=== PATIENT | female | born 1970 | race Caucasian/White ===

== ENCOUNTER 2021-01-22 13:50 | Emergency (ER) | payer MEDICARE ==
[~2021-01-22] VITALS: Ht 162.6 cm; Wt 88.5 kg
[2021-01-22 14:22] LABS: Basophils # (auto) 0.1 10 ^3/uL (0-0.2); Basophils % (auto) 1.1 % (0.0-2.0); Eosinophils # (auto) 0.2 10 ^3/uL (0-0.8); Eosinophils % (auto) 1.7 % (0.0-7.0); Hematocrit 44.3 % (36.0-46.0); Hemoglobin 15.3 g/dL (12.2-16.2); Lymphocytes # (auto) 3.5 10 ^3/uL (0.4-5.4); Mean Corpuscular Hemoglobin 33.6 pg (28.0-32.0); Mean Corpuscular Hgb Conc. 34.5 g/dL (32.0-36.0); Mean Corpuscular Volume 97.4 fL (80.0-100.0); Monocytes # (auto) 0.8 10 ^3/uL (0-1.3); Monocytes % (auto) 8.5 % (0.0-12.0); Neutrophils # (auto) 4.7 10 ^3/uL (1.6-8.6); Neutrophils % (auto) 50.7 % (37.0-80.0); Nucleated Red Blood Cells % 0.1 %; Red Blood Cells 4.54 10^6/uL (4.0-5.20); Red Cell Distribution Width 13.9 % (11.8-14.3); White Blood Cell 9.2 10^3/uL (4.4-10.8)
[2021-01-22 14:54] LABS: Anion Gap 2 (5-15); Blood Urea Nitrogen 17 mg/dL (7-18); Calcium 9.1 mg/dL (8.5-10.1); Carbon Dioxide 33 mmol/L (21-32); Chloride 105 mmol/L (98-107); Glucose 69 mg/dL (74-106); Magnesium 2.5 mg/dL (1.6-2.6); Potassium 3.9 mmol/L (3.5-5.1); Sodium 140 mmol/L (136-145)
[2021-01-22 15:00] LABS: Alanine Aminotransferase 24 U/L (13-56); Alkaline Phosphatase 46 U/L (45-117); Aspartate Aminotransferase 17 U/L (15-37); BUN/Creatinine Ratio 27.4; Bilirubin, Total 0.7 mg/dL (0.2-1.0); GFR African American 129 mL/min; GFR Non-African American 107 mL/min; Total Protein 7.2 g/dL (6.4-8.2)
[2021-01-22 16:30] VITALS: BP 151/99
== END 2021-01-22 16:43 | disposition home or self-care (01) ==
LOC: ER 13:50 → EDBD 13:50 → ER 16:43
DX: J20.9 Acute bronchitis, unspecified (principal); E78.5 Hyperlipidemia, unspecified; Z90.710 Acquired absence of both cervix and uterus; Z90.89 Acquired absence of other organs; Z88.2 Allergy status to sulfonamides
CPT/HCPCS: 36415; 71046; 80053; 83735; 83880; 84484; 85025; 85379; 93005

== ENCOUNTER 2021-10-03 00:05 | Emergency (ER) | payer MEDICARE, BC ==
[~2021-10-03] VITALS: Ht 162.6 cm; Wt 95.3 kg
[2021-10-03 03:56] LABS: Calcium 8.7 mg/dL (8.5-10.1); Potassium 4.3 mmol/L (3.5-5.1)
[2021-10-03 03:57] LABS: Basophils # (auto) 0 10 ^3/uL (0-0.2); Basophils % (auto) 0.3 % (0.0-2.0); Eosinophils # (auto) 0.2 10 ^3/uL (0-0.8); Eosinophils % (auto) 2.4 % (0.0-7.0); Hematocrit 37.8 % (36.0-46.0); Lymphocytes # (auto) 2.6 10 ^3/uL (0.4-5.4); Lymphocytes % (auto) 39.3 % (10.0-50.0); Mean Corpuscular Hemoglobin 31.5 pg (28.0-32.0); Mean Corpuscular Hgb Conc. 34.3 g/dL (32.0-36.0); Mean Corpuscular Volume 91.8 fL (80.0-100.0); Monocytes # (auto) 0.4 10 ^3/uL (0-1.3); Monocytes % (auto) 6.5 % (0.0-12.0); Neutrophils # (auto) 3.4 10 ^3/uL (1.6-8.6); Neutrophils % (auto) 51.5 % (37.0-80.0); Red Blood Cells 4.11 10^6/uL (4.0-5.20); Red Cell Distribution Width 13.1 % (11.8-14.3); White Blood Cell 6.5 10^3/uL (4.4-10.8)
[2021-10-03 04:02] LABS: Albumin 4.3 g/dL (3.4-5.0); BUN/Creatinine Ratio 21.7; Bilirubin, Total 0.6 mg/dL (0.2-1.0); Magnesium 2.9 mg/dL (1.6-2.6)
[2021-10-03 05:10] VITALS: BP 138/78
== END 2021-10-03 05:13 | disposition home or self-care (01) ==
LOC: EDUNIT# 00:05 → ER 00:05
DX: R55 Syncope and collapse (principal); R42 Dizziness and giddiness; Z90.710 Acquired absence of both cervix and uterus
CPT/HCPCS: 36415; 70450; 80053; 83735; 85025; 93005

== ENCOUNTER 2025-02-23 17:35 | Inpatient (IN) | payer OTHER, BC ==
[~2025-02-23] VITALS: Ht 162.6 cm; Wt 92.8 kg
[2025-02-23 18:16] LABS: Basophils # (auto) 0.1 10 ^3/uL (0-0.2); Basophils % (auto) 0.5 % (0.0-2.0); Eosinophils # (auto) 0.1 10 ^3/uL (0-0.8); Eosinophils % (auto) 0.7 % (0.0-7.0); Hematocrit 48.9 % (36.0-46.0); Hemoglobin 16.3 g/dL (12.2-16.2); Lymphocytes # (auto) 2.9 10 ^3/uL (0.4-5.4); Lymphocytes % (auto) 25.4 % (10.0-50.0); Mean Corpuscular Hemoglobin 31.8 pg (28.0-32.0); Mean Corpuscular Hgb Conc. 33.3 g/dL (32.0-36.0); Mean Corpuscular Volume 95.5 fL (80.0-100.0); Monocytes # (auto) 0.6 10 ^3/uL (0-1.3); Monocytes % (auto) 5.4 % (0.0-12.0); Neutrophils # (auto) 7.8 10 ^3/uL (1.6-8.6); Nucleated Red Blood Cells % 0.1 %; Platelet Count (auto) 278 10^3/uL (140-450); Red Blood Cells 5.12 10^6/uL (4.0-5.20); White Blood Cell 11.5 10^3/uL (4.4-10.8)
--- NOTE | 2025-02-23 18:16 | ED.PDOC ---
History of Present Illness HPI Comments 55 y/o obese F is BIBA for c/o chest and back pain, with nausea. Patient endorses on onset of symptoms after smoking marijuana and taking a 'libido enhancing pill,' earlier. She states on pain starting in her sternum and radiating towards her back. Denies any palpitations, shortness of breath, vomiting, fever, chills, or further associated symptoms. 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 Hx Family History Family History: Family hx of heart leta Social History Smoker: Non-Smoker Alcohol: Denies ETOH Use Drugs: Denies Drug Use Lives In: Home All Other Systems: Reviewed and Negative (Comprehensive review of systems are negative unless otherwise stated in HPI) Physical Exam General Appearance: No Apparent Distress, Obese, Other (uncomfortable appearing ) HEENT: Normal ENT Inspection, Pharynx Normal, TMs Normal Neck: Full Range of Motion, Non-Tender, Normal, Normal Inspection Respiratory: Chest Non-Tender, Lungs Clear, No Accessory Muscle Use, No Respiratory Distress, Normal Breath Sounds Cardiovascular: No Edema, No JVD, No Murmur, No Gallop, Normal Peripheral Pulses, Regular Rate/Rhythm Breast Exam: Deferred Gastrointestinal: No Organomegaly, Non Tender, No Pulsatile Mass, Normal Bowel Sounds, Soft Genitalia: Deferred Pelvic: Deferred Rectal: Deferred Extremities: No calf tenderness, Normal capillary refill, Normal inspection, Normal range of motion, Non-tender, No pedal edema Musculoskeletal : Apperance: Normal Neurologic: Alert, 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 Was a procedure done?: No Differential Dx Considerations may include: NV, PE, ACS, PNA, URI, gastritis, anxiety, among others X-Ray, Labs, Meds, VS Vital Signs Date Time Temp Pulse Resp B/P (MAP) Pulse Ox O2 Delivery O2 Flow Rate FiO2 02/23/25 17:48 98.9 90 14 148/89 (108) 100 98.9 Lab Test 02/23/25 18:03 Range/Units White Blood Count 11.5 H 4.4-10.8 10^3/uL Red Blood Count 5.12 4.0-5.20 10^6/uL Hemoglobin 16.3 H 12.2-16.2 g/dL Hematocrit 48.9 H 36.0-46.0 % Mean Corpuscular Volume 95.5 80.0-100.0 fL Mean Corpuscular Hemoglobin 31.8 28.0-32.0 pg Mean Corpuscular Hemoglobin Concent 33.3 32.0-36.0 g/dL Red Cell Distribution Width 14.0 11.8-14.3 % Platelet Count 278 140-450 10^3/uL Mean Platelet Volume 8.2 6.9-10.8 fL Neutrophils (%) (Auto) 68.0 37.0-80.0 % Lymphocytes (%) (Auto) 25.4 10.0-50.0 % Monocytes (%) (Auto) 5.4 0.0-12.0 % Eosinophils (%) (Auto) 0.7 0.0-7.0 % Basophils (%) (Auto) 0.5 0.0-2.0 % Neutrophils # (Auto) 7.8 1.6-8.6 10 ^3/uL Lymphocytes # (Auto) 2.9 0.4-5.4 10 ^3/uL Monocytes # (Auto) 0.6 0-1.3 10 ^3/uL Eosinophils # (Auto) 0.1 0-0.8 10 ^3/uL Basophils # (Auto) 0.1 0-0.2 10 ^3/uL Nucleated Red Blood Cells 0.1 % Prothrombin Time Pending Prothrombin Time INR Pending Activated Partial Thromboplast Time Pending D-Dimer, Quantitative Pending Sodium Level 141 136-145 mmol/L Potassium Level 3.7 3.5-5.1 mmol/L Chloride Level 108 H 98-107 mmol/L Carbon Dioxide Level 23 20-31 mmol/L Anion Gap 10 5-15 Blood Urea Nitrogen 10 9-23 mg/dL Creatinine 0.83 0.550-1.02 mg/dL Glomerular Filtration Rate Calc 82 >90 mL/min BUN/Creatinine Ratio 12.0 10.0-20.0 Serum Glucose 115 H 74-106 mg/dL Calcium Level 10.7 H 8.7-10.4 mg/dL Total Bilirubin 0.7 0.2-1.0 mg/dL Aspartate Amino Transferase (AST) 16 <34 U/L Alanine Aminotransferase (ALT) 12 7-40 U/L Alkaline Phosphatase 60 46-116 U/L Troponin I High Sensitivity 92 *H </=34 ng/L Total Protein 7.8 5.7-8.2 g/dL Albumin 5.4 H 3.2-4.8 g/dL Time of 1ST Reevaluation: 18:30 Reevaluation 1ST: Unchanged Patient Education/Counseling: Diagnosis, Treatment, Need For Follow Up Family Education/Counseling: No Family Present Departure 1 Departure Time of Disposition: 18:47 Impression: Primary Impression: Acute coronary syndrome Disposition: ADMITTED INPATIENT Admit to: Tele Condition: Guarded Comments Chest Pain with Elevated Troponin Chief Complaint: Chest pain radiating to upper back History of Present Illness: Patient is a 55-year-old female who presented to the ED with complaints of substernal chest pressure radiating to her upper back. Symptoms began appr oximately one hour prior to arrival, occurring about 30 minutes after the patient smoked marijuana and took an unidentified libido-enhancing pill. The chest pain is described as pressure-like and is accompanied by nausea. Patient was given aspirin, nitroglycerin, morphine, and Zofran in the ED for symptom management. Initial cardiac workup revealed an elevated troponin level of 92, suggesting myocardial injury. EKG showed sinus arrhythmia without evidence of ST elevation or other acute ischemic changes. Review of Systems: Constitutional: No fever, chills, or fatigue reported. Cardiovascular: Positive for chest pain, described as substernal pressure radiating to the back. Respiratory: No shortness of breath, cough, or wheezing reported. Gastrointestinal: Positive for nausea. No vomiting, abdominal pain, or changes in bowel habits reported. Neurological: No dizziness, syncope, or headache reported. All other systems: Negative or not assessed during this encounter. Medications: Unknown libido-enhancing pill (taken prior to symptom onset) ED medications administered: - Aspirin - Nitroglycerin - Morphine - Ondansetron (Zofran) Social History: Marijuana use: Patient reports recent use prior to symptom onset. Other substance use: Took unidentified libido-enhancing pill prior to symptom onset. Other social history details not documented in this encounter. Lab Results: CBC: - WBC: 11.5 (mildly elevated) - Hemoglobin: 16 - Hematocrit: 49 - Platelets: 278 Chemistry: - Troponin: 92 (elevated) - Other chemistry values unremarkable Imaging and Other Relevant Results: EKG: Sinus arrhythmia, normal sinus rhythm. No evidence of ST elevation NV or acute ischemic changes. Medical Decision Making: Summary Statement: 55-year-old female presenting with acute onset chest pain after marijuana use and ingestion of unknown libido-enhancing pill, with elevated troponin and EKG showing sinus arrhythmia. Problem List: 1. Acute chest pain with elevated troponin (ACS/NSTEMI), 2. Sinus arrhythmia, 3. Substance use (marijuana and unknown pill) temporally related to symptom onset. Differential Diagnosis: 1. Non-ST elevation myocardial infarction (NSTEMI), 2. Unstable angina, 3. Drug-induced myocardial injury, 4. Myocarditis, 5. Stress-induced cardiomyopathy (Takotsubo), 6. Aortic dissection, 7. Pulmonary embolism. ED Course: Patient presented with chest pain and was given aspirin, nitroglycerin, morphine, and Zofran for symptom management. Initial workup revealed elevated troponin (92) with sinus arrhythmia on EKG but no ST elevati ons. Given the elevated troponin and clinical presentation, patient requires admission for acute coronary syndrome management. Assessment and Plan: 1. Acute Coronary Syndrome/NSTEMI: - Elevated troponin (92) with chest pain suggests myocardial injury - EKG shows sinus arrhythmia without ST elevations or acute ischemic changes - Initiated ACS protocol with aspirin, nitroglycerin, and pain management - Admit to cardiology service for further management - Plan for serial cardiac enzymes, continuous cardiac monitoring - Consider cardiac catheterization based on clinical course 2. Substance Use (Marijuana and Unknown Pill): - Temporal relationship between substance use and symptom onset - Consider drug-induced component to cardiac event - Recommend cessation of recreational substances - Toxicology consult if clinical course suggests drug-induced pathology 3. Disposition: - Admit to cardiology service for management of acute coronary syndrome - Continue cardiac monitoring, serial troponins, and appropriate anticoagulation - Further cardiac workup as indicated during admission Additional Notes: Patient admitted for acute coronary syndrome Billing Information: ICD-10: I21.9 - Acute myocardial infarction, unspecified ICD-10: R07.9 - Chest pain, unspecified ICD-10: F12.90 - Cannabis use, unspecified, uncomplicated Critical Care Note Critical Care Time?: Yes (35 min-critical care time only) Critical care comment: Total critical care time: Approximately 36 minutes Due to a high probability of clinically significant, life threatening deterioration, the patient required my highest level of preparedness to intervene emergently and I personally spent this critical care time directly and personally managing the patient. This critical care time included obtaining a history; examining the patient; pulse oximetry; ordering and review of studies; arranging urgent treatment with development of a management plan; evaluation of patient's response to treatment; frequent reassessment; and, discussions with other providers. This critical care time was performed to assess and manage the high probability of imminent, life-threatening deterioration that could result in multi-organ failure. It was exclusive of separately billable procedures and treating other patients. Stability Stability form required: No Heart Score Heart Score: Heart Score Response (Comments) Value History Highly Suspicious 2 EKG Repolarization Disturb 1 Age 45-64 1 Risk Factors 1 or 2 risk factors 1 Troponin >3 x's Normal limit 2 Total 7 I personally scribed for CARMELA DARLING MD ([email or web address]) on 02/23/25 at 18:16. Electronically submitted by Jadon Angeles [email or web address]). CARMELA DARLING MD Feb 23, 2025 18:16
[2025-02-23] MEDS ORDERED: HYDROcodone-ACET 10/325MG TAB PO ONE (18:30)
[2025-02-23] MEDS ORDERED: MAALOX PLUS or MAALOX 30 ML PO ONE (18:30)
--- NOTE | 2025-02-23 18:30 | ECG ---
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
[2025-02-23 18:32] LABS: Alanine Aminotransferase 12 U/L (7-40); Alkaline Phosphatase 60 U/L (46-116); Anion Gap 10 (5-15); Aspartate Aminotransferase 16 U/L (<34); Bilirubin, Total 0.7 mg/dL (0.2-1.0); Blood Urea Nitrogen 10 mg/dL (9-23); Carbon Dioxide 23 mmol/L (20-31); Potassium 3.7 mmol/L (3.5-5.1); Sodium 141 mmol/L (136-145); Total Protein 7.8 g/dL (5.7-8.2)
[2025-02-23 18:36] LABS: Albumin 5.4 g/dL (3.2-4.8); Calcium 10.7 mg/dL (8.7-10.4); Chloride 108 mmol/L (98-107); Glucose 115 mg/dL (74-106)
[2025-02-23] MEDS: ONDANSETRON ODT 4 MG TAB PO ONE (18:45)
[2025-02-23] MEDS: ASPirin 81 mg TAB PO ONE (18:48)
--- NOTE | 2025-02-23 18:49 | DVH ---
CHEST RADIOGRAPH Indication: chest pain Technique: Single frontal view of the chest was obtained Comparison: None FINDINGS: Lines and Tubes: None Lungs and Pleura: No focal consolidation. No effusion. No pneumothorax. Cardiomediastinal contours: Unremarkable Bones: No acute osseous abnormality. IMPRESSION: No acute cardiopulmonary disease.
[2025-02-23] MEDS: NITROGLYCERIN 0.4 MG SL TAB SL ONE (18:52)
[2025-02-23 18:58] VITALS: PULSE 87; RESP 22; O2SAT 95
[2025-02-23 19:11] LABS: INR 0.96 (0.9-1.15); Partial Thromboplastin Time 25.7 SEC (24.5-34.5); Prothrombin Time 10.2 sec (9.3-11.8)
--- NOTE | 2025-02-23 19:14 | ECG ---
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 Electronically Signed On 02-24-2025 17:31:42 PDT by Arash Bautista Please click the below link to view image of tracing.
[2025-02-23 19:30] VITALS: PULSE 85; RESP 17; O2SAT 98
--- NOTE | 2025-02-23 19:43 | DVHHP2 ---
History of Present Illness Reason for Visit: Acute coronary syndrome History of Present Illness The patient is a 55-year-old female morbidly obese with past medical history of DM, HIV, hyperlipidemia, hypertension, and depression who presented to [facility] ED with complaint of chest pain. Patient reports symptoms progressively get worse with substernal chest pain, radiating to her back, admits symptoms started after smoking marijuana and taking libido enhancing pills, getting worse that prompted this visit. Patient was seen and evaluated in the ED, laboratory data shows WBC 11.5, platelets 278, sodium 141, potassium 3.7, BUN 10, creatinine 0.83, glucose 115, calcium 10.7, troponin 92, albumin 5.4, blood pressure 134/94, heart rate 84, temperature 98.9 F, O2 saturation 95% on room air. Chest x-ray show acute cardiopulmonary disease. Please see medication orders section in the computer. On my assessment, patient denies chest pain at this moment, no headache, no dizziness, no diaphoresis, no shortness of breath, no nausea, no vomiting, no fever, no chills. Patient was admitted for further evaluation and medical management. Past Medical History HIV, DM, HLD, HTN, Depression Past Surgical History Hysterectomy, Tonsillectomy Family History Reviewed, noncontributory to the management of this case. Past Social History The patient lives at home, denies smoking, alcohol or illicit drugs abuse. Review of Systems Constitutional: Yes: Weakness; No: Fever, Chills, Sweats, Malaise, Other Eyes: No: Pain, Vision change, Conjunctivae inflammation, Eyelid inflammation, Other, Redness ENT: No: Ear pain, Ear discharge, Nose pain, Nose discharge, Nose congestion, Mouth pain, Mouth swelling, Throat pain, Throat swelling, Other Respiratory: No: Cough, Dry, Shortness of breath, SOB with excertion, Wheezing, Hemoptysis, Pleuritic Pain, Sputum, Wheezing, Other Cardiovascular: Chest Pain; No: Palpitations, Orthopnea, Paroxysmal Noc. Dyspnea, Edema, Lt Headedness, Other Gastrointestinal: No: Nausea, Vomiting, Abdominal Pain, Diarrhea, Constipation, Melena, Hematochezia, Other Genitourinary: No Dysuria, No Frequency, No Incontinence, No Hematuria, No Retention, No Other Musculoskeletal: No: other, neck pain, shoulder pain, arm pain, back pain, hand pain, leg pain, foot pain Skin: No: Rash, Lesions, Jaundice, Bruising, Other Neurological: No: Weakness, Numbness, Incoordination, Change in speech, Confusion, Seizures, Other Allergies: Coded Allergies: Sulfa Antibiotics (Verified Allergy, Unknown, 01/22/21) Varenicline (Verified Allergy, Unknown, SUICIDAL, 02/23/25) Exam Vital Signs Vital Signs Date Time Temp Pulse Resp B/P (MAP) Pulse Ox O2 Delivery O2 Flow Rate FiO2 02/23/25 19:11 84 02/23/25 18:58 22 95 Room Air* 0 21 02/23/25 18:54 135/94 (108) 02/23/25 17:48 98.9 98.9 General Appearance: Alert, Oriented X3, Cooperative, No acute distress HEENT: Atraumatic, PERRLA, EOMI, Mucous membr. moist/pink Respiratory: Clear to auscultation, Normal air movement Cardiovascular: Regular rate, Normal S1, Normal S2, No murmurs Abdominal: Normal bowel sounds, Soft, No tenderness, No hepatospenomegaly, No masses Extremities: No clubbing, No cyanosis, No edema, Normal pulses, No tenderness/swelling Skin: No rashes, No breakdown, No significant lesion Neuro: Normal speech, Normal tone, Sensation intact, Cranial nerves 3-12 NL, Reflexes 2+, Other (Generalized weakness) Psych/Mental Status: Mental status NL, Mood NL Labs/Xrays Labs Test 02/23/25 18:54 02/23/25 18:03 Range/Units Troponin I High Sensitivity 180 *H </=34 ng/L White Blood Count 11.5 H 4.4-10.8 10^3/uL Red Blood Count 5.12 4.0-5.20 10^6/uL Hemoglobin 16.3 H 12.2-16.2 g/dL Hematocrit 48.9 H 36.0-46.0 % Mean Corpuscular Volume 95.5 80.0-100.0 fL Mean Corpuscular Hemoglobin 31.8 28.0-32.0 pg Mean Corpuscular Hemoglobin Concent 33.3 32.0-36.0 g/dL Red Cell Distribution Width 14.0 11.8-14.3 % Platelet Count 278 140-450 10^3/uL Mean Platelet Volume 8.2 6.9-10.8 fL Neutrophils (%) (Auto) 68.0 37.0-80.0 % Lymphocytes (%) (Auto) 25.4 10.0-50.0 % Monocytes (%) (Auto) 5.4 0.0-12.0 % Eosinophils (%) (Auto) 0.7 0.0-7.0 % Basophils (%) (Auto) 0.5 0.0-2.0 % Neutrophils # (Auto) 7.8 1.6-8.6 10 ^3/uL Lymphocytes # (Auto) 2.9 0.4-5.4 10 ^3/uL Monocytes # (Auto) 0.6 0-1.3 10 ^3/uL Eosinophils # (Auto) 0.1 0-0.8 10 ^3/uL Basophils # (Auto) 0.1 0-0.2 10 ^3/uL Nucleated Red Blood Cells 0.1 % Prothrombin Time 10.2 9.3-11.8 sec Prothrombin Time INR 0.96 0.9-1.15 Activated Partial Thromboplast Time 25.7 24.5-34.5 SEC D-Dimer, Quantitative 0.21 0.0-0.49 mg/L FEU Sodium Level 141 136-145 mmol/L Potassium Level 3.7 3.5-5.1 mmol/L Chloride Level 108 H 98-107 mmol/L Carbon Dioxide Level 23 20-31 mmol/L Anion Gap 10 5-15 Blood Urea Nitrogen 10 9-23 mg/dL Creatinine 0.83 0.550-1.02 mg/dL Glomerular Filtration Rate Calc 82 >90 mL/min BUN/Creatinine Ratio 12.0 10.0-20.0 Serum Glucose 115 H 74-106 mg/dL Calcium Level 10.7 H 8.7-10.4 mg/dL Total Bilirubin 0.7 0.2-1.0 mg/dL Aspartate Amino Transferase (AST) 16 <34 U/L Alanine Aminotransferase (ALT) 12 7-40 U/L Alkaline Phosphatase 60 46-116 U/L Total Protein 7.8 5.7-8.2 g/dL Albumin 5.4 H 3.2-4.8 g/dL PATIENT: LUIS DANIEL MIRELES ACCT: [id number] UNIT: [id number] : 1970 LOC: ER ROOM / BED: / AGE / SEX: 55 / F ADM STATUS: REG ER SERVICE 934 ORDERING PHYSICIAN: CARMELA DARLING MD PROCEDURE(s): CXR1 - CHEST XRAY 1 VIEW REASON: chest pain ORDER NUMBER(s): [id number], ACCESSION NUMBER(s): [id number] CHEST RADIOGRAPH Indication: chest pain Technique: Single frontal view of the chest was obtained Comparison: None FINDINGS: Lines and Tubes: None Lungs and Pleura: No focal consolidation. No effusion. No pneumothorax. Cardiomediastinal contours: Unremarkable Bones: No acute osseous abnormality. IMPRESSION: No acute cardiopulmonary disease. Assessment/Plan Assessment/Plan Acute coronary syndrome Generalized weakness Leukocytosis, unspecified Plan 1. Admit to telemetry unit 2. Breathing treatment 3. Pain control management 4. IV antibiotic management 5. Management of fluids and electrolytes 6. Consultation for Cardiology/hospitalist 7. Diagnostic test chest x-ray 8. DVT prophylaxis-on aspirin 9. Repeat labs CBC, CMP in a.m. 10. Home medication reviewed and reconciled 11. Continue with current medical management 12. Treatment plan discussed with patient and RN. Patient verbalized u nderstanding. Plan discussed with: Patient, Other (RN) My Orders Orders - CLADUETTE HEATH DNP Procedure Category Date Status Time Aspirin Tablet PHA 02/24/25 Verified 10:00 Atorvastatin (Lipitor) PHA 02/23/25 Verified 22:00 Amlodipine Tablet PHA 02/24/25 Verified (Norvasc Tablet) 10:00 Hydralazine Injection PHA 02/23/25 Verified (Apresoline Inject 19:45 Trazodone Hcl PHA 02/23/25 Verified (Desyrel) 22:00 Buspirone Hcl Tablet PHA 02/23/25 Verified (Buspar Tablet) 22:00 Famotidine Injection PHA 02/24/25 Verified (Pepcid Injection) 10:00 Ceftriaxone Ivpb PHA 02/24/25 Verified Rocephin 09:00 Ceftriaxone Ivpb PHA 02/23/25 Verified Rocephin 19:45 Glucose Blood PHA 02/23/25 Verified (Accu-Chek Comfort 22:00 Mild Sliding Scale PHA 02/23/25 Verified 22:00 Dextrose 50% Syringe PHA 02/23/25 Verified 19:45 Admit ADMIT 02/23/25 Verified 19:33 Allergies ROCIO 02/23/25 Verified 19:33 Code Status CODE 02/23/25 Verified 19:33 Sodium Chloride Lock PHA 02/23/25 Verified (Saline Lock Ns) 22:00 Oxygen Per Hour RT 02/23/25 Verified 19:33 Hydrocodone-Acet PHA 02/23/25 Verified 5/325mg Tab (Reagan 19:45 Ondansetron Hcl PHA 02/23/25 Verified (Zofran) 19:45 Docusate Sodium PHA 02/23/25 Verified Capsule (Colace 19:45 Complete Blood Count LAB 02/24/25 Verified 04:00 Comprehensive LAB 02/24/25 Verified Metabolic Panel 04:00 Condition: Serious ROCIO 02/23/25 Verified 19:33 Acetaminophen Tablet PHA 02/23/25 Verified (Tylenol Tablet) 19:45 Bedrest With Bathroom [facility] 02/23/25 Verified Privileg 19:33 Sequential [facility] 02/23/25 Verified Compression Device Nitroglycerin [facility] 02/23/25 Verified Sublingual (Ntrostat 19:[address] 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
--- NOTE | 2025-02-23 19:44 | ECG ---
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
[2025-02-23] MEDS ORDERED: MORPHINE SULFATE INJ 2 MG/ml SYRG IV PRN (19:45)
[2025-02-23] MEDS ORDERED: NITROGLYCERIN 0.4 MG SL TAB SL PRN (19:45)
[2025-02-23] MEDS ORDERED: DEXTROSE (50%) 50ML SYRG IV PRN (19:45)
[2025-02-23] MEDS ORDERED: ACETAMINOPHEN 325 MG TAB PO PRN (19:45)
[2025-02-23] MEDS ORDERED: DOCUSATE SOD 100 MG CAP PO PRN (19:45)
[2025-02-23] MEDS ORDERED: hydrALAZINE HCL 20 MG/ML VL IV PRN (19:45)
[2025-02-23] MEDS: MORPHINE SULFATE 4 MG/ML SYR/VIAL IV ONE (19:51)
[2025-02-23] MEDS: ONDANSETRON HCL 4 MG/2 ML VIAL IV PRN (19:51)
[2025-02-23] MEDS: ONDANSETRON HCL 4 MG/2 ML VIAL IV ONE (19:52)
[2025-02-23] MEDS: cefTRIAXone 1GM/50ML D5W 50 ML IV ONE (19:53)
[2025-02-23] MEDS ORDERED: InsuLIN REG 1unit/0.01ml Soln (100units/ml) SC SCH (22:00)
[2025-02-23] MEDS: SODIUM CHLOR 0.9% PF (SALINE LOCK) 10ML VIAL/SYR IV SCH (22:12)
[2025-02-23] MEDS: ACCU-CHEK COMFORT CURVE STRIP VI SCH (22:16)
[2025-02-23] MEDS: traZODone HCL 50 MG TAB PO SCH (22:33)
[2025-02-23] MEDS: ATORVASTATIN 20 MG TAB PO SCH (22:37)
[2025-02-23] MEDS: busPIRone HCL 10 MG TAB PO SCH (22:37)
[2025-02-23] MEDS: HYDROcodone-ACET 5/325MG TAB PO PRN (22:59)
[2025-02-23 23:01] LABS: Urine Bacteria None Seen /hpf (None Seen)
[2025-02-23 23:10] LABS: Urine Blood 1+ /uL (Negative); Urine Clarity Clear (Clear); Urine Color Yellow (Yellow); Urine Mucus FEW (None Seen); Urine Protein, UAD TRACE (Negative); Urine Specific Gravity 1.023 (1.001-1.035); Urine Squamous Epithelial Cell FEW /hpf (<5); Urine Urobilinogen Normal (Negative); Urine WBC 2 /HPF (0-5)
[2025-02-24] VITALS (11 sets, daily range): BP systolic 103–152; BP diastolic 55–83; PULSE 79–98; RESP 16–99; TEMP 98.1–99; O2SAT 95–99
[2025-02-24] MEDS: clonazePAM 0.5 MG TAB PO PRN (04:05)
[2025-02-24 04:47] LABS: Basophils # (auto) 0 10 ^3/uL (0-0.2); Basophils % (auto) 0.4 % (0.0-2.0); Eosinophils # (auto) 0 10 ^3/uL (0-0.8); Eosinophils % (auto) 0.1 % (0.0-7.0); Hematocrit 47.8 % (36.0-46.0); Hemoglobin 16.5 g/dL (12.2-16.2); Lymphocytes # (auto) 1.1 10 ^3/uL (0.4-5.4); Lymphocytes % (auto) 11.6 % (10.0-50.0); Mean Corpuscular Hemoglobin 32.5 pg (28.0-32.0); Mean Corpuscular Hgb Conc. 34.6 g/dL (32.0-36.0); Monocytes # (auto) 0.2 10 ^3/uL (0-1.3); Monocytes % (auto) 2.6 % (0.0-12.0); Neutrophils % (auto) 85.3 % (37.0-80.0); Nucleated Red Blood Cells % 0.1 %; Platelet Count (auto) 227 10^3/uL (140-450); Red Blood Cells 5.08 10^6/uL (4.0-5.20); Red Cell Distribution Width 13.9 % (11.8-14.3); White Blood Cell 9.4 10^3/uL (4.4-10.8)
[2025-02-24 05:04] LABS: Alanine Aminotransferase 10 U/L (7-40); Alkaline Phosphatase 59 U/L (46-116); Anion Gap 12 (5-15); Aspartate Aminotransferase 19 U/L (<34); BUN/Creatinine Ratio 14.8 (10.0-20.0); Calcium 9.1 mg/dL (8.7-10.4); Carbon Dioxide 21 mmol/L (20-31); Sodium 141 mmol/L (136-145); Total Protein 7.2 g/dL (5.7-8.2)
[2025-02-24 05:05] LABS: Bilirubin, Total 0.6 mg/dL (0.2-1.0)
[2025-02-24 05:06] LABS: Blood Urea Nitrogen 9 mg/dL (9-23); Chloride 108 mmol/L (98-107); Glucose 147 mg/dL (74-106); Potassium 3.4 mmol/L (3.5-5.1)
[2025-02-24] MEDS: amLODIPine BESYLATE 5 MG TAB PO SCH (10:15)
[2025-02-24] MEDS: ASPirin 81 mg TAB PO SCH (10:16)
[2025-02-24] MEDS: FAMOTIDINE (10MG/ML) 2ML VL IV SCH (10:16)
[2025-02-24] MEDS: clonazePAM 0.5 MG TAB ONE (12:24)
[2025-02-24] MEDS: NITROGLYCERIN 0.4 MG SL TAB SL ONE (14:00)
--- NOTE | 2025-02-24 14:05 | DVHPN2 ---
Subjective Patient currently having substernal chest pain and nausea. Reviewed: Care Plan, H&P, Labs, Medications Changes from previous H/P or p: No Changes General: Per HPI Eyes: No Pain, No Vision change, No Conjunctivae inflammation, No Eyelid inflammation, No Other, No Redness ENT: No Ear pain, No Ear discharge, No Nose pain, No Nose discharge, No Nose congestion, No Mouth pain, No Mouth swelling, No Throat pain, No Throat swelling, No Other Cardiovascular: Chest Pain; No Palpitations, No Orthopnea, No Paroxysmal Noc. Dyspnea, No Edema, No Lt Headedness, No Other Respiratory: No Cough, No Dry, No Shortness of breath, No SOB with excertion, No Wheezing, No Hemoptysis, No Pleuritic Pain, No Sputum, No Other Gastrointestinal: No Nausea, No Vomiting, No Abdominal Pain, No Diarrhea, No Constipation, No Melena, No Hematochezia, No Other Genitourinary: No Dysuria, No Frequency, No Incontinence, No Hematuria, No Retention, No Other Musculoskeletal: No other, No neck pain, No shoulder pain, No arm pain, No back pain, No hand pain, No leg pain, No foot pain Skin: No Rash, No Lesions, No Jaundice, No Bruising, No Other Objective Vitals Vital Signs Date Time Temp Pulse Resp B/P (MAP) Pulse Ox O2 Delivery O2 Flow Rate FiO2 02/24/25 10:15 122/83 02/24/25 08:00 76 18 97 02/24/25 08:00 Room Air* 0 21 02/24/25 04:00 98.1 98.1 Intake/Output Intake and Output 02/24/25 07:00 Intake Total 50 ml Balance 50 ml Intake IV Total 50 ml General Appearance: Alert, Oriented X3, Cooperative, moderate distress HEENT: Atraumatic, PERRLA Lungs: Clear to auscultation, Normal air movement Cardiovascular: Normal S1, Normal S2 Abdomen: Normal bowel sounds, Soft, No tenderness, No hepatospenomegaly Musculoskeletal: Normal sensory function, Normal motor function Neuro: Normal gait, Normal speech Skin: Dry, Intact Psych/Mental Status: Mental status NL, Other (Patient anxious) Medications Current Medications Medications Dose Ordered Sig/Cherise Route Start Time Stop Time Status Last Admin Dose Admin Aspirin 81 mg DAILY PO 02/24/25 10:00 02/24/25 10:16 81 MG Atorvastatin Calcium 20 mg HS PO 02/23/25 22:00 02/23/25 22:37 20 MG Amlodipine Besylate 5 mg DAILY PO 02/24/25 10:00 02/24/25 10:15 5 MG Hydralazine HCl 10 mg Q6HP PRN IV 02/23/25 19:45 Buspirone HCl 10 mg Q12HR PO 02/23/25 22:00 02/24/25 10:15 10 MG Famotidine 20 mg DAILY IV 02/24/25 10:00 02/24/25 10:16 20 MG Ceftriaxone Sodium 50 ml @ 100 mls/hr Q24H IV 02/24/25 21:00 Sodium Chloride 10 ml Q8HR IV 02/23/25 22:00 02/24/25 05:12 10 ML Acetaminophen/ Hydrocodone Bitart 1 tab Q4HP PRN PO 02/23/25 19:45 02/24/25 05:39 1 TAB Ondansetron HCl 4 mg Q4HP PRN IV 02/23/25 19:45 02/24/25 12:24 4 MG Docusate Sodium 100 mg BIDPRN PRN PO 02/23/25 19:45 Acetaminophen 650 mg Q6HP PRN PO 02/23/25 19:45 Nitroglycerin 0.4 mg Q5MINP PRN SL 02/23/25 19:45 Morphine Sulfate 2 mg Q30M PRN IV 02/23/25 19:45 Clonazepam 1 mg Q8HP PRN PO 02/24/25 04:00 02/24/25 12:24 1 MG Heparin Sodium/ Dextrose 250 ml @ 10.92 mls/ hr [id number] IV 02/24/25 14:00 UNV Laboratory Results Laboratory Tests 02/24/25 04:39 Chemistry Test 02/23/25 18:03 02/24/25 04:39 Albumin 5.4 g/dL (3.2-4.8) H 5.0 g/dL (3.2-4.8) H Calcium Level 10.7 mg/dL (8.7-10.4) H 9.1 mg/dL (8.7-10.4) Total Protein 7.8 g/dL (5.7-8.2) 7.2 g/dL (5.7-8.2) Coagulation Test 02/23/25 18:03 Prothrombin Time 10.2 sec (9.3-11.8) Prothrombin Time INR 0.96 (0.9-1.15) Activated Partial Thromboplast Time 25.7 SEC (24.5-34.5) D-Dimer, Quantitative 0.21 mg/L FEU (0.0-0.49) LFT Test 02/23/25 18:03 02/24/25 04:39 Alanine Aminotransferase (ALT) 12 U/L (7-40) 10 U/L (7-40) Alkaline Phosphatase 60 U/L (46-116) 59 U/L (46-116) Aspartate Amino Transferase (AST) 16 U/L (<34) 19 U/L (<34) Total Bilirubin 0.7 mg/dL (0.2-1.0) 0.6 mg/dL (0.2-1.0) HgA1c, TSH Test 02/23/25 18:03 Hemoglobin A1c 5.2 % A1C (<5.7) Urinalysis Test 02/23/25 22:50 Urine Color Yellow (Yellow) Urine Clarity Clear (Clear) Urine pH 6.0 (5.0-9.0) Urine Specific [place] 1.023 (1.001-1.035) Urine Protein Trace (Negative) H Urine Ketones 2+ (Negative) H Urine Blood 1+ /uL (Negative) H Urine Nitrite Negative (Negative) Urine Bilirubin Negative (Negative) Urine Urobilinogen Normal mg/dL (Negative) Urine Leukocyte Esterase Trace /uL (Negative) Urine RBC 23 /hpf (0 - 4) Urine Microscopic WBC 2 /HPF (0-5) Urine Squamous Epithelial Cells Few /hpf (<5) Urine Bacteria None seen /hpf (None Seen) Urine Mucus Few (None Seen) Urine Glucose Trace mg/dL (Normal) Labs and/or images reviewed: Labs reviewed by me, Image(s) reviewed by me Assessment/Plan Assessment/Plan Impression: -NSTEMI type 1 with unstable angina -primary hypertension -depression -diabetes mellitus -dyslipidemia Obesity Plan: -assessed with the patient on the telemetry floor with noted nausea, persistent chest pain. Patient also reporting having previous diaphoresis and dyspnea. -ACS protocol -start heparin bolus and drip -regular insulin sliding scale -continue antidepressants, antianxiety medications -cardiology consultation. Discussed with Cardiology [employer] OPERATOR, Mr. Craig, -keeping NPO at this time -sublingual nitroglycerin -repeat troponin level -steady EKG -discussed with the patient and family bedside that patient may require left heart catheterization to investigate coronary anatomy, with the possibility being today Critical care time spent with patient discussing and formulating plan of care: 90 minutes. This does not include time spent performing procedures. This medical document was created using an electronic medical record system with [employer] dictation system. Although this document has been carefully reviewed, there may still be some phonetic and typographical errors. These areas are purely typographical due to imperfections of the software programs, and do not reflect any compromise in the patient's medical care. Plan discussed with: Patient, Other (RN) My Orders Orders - SHERIN CASTAÑEDA NP Procedure Category Date Status Time * Cardiology Consult CONS 02/24/25 Transmitted 13:37 Troponin-I Hs LAB 02/24/25 In Process 13:38 Echo 2d Mode Cardiac US 02/24/25 Logged DOP 13:38 Platelet Monitoring ROCIO 02/24/25 In Process 13:53 Heparin Per ROCIO 02/24/25 In Process Standardized Proce 13:53 Discontinue All Im ROCIO 02/24/25 In Process Injections 13:53 PTPTT LAB 02/24/25 Logged 13:53 Complete Blood Count LAB 02/24/25 Logged 13:53 Heparin Sodium PHA 02/24/25 Logged (Porcine) 14:00 Heparin Drip/D5w PHA 02/24/25 Logged 100units/Ml 14:00 Potassium Chloride PHA 02/24/25 Logged (Potassium Chloride). 14:00 Nitroglycerin PHA 02/24/25 Logged Sublingual (Ntrostat 14:00 Date of Service: Feb 24, 2025 Billing Provider: SHERIN CASTAÑEDA NP Common Visit Codes: [id number] CARE 30-74 MIN, [id number] CARE-EACH +30MIN SHERIN CASTAÑEDA NP Feb 24, 2025 14:05
[2025-02-24 14:15] LABS: Basophils # (auto) 0.1 10 ^3/uL (0-0.2); Basophils % (auto) 0.4 % (0.0-2.0); Eosinophils # (auto) 0.1 10 ^3/uL (0-0.8); Eosinophils % (auto) 0.5 % (0.0-7.0); Hemoglobin 16.7 g/dL (12.2-16.2); Lymphocytes # (auto) 1.6 10 ^3/uL (0.4-5.4); Lymphocytes % (auto) 9.3 % (10.0-50.0); Mean Corpuscular Hemoglobin 31.6 pg (28.0-32.0); Mean Corpuscular Hgb Conc. 33.3 g/dL (32.0-36.0); Mean Corpuscular Volume 94.7 fL (80.0-100.0); Monocytes # (auto) 1.3 10 ^3/uL (0-1.3); Monocytes % (auto) 7.4 % (0.0-12.0); Neutrophils # (auto) 14.5 10 ^3/uL (1.6-8.6); Neutrophils % (auto) 82.4 % (37.0-80.0); Platelet Count (auto) 276 10^3/uL (140-450); Red Blood Cells 5.28 10^6/uL (4.0-5.20); Red Cell Distribution Width 13.8 % (11.8-14.3); White Blood Cell 17.5 10^3/uL (4.4-10.8)
--- NOTE | 2025-02-24 14:19 | CONS ---
Pharmacy Clinical Information: AFTER LOCOMOTIVE MECHANIC DRAWS SAMPLE FOR BASELINE LABS, PLEASE BOLUS 4000 UNITS H EPARIN IV, THEN INITIATE HEPARIN DRIP AT RATE 1000 UNITS/HR (ACS PROTOCOL FOR PATIENT WEIGHT = 91 KG). NO NEED TO WAIT FOR LABS TO RESULT. NEXT APTT DRAW SCHEDULED FOR 2100 PER RX PROTOCOL. CONY CONTRERAS PHARMACIST Feb 24, 2025 14:19
--- NOTE | 2025-02-24 14:25 | ECG ---
[facility] Test Date: 2025-02-24 Test Time: 13:56:18 Pat Name: LUIS DANIEL MIRELES Department: Respiratoy Room: 0221T B Gender: F Tomography Technologist: NATALIE : 1970 Requested By: SHIELA URBINA Order Number: [id number] Reading MD: Arash Bautista Measurements Intervals [place] Rate: 90 P: 56 OK: 200 QRS: 50 QRSD: 103 T: 13 QT: 418 QTc: 512 Interpretive Statements Sinus rhythm Probable inferior infarct, old Prolonged QT interval Electronically Signed On 02-24-2025 17:36:05 PDT by Arash Bautista Please click the below link to view image of tracing.
[2025-02-24 14:30] LABS: Partial Thromboplastin Time 27.3 SEC (24.5-34.5); Prothrombin Time 10.6 sec (9.3-11.8)
[2025-02-24] MEDS: ONDANSETRON HCL 4 MG/2 ML VIAL IV ONE (14:35)
[2025-02-24] MEDS: KETOROLAC TROMETH 30 MG/ML 1ML VIAL IV ONE ×2 (14:36→17:45)
[2025-02-24] MEDS: HEPARIN SODIUM (PORCINE) 5000 UNITS/ML 1ML VIAL IV ONE (15:03)
[2025-02-24] MEDS: HEPARIN DRIP/D5W 100UNITS/ML 250 ML IV SCH (15:06)
[2025-02-24] MEDS: fentaNYL CITRATE 100 MCG/2 ML VL ONE (16:16)
[2025-02-24] MEDS: VERAPAMIL 2.5MG/ML INJ 2ML VIAL IV ONE (16:16)
[2025-02-24] MEDS: ANGIOMAX 250 MG VIAL IV ONE (16:16)
[2025-02-24] MEDS: HEPARIN SODIUM (PORCINE) 5000 UNITS/ML 1ML VIAL ONE (16:17)
[2025-02-24] MEDS: NITROGLYCERIN 50MG/250ML 250 ML IV ONE (16:17)
[2025-02-24] MEDS: SODIUM CHL 0.9% 50 ML ONE (16:17)
[2025-02-24] MEDS: IODIXANOL 320MG/ML 100ML BTL IV ONE (16:17)
[2025-02-24] MEDS: MIDAZOLAM HCL 2MG/2ML 2ml VIAL (1mg/ml) ONE (16:17)
--- NOTE | 2025-02-24 16:17 | DVHINCON2 ---
Date Seen: Feb 24, 2025 Referring Physician Carlos Reason for Consultation NSTEMI History of Present Illness 55-year-old female with PMH for HTN, HLD, HFpEF, tobacco use 1-2 packs daily presents to the hospital with chest pain. Patient states chest pain started day of presentation, sharp in nature, retrosternal, radiating to the back, worsens with deep inhalation, at times positional, intermittent associated with shortness of breath, nausea, vomiting. Upon evaluation in the ER patient noted to have mildly elevated troponins trending 92, 180, 318. Overnight troponins continued to trend up this morning 684 and now 3372. Patient continued to have intermittent chest pain with nausea and vomiting. Patient placed on heparin drip. Cardiology consulted. EKG reviewed and shows sinus rhythm at 84 beats per minute, no acute ST and T- wave abnormality noted. Patient had repeat EKG done with no significant change. Past Medical History As stated above Past Surgical History No previous cardiac surgeries. Family History: Diabetes mellitus GRANDMA Family History Denies pertinent family cardiac history. Social History Denies alcohol, illicit drug use. Patient endorses heavy tobacco use with at times 2 PACs up to 3 packs of cigarettes a day or every other day Allergies: Coded Allergies: Sulfa Antibiotics (Verified Allergy, Unknown, 01/22/21) Varenicline (Verified Allergy, Unknown, SUICIDAL, 02/23/25) Trazodone (Verified Adverse Reaction, Unknown, NIGHTMARE, 02/23/25) Current Medications Current Medications Medications (Trade) Dose Ordered Sig/Cherise Route PRN Reason Start Time Stop Time Status Last Admin Aspirin 81 mg DAILY PO 02/24/25 10:00 02/24/25 10:16 Atorvastatin Calcium (Lipitor) 20 mg HS PO 02/23/25 22:00 02/23/25 22:37 Amlodipine Besylate (Norvasc Tablet) 5 mg DAILY PO 02/24/25 10:00 02/24/25 10:15 Hydralazine HCl (Apresoline Injection) 10 mg Q6HP PRN IV SBP>150 02/23/25 19:45 Trazodone HCl (Desyrel) 150 mg HS PO 02/23/25 22:00 02/23/25 22:49 DC Buspirone HCl (Buspar Tablet) 10 mg Q12HR PO 02/23/25 22:00 02/24/25 10:15 Famotidine (Pepcid Injection) 20 mg DAILY IV 02/24/25 10:00 02/24/25 10:16 Ceftriaxone Sodium 50 ml @ 100 mls/hr Q24H IV 02/24/25 21:00 Diagnostic Test (Pha) (Accu-Chek Comfort Curve T) 1 strip ACHS 02/23/25 22:00 02/23/25 22:33 DC 02/23/25 22:16 Insulin Human Regular (InsuLIN R) ACHS SC 02/23/25 22:00 02/23/25 22:33 DC Dextrose 50 ml UD PRN IV Blood Sugar LESS THAN 60 02/23/25 19:45 02/23/25 22:49 DC Sodium Chloride (Saline Lock Ns) 10 ml Q8HR IV 02/23/25 22:00 02/24/25 14:46 Acetaminophen/ Hydrocodone Bitart ([place] 5/325MG Tab) 1 tab Q4HP PRN PO MODERATE PAIN (4-6 PAIN SCALE) 02/23/25 19:45 02/24/25 05:39 Ondansetron HCl (Zofran) 4 mg Q4HP PRN IV NAUSEA / VOMITING 02/23/25 19:45 02/24/25 12:24 Docusate Sodium (Colace Capsule) 100 mg BIDPRN PRN PO FOR CONSTIPATION 02/23/25 19:45 Acetaminophen (Tylenol Tablet) 650 mg Q6HP PRN PO PAIN SCALE 1-3 OR TEMP>100.4 02/23/25 19:45 Nitroglycerin (Ntrostat Sublingual) 0.4 mg Q5MINP PRN SL FOR CHEST PAIN 02/23/25 19:45 Morphine Sulfate 2 mg Q30M PRN IV FOR CHEST PAIN 02/23/25 19:45 Clonazepam (KlonoPIN TABLET) 1 mg Q8HP PRN PO ANXIETY 02/24/25 04:00 02/24/25 12:24 Heparin Sodium/ Dextrose 250 ml @ 10 mls/hr Q24H IV 02/24/25 14:00 02/24/25 15:06 Review of Systems Constitutional: No: Fever, Chills, Sweats, Weakness, Malaise, Other Eyes: No: Pain, Vision change, Conjunctivae inflammation, Eyelid inflammation, Other, Redness ENT: No: Ear pain, Ear discharge, Nose pain, Nose discharge, Nose congestion, Mouth pain, Mouth swelling, Throat pain, Throat swelling, Other Respiratory: No: Cough, Dry, Shortness of breath, SOB with exertion, Wheezing, Hemoptysis, Pleuritic Pain, Sputum, Wheezing, Other Cardiovascular: ; No: Chest Pain Palpitations, Orthopnea, Paroxysmal Noc. Dyspnea, Edema, Lt Headedness, Other Gastrointestinal: No: Nausea, Vomiting, Abdominal Pain, Diarrhea, Constipation, Melena, Hematochezia, Other Genitourinary: No Dysuria, No Frequency, No Incontinence, No Hematuria, No Retention, No Other Musculoskeletal: neck pain; No: other, shoulder pain, arm pain, back pain, hand pain, leg pain, foot pain Skin: No: Rash, Lesions, Jaundice, Bruising, Other Neurological: Other (Dizziness, headache.); No: Weakness, Numbness, Incoordination, Change in speech, Confusion, Seizures Vital Signs Vital Signs Date Time Temp Pulse Resp B/P (MAP) Pulse Ox O2 Delivery O2 Flow Rate FiO2 02/24/25 15:28 98.4 85 18 141/81 (101) 99 98.4 02/24/25 15:28 Nasal Cannula* 2 28 Labs/Diagnostic Data Labs Test 02/24/25 14:05 02/24/25 04:39 02/23/25 22:50 02/23/25 22:15 Range/Units White Blood Count 17.5 #H 4.4-10.8 10^3/uL Red Blood Count 5.28 H 4.0-5.20 10^6/uL Hemoglobin 16.7 H 12.2-16.2 g/dL Hematocrit 50.0 H 36.0-46.0 % Mean Corpuscular Volume 94.7 80.0-100.0 fL Mean Corpuscular Hemoglobin 31.6 28.0-32.0 pg Mean Corpuscular Hemoglobin Concent 33.3 32.0-36.0 g/dL Red Cell Distribution Width 13.8 11.8-14.3 % Platelet Count 276 140-450 10^3/uL Mean Platelet Volume 8.2 6.9-10.8 fL Neutrophils (%) (Auto) 82.4 H 37.0-80.0 % Lymphocytes (%) (Auto) 9.3 L 10.0-50.0 % Monocytes (%) (Auto) 7.4 0.0-12.0 % Eosinophils (%) (Auto) 0.5 0.0-7.0 % Basophils (%) (Auto) 0.4 0.0-2.0 % Neutrophils # (Auto) 14.5 H 1.6-8.6 10 ^3/uL Lymphocytes # (Auto) 1.6 0.4-5.4 10 ^3/uL Monocytes # (Auto) 1.3 0-1.3 10 ^3/uL Eosinophils # (Auto) 0.1 0-0.8 10 ^3/uL Basophils # (Auto) 0.1 0-0.2 10 ^3/uL Nucleated Red Blood Cells 0.0 % Prothrombin Time 10.6 9.3-11.8 sec Prothrombin Time INR 1.00 0.9-1.15 Activated Partial Thromboplast Time 27.3 24.5-34.5 SEC Troponin I High Sensitivity 3372 *H </=34 ng/L Sodium Level 141 136-145 mmol/L Potassium Level 3.4 L 3.5-5.1 mmol/L Chloride Level 108 H 98-107 mmol/L Carbon Dioxide Level 21 20-31 mmol/L Anion Gap 12 5-15 Blood Urea Nitrogen 9 9-23 mg/dL Creatinine 0.61 0.550-1.02 mg/dL Glomerular Filtration Rate Calc 104 >90 mL/min BUN/Creatinine Ratio 14.8 10.0-20.0 Serum Glucose 147 H 74-106 mg/dL Calcium Level 9.1 8.7-10.4 mg/dL Total Bilirubin 0.6 0.2-1.0 mg/dL Aspartate Amino Transferase (AST) 19 <34 U/L Alanine Aminotransferase (ALT) 10 7-40 U/L Alkaline Phosphatase 59 46-116 U/L Total Protein 7.2 5.7-8.2 g/dL Albumin 5.0 H 3.2-4.8 g/dL Urine Color Yellow Yellow Urine Clarity Clear Clear Urine pH 6.0 5.0-9.0 Urine Specific [place] 1.023 1.001-1.035 Urine Protein Trace H Negative Urine Ketones 2+ H Negative Urine Blood 1+ H Negative /uL Urine Nitrite Negative Negative Urine Bilirubin Negative Negative Urine Urobilinogen Normal Negative mg/dL Urine Leukocyte Esterase Trace Negative /uL Urine RBC 23 0 - 4 /hpf Urine Microscopic WBC 2 0-5 /HPF Urine Squamous Epithelial Cells Few <5 /hpf Urine Bacteria None seen None Seen /hpf Urine Mucus Few None Seen Urine Glucose Trace Normal mg/dL POC Glucose 135 H 70-106 mg/dl Test 02/23/25 18:03 Range/Units D-Dimer, Quantitative 0.21 0.0-0.49 mg/L FEU Hemoglobin A1c 5.2 <5.7 % A1C Assessment * NSTEMI- continue heparin drip. Troponins up trending. EKG negative for acute ST abnormality.Recommend cardiac catheterization +/- PCI. All risks, benefits, and alternatives of cardiac catheterization explained to the patient including the risk of stroke, LA, , coronary perforation, pericardial tamponade, contrast induced nephropathy, need for emergent CABG, mechanical support, mechanical ventilation, and bleeding from vascular complications from the procedure. Patient is agreeable to proceed with procedure. * HTN - stable on current regimen, continue monitoring. * Psych disorder - management per primary team. * Dyslipidemia - statin * Chronic HFpEF - does not seem fluid overloaded, CXR negative for co ngestion/edema. Follow up echo. Case Discussed with Dr Bautista. Plan as above. Follow up echo. Critical care, time spent: 48 minutes This medical document was created using an electronic medical record system with voice recognition software and computerized dictation system. Although this document has been carefully reviewed, there might still be some phonetic and typographical errors. Occasional wrong-word or ``sound-alike substitutions may have occurred due to the inherent limitations of voice recognition software. These areas are purely typographical due to imperfections of the software programs and do not reflect any compromise in the patient's medical care. Please read the chart carefully and recognize, using context, where these substitutions have occurred. Thank you for allowing me to participate in the management of this patient. The treatment plan was discussed with and agreed upon by patient/family including requesting consultants and ordering of imaging/procedures. Plan discussed with: Patient NYHA Physical activity limitations: Class2(Slight)fatigue,sob Date of Service: Feb 24, 2025 Billing Provider: SHIELA URBINA Cardiology Common Codes: [id number] INP/OBS CARE (High), [id number] CARE 30-74 MIN SHIELA URBINA Feb 24, 2025 16:17
[2025-02-24] MEDS: LIDOCAINE 2%HCL (LOCAL ANESTH.) INJ 20ML MDV ONE (16:23)
--- NOTE | 2025-02-24 17:54 | DVHOP2 ---
Operative Report - 2 Report Details Date: 02/24/25 Preop Diagnosis: CAD Postop Diagnosis: Normal coronaries, possible pericarditis. Surgeon: Marley Bautista MD Anesthesiologist: Conscious sedation Anesthesia: Mac, Local Consent: The patient was informed of the risks and benefits of the procedure. These include but are not limited to complications of anesthesia, postoperative infection, incomplete relief of symptoms, recurrence of symptoms, damage to blood vessels, nerves and tendons, deep venous thrombosis, pulmonary embolism and possible need for repeat surgery in the future. Complications: No complications Findings: Normal coronary arteries. Normal LV function. Indications for Surgery: Chest pain. Abnormal troponins. Name of Procedure Performed Left heart catheterization. Bilateral cine coronary angiography. Left ventriculography. Procedure Details Procedure Details: Prior local anesthesia with 2% lidocaine to the right wrist and full informed consent obtained the patient was prepped and draped in the usual fashion followed by placement of a six Egyptian sheath into the right radial artery through which a six Egyptian multipurpose catheter was used to cannulate both right and left coronary ostia and ventriculography. No complications. Patient tolerated the procedure well. Hemodynamics: Aortic blood pressure was 130/70. End-diastolic pressure was 15. There was no gradient across the aortic valve on pullback. Coronary anatomy: RCA is a large vessel it is normal in its proximal mid and distal segments. PDA and posterolateral branches are normal. The left main is large and normal. The left anterior descending is a large vessel it is normal in its proximal mid and distal segments. PDA and posterolateral branches are normal. The circumflex is large vessel the two marginals free of significant disease. The vessel is normal as are the marginals. Ventriculography in the NEW projection shows an EF of 60%. Impression: Normal left ventricular end-diastolic pressure arrest with normal ejection fraction. No significant CAD. Recommendations: Medical therapy is warranted, continue risk factor modification. Condition Good Disposition Still a Patient Date of Service: Feb 24, 2025 Billing Provider: MARLEY BAUTISTA Sr., MD Cardiology Common Codes: [id number] INP/OBS CARE (High) Cardiology Procedure Codes: 72565-[id number] HEART CATH W/INTRA INJ MARLEY BAUTISTA Sr., MD Feb 24, 2025 17:54
--- NOTE | 2025-02-24 18:09 | DVHSR ---
APPROVED REPORT EXAM: LIMITED Two-dimensional and M-mode echocardiogram with Doppler and color Doppler. Blood Pressure: 122/83 mmHg INDICATION NSTEMI RISK FACTORS Height: 5' 6", Weight: 200 DIMENSIONS LVDd4.9 (3.8-5.7cm)LA (2D)4.0 (1.9-4.0cm)Aortic Root3.6 (2.0-3.7cm) LVDs3.4 (2.5-4.0cm)LA (MM) (1.9-4.0cm)Aortic Cusp Exc1.9 (1.5-2.0cm) EF (%) 50.0 (55-70%)Rt. Atrium (1.9-4.0cm)Asc. Aorta cm IVSd1.0 (0.7-1.1cm)RV (D) (1.8-2.4cm) PWd0.8 (0.7-1.1cm) Mitral Valve MitralMitral Stenosis E wave1.10m/sMV Mean GR.mmHg A wave1.40m/sMV Peak GR.mmHg E/A ratio0.82D MVAcm2 Aortic Valve Aortic ValveAortic Stenosis V13.40m/Talha Mean GR.24mmHg V23.14m/Talha Peak GR.45mmHg LVOT Diameter2.1 (1.8-2.4cm)Doppler AVA3.75cm2 Other Information Quality : Technically LimitedRhythm : Technically limited study due to body habitus. Conclusion Technically good study. Sinus rhythm. Off axis views. Chamber sizes appear to be within normal limits. Valves appear to be within normal limits. EF of 60% with normal RV function. Mild TR. No pericardial effusion masses or vegetations.
[2025-02-24] MEDS: PANTOPRAZOLE 40 MG/10 ML VIAL INJ IV ONE (18:40)
[2025-02-24] MEDS: POTASSIUM CHLORIDE 20 MEQ, LIDOCAINE 1% (LOCAL ANESTH.) 2 ML in SODIUM CHL 0.9% 100 ML IV ONE (18:41)
[2025-02-24] MEDS ORDERED: PREG150C63 PO (20:26)
[2025-02-24] MEDS ORDERED: BUSP10TA31 PO (20:26)
[2025-02-24] MEDS ORDERED: EMPA1TAB PO (20:26)
[2025-02-24] MEDS ORDERED: ESCI1TAB37 PO (20:26)
[2025-02-24] MEDS ORDERED: TOPI25TA84 PO (20:26)
[2025-02-24] MEDS ORDERED: BACL20TA PO (20:26)
[2025-02-24] MEDS ORDERED: LAMO100T44 PO (20:26)
[2025-02-24] MEDS: cefTRIAXone 1GM/50ML D5W 50 ML IV SCH (20:55)
[2025-02-24] MEDS: PIPERACILLIN-TAZOB 3.375GM 100 ML IV SCH (21:25)
[2025-02-24] MEDS: BACLOFEN 10 MG TAB PO SCH (21:26)
[2025-02-24] MEDS: COLCHICINE 0.6 MG CAP PO SCH (21:26)
[2025-02-24] MEDS: PREGABALIN CAPSULE 75 MG CAP PO SCH (21:26)
[2025-02-24] MEDS: TOPIRAMATE 25 MG TAB PO SCH (21:26)
[2025-02-24] MEDS: lamoTRIgine 100 MG TAB PO SCH (21:27)
[2025-02-24 22:19] LABS: INR 0.98 (0.9-1.15); Partial Thromboplastin Time 27.1 SEC (24.5-34.5); Prothrombin Time 10.4 sec (9.3-11.8)
[2025-02-25] VITALS (8 sets, daily range): BP systolic 92–110; BP diastolic 57–72; PULSE 78–96; RESP 18–20; TEMP 97.1–98.4; O2SAT 92–96
[2025-02-25 07:26] LABS: Basophils # (auto) 0 10 ^3/uL (0-0.2); Basophils % (auto) 0.3 % (0.0-2.0); Eosinophils # (auto) 0 10 ^3/uL (0-0.8); Eosinophils % (auto) 0.1 % (0.0-7.0); Hematocrit 46.6 % (36.0-46.0); Hemoglobin 15.8 g/dL (12.2-16.2); Lymphocytes # (auto) 3.2 10 ^3/uL (0.4-5.4); Lymphocytes % (auto) 27.6 % (10.0-50.0); Mean Corpuscular Hemoglobin 31.7 pg (28.0-32.0); Mean Corpuscular Hgb Conc. 33.9 g/dL (32.0-36.0); Mean Corpuscular Volume 93.6 fL (80.0-100.0); Monocytes # (auto) 0.9 10 ^3/uL (0-1.3); Monocytes % (auto) 7.8 % (0.0-12.0); Neutrophils # (auto) 7.4 10 ^3/uL (1.6-8.6); Neutrophils % (auto) 64.2 % (37.0-80.0); Nucleated Red Blood Cells % 0.1 %; Platelet Count (auto) 250 10^3/uL (140-450); Red Blood Cells 4.97 10^6/uL (4.0-5.20); White Blood Cell 11.6 10^3/uL (4.4-10.8)
[2025-02-25] MEDS: PANTOPRAZOLE 40 MG/10 ML VIAL INJ IV SCH (08:58)
[2025-02-25] MEDS: CITALOPRAM HYDROBR 20 MG TAB PO SCH (08:59)
[2025-02-25] MEDS: IBUPROFEN 600 MG TAB PO SCH (09:03)
[2025-02-25] MEDS: EMPAGLIFLOZIN 10 MG TAB PO SCH (09:04)
[2025-02-25] MEDS: busPIRone HCL 10 MG TAB PO SCH (09:16)
[2025-02-25] MEDS ORDERED: PANTOPRAZOLE 40 MG/10 ML VIAL INJ IV SCH (10:00)
[2025-02-25] MEDS ORDERED: COLC1CAP PO (11:04)
--- NOTE | 2025-02-25 11:13 | DVHDS2 ---
Discharge Summary Date of Admission Feb 23, 2025 at 19:33 Date of Discharge: Feb 25, 2025 Admitting Diagnosis Acute coronary syndrome Labs/Diagnostic Data: Laboratory Results Test 02/25/25 05:54 02/24/25 20:50 02/24/25 14:05 02/24/25 04:39 White Blood Count 11.6 10^3/uL (4.4-10.8) Red Blood Count 4.97 10^6/uL (4.0-5.20) Hemoglobin 15.8 g/dL (12.2-16.2) Hematocrit 46.6 % (36.0-46.0) Mean Corpuscular Volume 93.6 fL (80.0-100.0) Mean Corpuscular Hemoglobin 31.7 pg (28.0-32.0) Mean Corpuscular Hemoglobin Concent 33.9 g/dL (32.0-36.0) Red Cell Distribution Width 14.0 % (11.8-14.3) Platelet Count 250 10^3/uL (140-450) Mean Platelet Volume 8.8 fL (6.9-10.8) Neutrophils (%) (Auto) 64.2 % (37.0-80.0) Lymphocytes (%) (Auto) 27.6 % (10.0-50.0) Monocytes (%) (Auto) 7.8 % (0.0-12.0) Eosinophils (%) (Auto) 0.1 % (0.0-7.0) Basophils (%) (Auto) 0.3 % (0.0-2.0) Neutrophils # (Auto) 7.4 10 ^3/uL (1.6-8.6) Lymphocytes # (Auto) 3.2 10 ^3/uL (0.4-5.4) Monocytes # (Auto) 0.9 10 ^3/uL (0-1.3) Eosinophils # (Auto) 0 10 ^3/uL (0-0.8) Basophils # (Auto) 0 10 ^3/uL (0-0.2) Nucleated Red Blood Cells 0.1 % Prothrombin Time 10.4 sec (9.3-11.8) Prothrombin Time INR 0.98 (0.9-1.15) Activated Partial Thromboplast Time 27.1 SEC (24.5-34.5) Troponin I High Sensitivity 3372 ng/L (</=34) Sodium Level 141 mmol/L (136-145) Potassium Level 3.4 mmol/L (3.5-5.1) Chloride Level 108 mmol/L (98-107) Carbon Dioxide Level 21 mmol/L (20-31) Anion Gap 12 (5-15) Blood Urea Nitrogen 9 mg/dL (9-23) Creatinine 0.61 mg/dL (0.550-1.02) Glomerular Filtration Rate Calc 104 mL/min (>90) BUN/Creatinine Ratio 14.8 (10.0-20.0) Serum Glucose 147 mg/dL (74-106) Calcium Level 9.1 mg/dL (8.7-10.4) Total Bilirubin 0.6 mg/dL (0.2-1.0) Aspartate Amino Transferase (AST) 19 U/L (<34) Alanine Aminotransferase (ALT) 10 U/L (7-40) Alkaline Phosphatase 59 U/L (46-116) Total Protein 7.2 g/dL (5.7-8.2) Albumin 5.0 g/dL (3.2-4.8) Test 02/23/25 22:50 02/23/25 22:15 02/23/25 18:03 Urine Color Yellow (Yellow) Urine Clarity Clear (Clear) Urine pH 6.0 (5.0-9.0) Urine Specific [place] 1.023 (1.001-1.035) Urine Protein Trace (Negative) Urine Ketones 2+ (Negative) Urine Blood 1+ /uL (Negative) Urine Nitrite Negative (Negative) Urine Bilirubin Negative (Negative) Urine Urobilinogen Normal mg/dL (Negative) Urine Leukocyte Esterase Trace /uL (Negative) Urine RBC 23 /hpf (0 - 4) Urine Microscopic WBC 2 /HPF (0-5) Urine Squamous Epithelial Cells Few /hpf (<5) Urine Bacteria None seen /hpf (None Seen) Urine Mucus Few (None Seen) Urine Glucose Trace mg/dL (Normal) POC Glucose 135 mg/dl (70-106) D-Dimer, Quantitative 0.21 mg/L FEU (0.0-0.49) Hemoglobin A1c 5.2 % A1C (<5.7) Other Laboratory Tests 02/25/25 05:54 02/24/25 04:39 Brief Hx & Hospital Course: History of Present Illness The patient is a 55-year-old female morbidly obese with past medical history of DM, HIV, hyperlipidemia, hypertension, and depression who presented to [facility] ED with complaint of chest pain. Patient reports symptoms progressively get worse with substernal chest pain, radiating to her back, admits symptoms started after smoking marijuana and taking libido enhancing pills, getting worse that prompted this visit. Patient was seen and evaluated in the ED, laboratory data shows WBC 11.5, platelets 278, sodium 141, potassium 3.7, BUN 10, creatinine 0.83, glucose 115, calcium 10.7, troponin 92, albumin 5.4, blood pressure 134/94, heart rate 84, temperature 98.9 F, O2 saturation 95% on room air. Chest x-ray show acute cardiopulmonary disease. Please see medication orders section in the computer. On my assessment, patient denies chest pain at this moment, no headache, no dizziness, no diaphoresis, no shortness of breath, no nausea, no vomiting, no fever, no chills. Patient was admitted for further evaluation and medical management. Course of hospitalization: Patient was found to have persistent chest pressure, nausea, diaphoresis upon my initial assessment. I added on troponin levels to a.m. labs which were significantly elevated. Repeat EKG was performed which was without any ST changes. Discussion was made with Cardiology LIBRARY CIRCULATION ASSISTANT, Mr. Craig, who then discussed the case with on-call refund specialist with the patient undergoing left heart catheterization. Patient had no noted CAD. Diagnose pericarditis was given to the patient. Patient states that she is currently taken Motrin 800 mg p.o. b.i.d.. Patient will be continued on this medication for ongoing chest pain in addition to colchicine 0.6 mg p.o. twice a day for a total of three months. She is instructed to follow up with the refund specialist at [facility] [place] as well as her PCP at the same campus. Patient will continue all previous home medications. All questions answered Physical examination General: Alert and Oriented x3. No acute distress. Well-nourished. Eyes: EOMI. Anicteric. HENT: Moist mucous membranes. Lungs: Clear to auscultation bilaterally. No accessory muscle use. Cardiovascular: Regular rate and rhythm. No murmur. No JVD. Abdomen: Soft, non-tender and non-distended. No palpable masses. Extremities: No edema. Non-tender. Skin: No rashes or lesions. Warm. Neurologic: No focal neurological deficits. CN II-XII grossly intact, but not individually tested. Psychiatric: Cooperative. Appropriate mood and affect. Total time spent with patient discussing and formulating plan of care: 35 minutes. This medical document was created using an electronic medical record system with [employer] dictation system. Although this document has been carefully reviewed, there may still be some phonetic and typographical errors. These areas are purely typographical due to imperfections of the software programs, and do not reflect any compromise in the patient's medical care. Consults/Reason for consult Cardiology: Acute coronary syndrome Operations or Procedures 02/24/2025: Left heart catheterization Condition at Discharge: Good Final Diagnosis/Problems List Pericarditis Secondary diagnosis: -NSTEMI type 1 with unstable angina -primary hypertension -depression -diabetes mellitus -dyslipidemia Obesity Discharge Disposition: Home Discharge Instruct/Medications Follow Up/Referral: Follow up with PCP and refund specialist at [facility] [place] Medications: Continue all previous home medications Colchicine 0.6 mg p.o. b.i.d. x3 months. Patient will also continue Motrin 800 mg p.o. b.i.d. 36 Discharge Statement: "Patient was advised to return to the ER or call 911 if any headaches, dizziness, shortness of breath, chest pain, abdominal pain, bleeding, fevers, or worsening of medical condition. Patient was counseled about treatment plan, medications, possible side effects, patientverbalized understanding. All questions were answered to the best of my ability. This discharge took greater then 30 minutes in planning, reviewing documentation, counseling the patient, and discussing with other team members." ASSESSMENT ASSESSMENT Assessment Normal coronaries, possible pericarditis. Date of Service: Feb 25, 2025 Billing Provider: SHERIN CASTAÑEDA NP Common Visit Codes: 88888-XUP/OBS DISCH DAY >30min SHERIN CASTAÑEDA NP Feb 25, 2025 11:13
[2025-02-25] MEDS ORDERED: PRAM3TAB PO (22:54)
[2025-02-26 01:00] VITALS: BP 104/50; PULSE 75; RESP 17; TEMP 97.3; O2SAT 92
[2025-02-26 05:00] VITALS: BP 103/50; PULSE 60; RESP 17; TEMP 98.3; O2SAT 94
[2025-02-26 08:00] VITALS: PULSE 74; RESP 18; O2SAT 96
[2025-02-26 09:00] VITALS: BP 108/75; PULSE 82; RESP 21; TEMP 97.5; O2SAT 95
--- NOTE | 2025-02-26 10:16 | DVHPN2 ---
Subjective No symptoms reported today. Reviewed: Care Plan, H&P, Labs, Medications Changes from previous H/P or p: No Changes General: Per HPI Eyes: No Pain, No Vision change, No Conjunctivae inflammation, No Eyelid inflammation, No Other, No Redness ENT: No Ear pain, No Ear discharge, No Nose pain, No Nose discharge, No Nose congestion, No Mouth pain, No Mouth swelling, No Throat pain, No Throat swelling, No Other Cardiovascular: Chest Pain; No Palpitations, No Orthopnea, No Paroxysmal Noc. Dyspnea, No Edema, No Lt Headedness, No Other Respiratory: No Cough, No Dry, No Shortness of breath, No SOB with excertion, No Wheezing, No Hemoptysis, No Pleuritic Pain, No Sputum, No Other Gastrointestinal: No Nausea, No Vomiting, No Abdominal Pain, No Diarrhea, No Constipation, No Melena, No Hematochezia, No Other Genitourinary: No Dysuria, No Frequency, No Incontinence, No Hematuria, No Retention, No Other Musculoskeletal: No other, No neck pain, No shoulder pain, No arm pain, No back pain, No hand pain, No leg pain, No foot pain Skin: No Rash, No Lesions, No Jaundice, No Bruising, No Other Objective Vitals Vital Signs Date Time Temp Pulse Resp B/P (MAP) Pulse Ox O2 Delivery O2 Flow Rate FiO2 02/26/25 09:00 97.5 82 21 108/75 (86) 95 97.5 02/26/25 08:00 Room Air* 0 21 Intake/Output Intake and Output 02/26/25 07:00 Intake Total 3550 ml Balance 3550 ml Intake Oral 3200 ml IV Total 350 ml # Voids 6 General Appearance: Alert, Oriented X3, Cooperative, moderate distress HEENT: Atraumatic, PERRLA Lungs: Clear to auscultation, Normal air movement Cardiovascular: Normal S1, Normal S2 Abdomen: Normal bowel sounds, Soft, No tenderness, No hepatospenomegaly Musculoskeletal: Normal sensory function, Normal motor function Neuro: Normal gait, Normal speech Skin: Dry, Intact Psych/Mental Status: Mental status NL, Other (Patient anxious) Medications Current Medications Medications Dose Ordered Sig/Cherise Route Start Time Stop Time Status Last Admin Dose Admin Aspirin 81 mg DAILY PO 02/24/25 10:00 02/25/25 08:59 81 MG Atorvastatin Calcium 20 mg HS PO 02/23/25 22:00 02/25/25 21:37 20 MG Amlodipine Besylate 5 mg DAILY PO 02/24/25 10:00 02/25/25 09:04 5 MG Hydralazine HCl 10 mg Q6HP PRN IV 02/23/25 19:45 Buspirone HCl 10 mg Q12HR PO 02/23/25 22:00 02/25/25 21:37 10 MG Ceftriaxone Sodium 50 ml @ 100 mls/hr Q24H IV 02/24/25 21:00 02/25/25 21:36 100 MLS/HR Sodium Chloride 10 ml Q8HR IV 02/23/25 22:00 02/26/25 05:02 10 ML Acetaminophen/ Hydrocodone Bitart 1 tab Q4HP PRN PO 02/23/25 19:45 02/26/25 02:45 1 TAB Ondansetron HCl 4 mg Q4HP PRN IV 02/23/25 19:45 02/24/25 12:24 4 MG Docusate Sodium 100 mg BIDPRN PRN PO 02/23/25 19:45 Acetaminophen 650 mg Q6HP PRN PO 02/23/25 19:45 Nitroglycerin 0.4 mg Q5MINP PRN SL 02/23/25 19:45 Morphine Sulfate 2 mg Q30M PRN IV 02/23/25 19:45 Clonazepam 1 mg Q8HP PRN PO 02/24/25 04:00 02/26/25 10:13 1 MG Colchicine 0.6 mg Q12HR PO 02/24/25 22:00 02/25/25 21:37 0.6 MG Pantoprazole Sodium 40 mg DAILY IV 02/25/25 10:00 02/25/25 08:58 40 MG Ibuprofen 600 mg BID PO 02/25/25 10:00 02/25/25 21:37 600 MG Buspirone HCl 10 mg DAILY PO 02/25/25 10:00 02/25/25 09:16 10 MG Empaglifozin 10 mg DAILY PO 02/25/25 10:00 02/25/25 09:04 10 MG Lamotrigine 100 mg BID PO 02/24/25 22:00 02/25/25 21:37 100 MG Topiramate 25 mg BID PO 02/24/25 22:00 02/25/25 21:38 25 MG Baclofen 20 mg BID PO 02/24/25 22:00 02/25/25 21:37 20 MG Citalopram Hydrobromide 40 mg DAILY PO 02/25/25 10:00 Pregabalin 150 mg BID PO 02/24/25 22:00 02/25/25 21:38 150 MG Piperacillin Sod/ Tazobactam Sod 100 ml @ 25 mls/hr Q8HR IV 02/24/25 22:00 02/26/25 05:03 25 MLS/HR Laboratory Results Laboratory Tests 02/24/25 04:39 02/25/25 05:54 Urinalysis Test 02/23/25 22:50 Urine Color Yellow (Yellow) Urine Clarity Clear (Clear) Urine pH 6.0 (5.0-9.0) Urine Specific [place] 1.023 (1.001-1.035) Urine Protein Trace (Negative) H Urine Ketones 2+ (Negative) H Urine Blood 1+ /uL (Negative) H Urine Nitrite Negative (Negative) Urine Bilirubin Negative (Negative) Urine Urobilinogen Normal mg/dL (Negative) Urine Leukocyte Esterase Trace /uL (Negative) Urine RBC 23 /hpf (0 - 4) Urine Microscopic WBC 2 /HPF (0-5) Urine Squamous Epithelial Cells Few /hpf (<5) Urine Bacteria None seen /hpf (None Seen) Urine Mucus Few (None Seen) Urine Glucose Trace mg/dL (Normal) Microbiology Microbiology Date/Time Source Procedure Growth Status 02/24/25 21:05 Blood Blood Culture - Preliminary NO GROWTH AFTER 24 HOURS OF INCUBATION. Resulted Labs and/or images reviewed: Labs reviewed by me, Image(s) reviewed by me Assessment/Plan Assessment/Plan Impression: -NSTEMI type 1 with unstable angina -primary hypertension -depression -diabetes mellitus -dyslipidemia Obesity Plan: Discharge planning discussed with the patient yesterday. Patient to be discharged today. This medical document was created using an electronic medical record system with [employer] system. Although this document has been carefully reviewed, there may still be some phonetic and typographical errors. These areas are purely typographical due to imperfections of the software programs, and do not reflect any compromise in the patient's medical care. Plan discussed with: Patient, Other (RN) My Orders Orders - SHERIN CASTAÑEDA TELEPHONE INTERCEPTOR OPERATOR Procedure Category Date Status Time Discharge DISCHARGE 02/26/25 Transmitted 08:58 Date of Service: Feb 26, 2025 Billing Provider: SHERIN CASTAÑEDA NP Common Visit Codes: [id number] INP/OBS CARE(MOD) SHERIN CASTAÑEDA NP Feb 26, 2025 10:16
--- NOTE | 2025-02-26 12:42 | ECG ---
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
== END 2025-02-26 10:25 | disposition home or self-care (01) | DRG 281 ==
LOC: EDBD 17:35 → ER 17:35 → OVERFLOW 19:33 → TELE-CENTR 02-24 13:22
PROVIDERS: ADMIT Nurse Practitioner Acute Care; ATTEND Nurse Practitioner Acute Care
PROC: 4A023N7 Measurement of Cardiac Sampling and Pressure, Left Heart, Percutaneous Approach (ICD-10-PCS; principal; 2025-02-24)
PROC: B211YZZ Fluoroscopy of Multiple Coronary Arteries using Other Contrast (ICD-10-PCS; 2025-02-24)
PROC: B215YZZ Fluoroscopy of Left Heart using Other Contrast (ICD-10-PCS; 2025-02-24)
DX: I21.4 Non-ST elevation (NSTEMI) myocardial infarction (principal); I31.9 Disease of pericardium, unspecified; I50.32 Chronic diastolic (congestive) heart failure; E78.5 Hyperlipidemia, unspecified; I11.0 Hypertensive heart disease with heart failure; E11.9 Type 2 diabetes mellitus without complications; F32.A Depression, unspecified; Z68.37 Body mass index [BMI] 37.0-37.9, adult; E66.01 Morbid (severe) obesity due to excess calories; F17.210 Nicotine dependence, cigarettes, uncomplicated; Z83.3 Family history of diabetes mellitus; Z88.8 Allergy status to other drugs, medicaments and biological substances; Z90.710 Acquired absence of both cervix and uterus
CPT/HCPCS: 36415; 71045; 80053; 81001; 82962; 83036; 84484; 85025; 85379; 85610; 85730; 87040; 87086; 93005; 93306; 93458; 96365; 96375; 99152; 99291; G0378; J1885; J2003; J2250; J2405; J2470; J2543; J3490; Q0162; Q9967

== ENCOUNTER 2025-03-22 07:19 | Inpatient (IN) | payer OTHER, BC ==
[~2025-03-22] VITALS: Ht 167.6 cm; Wt 91.8 kg
[~2025-03-22 07:19] MED LIST: BACL20TA PO; BUSP10TA31 PO; COLC1CAP PO; EMPA1TAB PO; ESCI1TAB37 PO; LAMO100T44 PO; PRAM3TAB PO; PREG150C63 PO; TOPI25TA84 PO
--- NOTE | 2025-03-22 08:13 | ED.PDOC ---
History of Present Illness HPI Comments 55-year-old female presents the ER with prior medical history of HIV, hypertension, high lipids, fibromyalgia: Surgical history of hysterectomy, tonsillectomy of chest pain. Patient reports on having had sternal chest pain with abdominal pain, back pain, nausea, vomiting, diarrhea since 0400 this morning. Patient notes that she was here two weeks ago and was diagnosed with pericarditis. Denies chills, fever, SOB. No other associated symptoms, modifiers, recent injuries or sick contacts present at this time. Chief Complaint: Chest Pain Time Seen by MD: 08:05 Primary Care Provider: UNKNOWN Reviewed Notes: Nurses Notes, Medications, Allergies Allergies: Coded Allergies: Sulfa Antibiotics (Verified Allergy, Unknown, 01/22/21) Varenicline (Verified Allergy, Unknown, SUICIDAL, 02/23/25) Trazodone (Verified Adverse Reaction, Unknown, NIGHTMARE, 02/23/25) Home Meds Active Scripts Colchicine (Colchicine) 0.6 Mg Cap, 0.6 MG PO BID for 60 Days, #120 CAP Prov:SHERIN CASTAÑEDA ASSOCIATE FIELD SERVICE ENGINEER 02/25/25 Reported Medications Pramipexole Dihydrochloride (Mirapex Er) 3 Mg Tab, 1 MG PO DAILY for Cramps , TAB 02/25/25 Baclofen (Baclofen) 20 Mg Tab, 1 TAB PO BID 02/24/25 Topiramate (Topiramate) 25 Mg Tab, 1 TAB PO BID 02/24/25 Pregabalin (Pregabalin) 150 Mg Cap, 1 CAP PO BID 02/24/25 Lamotrigine (Lamotrigine) 100 Mg Tab, 1 TAB PO BID 02/24/25 Escitalopram Oxalate (ESCITALOPRAM OXALATE) 20 Mg Tab, 1 TAB PO DAILY 02/24/25 Buspirone HCl (Buspirone HCl) 10 Mg Tab, TAB PO 02/24/25 Empagliflozin (Jardiance) 10 Mg Tab, 1 TAB PO DAILY 02/24/25 Information Source: Patient Mode of Arrival: EMS Severity: Moderate Timing: Hours Duration: Since onset, Hours Prehospital treatment: None Past Medical History PAST MEDICAL HISTORY: High Lipids, HIV, HTN Past Medical History (Other): Fibromyalgia Surgical History: Hysterectomy, Tonsillectomy GANG HEAD SAW OPERATOR History: Denies all GANG HEAD SAW OPERATOR Hx Family History Family History: Reviewed,noncontributory to illness, Unknown, Family hx of heart leta Social History Smoker: Non-Smoker Alcohol: Denies ETOH Use Drugs: Denies Drug Use Lives In: Home Constitutional: denies: chills, diaphoresis, fatigue, fever, malaise, sweats, weakness, others EENTM: denies: blurred vision, double vision, ear bleeding, ear discharge, ear drainage, ear pain, ear ringing, eye pain, eye redness, hearing loss, mouth pain, mouth swelling, nasal discharge, nose bleeding, nose congestion, nose pain, photophobia, tearing, throat pain, throat swelling, voice changes, others Respiratory: denies: cough, hemoptysis, orthopnea, SOB at rest, shortness of breath, SOB with excertion, stridor, wheezing, others Cardiovascular: reports: chest pain; denies: dizzy spells, diaphoresis, Dyspnea on exertion, edema, irregular heart beat, left arm pain, lightheadedness, palpitations, PND, syncope, others Gastrointestinal: reports: abdominal pain, diarrhea, nausea, vomiting; denies: abdomen distended, blood streaked bowels, constipated, dysphagia, difficulty swallowing, hematemesis, melena, poor appetite, poor fluid intake, rectal bleeding, rectal pain, others Genitourinary: denies: abnormal vagina bleeding, burning, dyspareunia, dysuria, flank pain, frequency, hematuria, incontinence, pain, , vagina discharge, urgency, others Neurological: denies: dizziness, fainting, headache, left sided numbness, left sided weakness, numbness, paresthesia, pre-existing deficit, right sided numbness, right sided weakness, seizure, speech problems, tingling, tremors, weakness, others Musculoskeletal: reports: back pain; denies: gout, joint pain, joint swelling, muscle pain, muscle stiffness, neck pain, others Integumetry: denies: bruises, change in color, change in hair/nails, dryness, laceration, lesions, lumps, rash, wounds, others Allergic/Immunocompromised: denies: Difficulty Healing, Frequent Infections, Hives, Itching, others Hematologic/Lymphatic: denies: anemia, blood clots, easy bleeding, easy bruising, swollen glands, others Endocrine: denies: excessive hunger, excessive sweating, excessive thirst, excessive urination, flushing, intolerance to cold, intolerance to heat, unexplained weight gain, unexplained weight loss, others Psychiatric: denies: anxiety, bipolar disorder, depression, hopeless, panic disorder, schizophrenia, sleepless, suicidal, others All Other Systems: Reviewed and Negative Physical Exam General Appearance: No Apparent Distress, Normal HEENT: Normal ENT Inspection, Pharynx Normal, TMs Normal Neck: Full Range of Motion, Non-Tender, Normal, Normal Inspection Respiratory: Chest Non-Tender, Lungs Clear, No Accessory Muscle Use, No Respiratory Distress, Normal Breath Sounds Cardiovascular: No Edema, No JVD, No Murmur, No Gallop, Normal Peripheral Pulses, Regular Rate/Rhythm Breast Exam: Deferred Gastrointestinal: No Organomegaly, Non Tender, No Pulsatile Mass, Normal Bowel Sounds, Soft Genitalia: Deferred Pelvic: Deferred Rectal: Deferred Extremities: No calf tenderness, Normal capillary refill, Normal inspection, Normal range of motion, Non-tender, No pedal edema Musculoskeletal : Apperance: Normal Neurologic: Alert, kitchen cleaner II-XII nml as Tested, No Motor Deficits, Normal Affect, Normal Mood, No Sensory Deficits Cerebellar Function: Normal Reflexes: Normal Skin: Dry, Normal Color, Warm Lymphatic: No Adenopathy Was a procedure done? Was a procedure done?: No Differential Dx Considerations may include: ACS, CVA, viral syndrome, electrolyte abnormality, infectious etiology, fibromyalgia X-Ray, Labs, Meds, VS Vital Signs Date Time Temp Pulse Resp B/P (MAP) Pulse Ox O2 Delivery O2 Flow Rate FiO2 03/22/25 09:33 68 13 98 Nasal Cannula* 2 28 03/22/25 08:30 98.0 75 11 140/85 (103) 99 98.0 03/22/25 08:21 77 03/22/25 07:23 97.6 89 22 134/78 (96) 94 97.6 03/22/25 07:20 71 Lab Test 03/22/25 09:07 03/22/25 08:10 Range/Units Troponin I High Sensitivity 3 L 3 L </=34 ng/L White Blood Count 6.0 4.4-10.8 10^3/uL Red Blood Count 5.11 4.0-5.20 10^6/uL Hemoglobin 16.4 H 12.2-16.2 g/dL Hematocrit 48.5 H 36.0-46.0 % Mean Corpuscular Volume 94.9 80.0-100.0 fL Mean Corpuscular Hemoglobin 32.0 28.0-32.0 pg Mean Corpuscular Hemoglobin Concent 33.7 32.0-36.0 g/dL Red Cell Distribution Width 13.6 11.8-14.3 % Platelet Count 250 140-450 10^3/uL Mean Platelet Volume 8.4 6.9-10.8 fL Neutrophils (%) (Auto) 69.7 37.0-80.0 % Lymphocytes (%) (Auto) 24.7 10.0-50.0 % Monocytes (%) (Auto) 4.6 0.0-12.0 % Eosinophils (%) (Auto) 0.7 0.0-7.0 % Basophils (%) (Auto) 0.3 0.0-2.0 % Neutrophils # (Auto) 4.2 1.6-8.6 10 ^3/uL Lymphocytes # (Auto) 1.5 0.4-5.4 10 ^3/uL Monocytes # (Auto) 0.3 0-1.3 10 ^3/uL Eosinophils # (Auto) 0 0-0.8 10 ^3/uL Basophils # (Auto) 0 0-0.2 10 ^3/uL Nucleated Red Blood Cells 0.2 % Sodium Level 142 136-145 mmol/L Potassium Level 3.2 L 3.5-5.1 mmol/L Chloride Level 108 H 98-107 mmol/L Carbon Dioxide Level 27 20-31 mmol/L Anion Gap 7 5-15 Blood Urea Nitrogen 11 9-23 mg/dL Creatinine 0.80 0.550-1.02 mg/dL Glomerular Filtration Rate Calc 86 >90 mL/min BUN/Creatinine Ratio 13.8 10.0-20.0 Serum Glucose 127 H 74-106 mg/dL Calcium Level 9.3 8.7-10.4 mg/dL B-Type Natriuretic Peptide 9.57 0-100 pg/mL Time of 1ST Reevaluation: 08:35 Reevaluation 1ST: Unchanged Patient Education/Counseling: Diagnosis, Treatment, Prognosis Family Education/Counseling: No Family Present SEPSIS Sepsis Screen Date sepsis recognized/suspect: Mar 22, 2025 Time Sepsis recognized/suspect: 719 Recent Procedure: No On Antibiotic Therapy: No Respiratory Rate >20: Yes Heart Rate >90: No Temp<36 C (96.8 F) or >38.3 C: No SBP <90 or MAP <65 mmHG: No New Acute Mental Status Change: No Is the patient on CPAP, BIPAP,: No Physician Orders Electrocardigram (03/22/25 07:39) Electrocardigram (03/22/25 08:39) Electrocardigram (03/22/25 10:39) Chest Portable (03/22/25 07:50) Troponin-I Hs (03/22/25 10:50) Vital Signs Date Time Temp Pulse Resp B/P (MAP) Pulse Ox O2 Delivery O2 Flow Rate FiO2 03/22/25 09:33 68 13 98 Nasal Cannula* 2 28 03/22/25 08:30 98.0 75 11 140/85 (103) 99 98.0 03/22/25 08:21 77 03/22/25 07:23 97.6 89 22 134/78 (96) 94 97.6 03/22/25 07:20 71 Laboratory Tests Test 03/22/25 08:10 White Blood Count 6.0 10^3/uL (4.4-10.8) Departure 1 Departure Time of Disposition: 10:45 (Patient presented with chest pain that was concerning for possible STEMI, ACS, PE, Pneumonia, Muscle Strain, COPD, Dissection. Data: 1. I ordered and reviewed the result of at least 3 labs including a CBC, BMP, and Troponin. 2. I independently interpreted the following tests: EKG which shows sinus arrhythmia and Chest X-ray which shows benign chest.Risk:This patient has a high risk of morbidity due to further diagnostic testing or treatment and may suffer from an acute cardiac or respiratory disorder. Workup reveals concern for ACS and patient should be admitted for further workup and possible expert consultation. ) Impression: Primary Impression: Acute chest pain Additional Impression: Shortness of breath Disposition: ADMITTED INPATIENT Admit to: Med Surg Condition: Serious Critical Care Note Critical Care Time?: Yes Critical care comment: Acute chest pain Authorized and Performed by: Jovanna Padilla MD Total critical care time: Approximately 39 minutes Due to a high probability of clinically significant, life threatening deterioration, the patient required my highest level of preparedness to intervene emergently and I personally spent this critical care time directly and personally managing the patient. This critical care time included obtaining a history; examining the patient; pulse oximetry; ordering and review of studies; arranging urgent treatment with development of a management plan; evaluation of patient's response to treatment; frequent reassessment; and, discussions with other providers. This critical care time was performed to assess and manage the high probability of imminent, life-threatening deterioration that could result in multi-organ failure. It was exclusive of separately billable procedures and treating other patients and teaching time. Please see my other sections and the rest of the note for further information on patient assessment and treatment. Stability Stability form required: No I personally scribed for JOVANNA PADILLA MD ([email or web address]) on 03/22/25 at 08:13. Electronically submitted by Leodan Pepper ([email or web address]). JOVANNA PADILAL MD Mar 22, 2025 08:13
[2025-03-22 08:29] LABS: Hematocrit 48.5 % (36.0-46.0); Hemoglobin 16.4 g/dL (12.2-16.2); Mean Corpuscular Hemoglobin 32.0 pg (28.0-32.0); Mean Corpuscular Volume 94.9 fL (80.0-100.0); Nucleated Red Blood Cells % 0.2 %
--- NOTE | 2025-03-22 08:30 | DVH ---
CHEST RADIOGRAPH Indication: chest pain Technique: Single frontal view of the chest was obtained COMPARISON: XY CHEST XRAY 1 VIEW on DOS: 02/23/25 FINDINGS: Lines and Tubes: None Lungs: Left basilar subsegmental atelectasis. Pleura: No effusion. No pneumothorax. Cardiomediastinal contours: Unremarkable Bones: Unremarkable IMPRESSION: Left basilar subsegmental atelectasis.
[2025-03-22 08:37] LABS: Sodium 142 mmol/L (136-145)
[2025-03-22 08:38] LABS: Anion Gap 7 (5-15); Carbon Dioxide 27 mmol/L (20-31)
[2025-03-22 08:39] LABS: Calcium 9.3 mg/dL (8.7-10.4)
[2025-03-22 08:43] LABS: BUN/Creatinine Ratio 13.8 (10.0-20.0); Blood Urea Nitrogen 11 mg/dL (9-23)
[2025-03-22 08:50] LABS: Chloride 108 mmol/L (98-107); Glucose 127 mg/dL (74-106); Potassium 3.2 mmol/L (3.5-5.1)
[2025-03-22 09:33] VITALS: PULSE 68; RESP 13; O2SAT 98
[2025-03-22] MEDS: ONDANSETRON HCL 4 MG/2 ML VIAL IV ONE (11:55)
[2025-03-22] MEDS ORDERED: ACETAMINOPHEN 325 MG TAB PO PRN (12:00)
[2025-03-22] MEDS ORDERED: NITROGLYCERIN 0.4 MG SL TAB SL PRN ×2 (12:00)
--- NOTE | 2025-03-22 12:08 | DVHHP2 ---
History of Present Illness Reason for Visit: Chest pain with nausea and vomiting History of Present Illness Ambreen Saunders is a 55-year-old female with past medical history of hyperlipidemia, hypertension, depression, hysterectomy, tonsillectomy, left heart catheterization, and marijuana use who presents to the ED with chest pain that started today. Patient states that the pain is 5/10 quivering like and intermittent in nature. She states that sleep makes it better and there are no triggering factors. She also reports that she had nausea and vomiting with dark contents, she does not remember the color. Patient states that she does not have diabetes or HIV as noted in prior reports. She also states that she does not use oxygen at home. Patient reports that she is compliant with her medications. She denies any shortness of breath, fever, chills, lightheadedness, weakness, dizziness, abdominal pain, diarrhea, urinary symptoms, recent travels, recent sick contacts, recent trauma or injury, or recent ingestion of spoiled food. Cardiovascular: HTN, hyperipidemia Psych: Depression Past Surgical History: Hysterectomy, Tonsillectomy Past Surgical History Left heart catheterization in February 2025 Family History: Other (Both parents ) Smoke: 2 packs per day ALCOHOL: none Drugs: Marijuana Lives: with Family Domestic Violence: Neg Review of Systems Cardiovascular: Chest Pain Gastrointestinal: Nausea, Vomiting Allergies: Coded Allergies: Sulfa Antibiotics (Verified Allergy, Unknown, 01/22/21) Varenicline (Verified Allergy, Unknown, SUICIDAL, 02/23/25) Trazodone (Verified Adverse Reaction, Unknown, NIGHTMARE, 02/23/25) Medications Current Medications Medications Dose Ordered Sig/Cherise Route Start Time Stop Time Status Last Admin Dose Admin Aspirin 81 mg DAILY PO 03/23/25 10:00 UNV Atorvastatin Calcium 40 mg HS PO 03/22/25 22:00 UNV Morphine Sulfate 2 mg Q30MP PRN IV 03/22/25 12:00 UNV Acetaminophen 650 mg Q6HP PRN PO 03/22/25 12:00 UNV Nitroglycerin 0.4 mg Q5MINP PRN SL 03/22/25 12:00 UNV Ondansetron HCl 4 mg Q4HP PRN IV 03/22/25 12:00 UNV Nitroglycerin 0.4 mg Q5MINP PRN SL 03/22/25 12:00 UNV Morphine Sulfate 2 mg Q30M PRN IV 03/22/25 12:00 UNV Exam Vital Signs Vital Signs Date Time Temp Pulse Resp B/P (MAP) Pulse Ox O2 Delivery O2 Flow Rate FiO2 03/22/25 10:30 85 19 137/95 (109) 95 03/22/25 09:33 Nasal Cannula* 2 28 03/22/25 08:30 98.0 98.0 General Appearance: Alert, Oriented X3, Cooperative, No acute distress HEENT: Atraumatic, PERRLA, EOMI, Mucous membr. moist/pink Respiratory: Clear to auscultation, Normal air movement Cardiovascular: Regular rate, Normal S1, Normal S2 Abdominal: Normal bowel sounds, Soft Extremities: Normal pulses Skin: No significant lesion Neuro: Normal speech, Strength at 5/5 X4 ext, Normal tone, Sensation intact Psych/Mental Status: Mental status NL, Other (Anxious) Labs/Xrays Labs Test 03/22/25 09:07 03/22/25 08:10 Range/Units Troponin I High Sensitivity 3 L </=34 ng/L White Blood Count 6.0 4.4-10.8 10^3/uL Red Blood Count 5.11 4.0-5.20 10^6/uL Hemoglobin 16.4 H 12.2-16.2 g/dL Hematocrit 48.5 H 36.0-46.0 % Mean Corpuscular Volume 94.9 80.0-100.0 fL Mean Corpuscular Hemoglobin 32.0 28.0-32.0 pg Mean Corpuscular Hemoglobin Concent 33.7 32.0-36.0 g/dL Red Cell Distribution Width 13.6 11.8-14.3 % Platelet Count 250 140-450 10^3/uL Mean Platelet Volume 8.4 6.9-10.8 fL Neutrophils (%) (Auto) 69.7 37.0-80.0 % Lymphocytes (%) (Auto) 24.7 10.0-50.0 % Monocytes (%) (Auto) 4.6 0.0-12.0 % Eosinophils (%) (Auto) 0.7 0.0-7.0 % Basophils (%) (Auto) 0.3 0.0-2.0 % Neutrophils # (Auto) 4.2 1.6-8.6 10 ^3/uL Lymphocytes # (Auto) 1.5 0.4-5.4 10 ^3/uL Monocytes # (Auto) 0.3 0-1.3 10 ^3/uL Eosinophils # (Auto) 0 0-0.8 10 ^3/uL Basophils # (Auto) 0 0-0.2 10 ^3/uL Nucleated Red Blood Cells 0.2 % Sodium Level 142 136-145 mmol/L Potassium Level 3.2 L 3.5-5.1 mmol/L Chloride Level 108 H 98-107 mmol/L Carbon Dioxide Level 27 20-31 mmol/L Anion Gap 7 5-15 Blood Urea Nitrogen 11 9-23 mg/dL Creatinine 0.80 0.550-1.02 mg/dL Glomerular Filtration Rate Calc 86 >90 mL/min BUN/Creatinine Ratio 13.8 10.0-20.0 Serum Glucose 127 H 74-106 mg/dL Calcium Level 9.3 8.7-10.4 mg/dL B-Type Natriuretic Peptide 9.57 0-100 pg/mL CHEST RADIOGRAPH Indication: chest pain Technique: Single frontal view of the chest was obtained COMPARISON: XY CHEST XRAY 1 VIEW on DOS: 02/23/25 FINDINGS: Lines and Tubes: None Lungs: Left basilar subsegmental atelectasis. Pleura: No effusion. No pneumothorax. Cardiomediastinal contours: Unremarkable Bones: Unremarkable IMPRESSION: Left basilar subsegmental atelectasis. SEPSIS Sepsis Screen Date sepsis recognized/suspect: Mar 22, 2025 Time Sepsis recognized/suspect: 09 Recent Procedure: No On Antibiotic Therapy: No Respiratory Rate >20: No Heart Rate >90: No Temp<36 C (96.8 F) or >38.3 C: No SBP <90 or MAP <65 mmHG: No New Acute Mental Status Change: No Is the patient on CPAP, BIPAP,: No Physician Orders Electrocardigram (03/22/25 07:39) Electrocardigram (03/22/25 08:39) Electrocardigram (03/22/25 10:39) Chest Portable (03/22/25 07:50) Ondansetron Hcl (Zofran) (03/22/25 12:00) Admit (03/22/25 11:51) Code Status (03/22/25 11:51) Vital Signs .PER UNIT PROTOCOL (03/22/25 11:51) Veterinary Assistant (03/22/25 11:51) Cardiac Diet-2gna,Lofat,Lochol (03/22/25 Lunch) Aspirin Tablet (03/23/25 10:00) Atorvastatin (Lipitor) (03/22/25 22:00) Morphine Sulfate Injection (03/22/25 12:00) Acetaminophen Tablet (Tylenol Tablet) (03/22/25 12:00) Complete Blood Count (03/23/25 04:00) Basic Metabolic Panel (03/23/25 04:00) Magnesium (03/23/25 04:00) Lipid Panel (03/23/25 04:00) Echo 2d Mode Cardiac Dop (03/22/25 11:51) Nitroglycerin Sublingual (Ntrostat Subli (03/22/25 12:00) Ondansetron Hcl (Zofran) (03/22/25 12:00) Electrocardigram (03/23/25 04:00) Cardiac Rehabilitation - Outpa (03/22/25 ) Nitroglycerin Sublingual (Ntrostat Subli (03/22/25 12:00) Morphine Sulfate Injection (03/22/25 12:00) Stat Ekg For Chest Pain (03/22/25 11:51) Notify Md Of Changes From Base (03/22/25 11:51) Mold Shifter For 24 Hours (03/22/25 11:51) Emergency Dysrhythmia Protocol (03/22/25 11:51) Rhythm Strips Once Every Shift (03/22/25 11:51) Oxygen By Nasal Cannula (03/22/25 11:51) Free T4 (Free Thyroxine) (03/22/25 11:51) Thyroid Stimulating Hormone (03/22/25 11:51) Urinalysis (03/22/25 11:51) Drug Screen (03/22/25 11:51) Potassium Er Tablet (Klor-Con Tablet) (03/22/25 12:00) Buspirone Hcl Tablet (Buspar Tablet) (03/23/25 10:00) Lamotrigine Tablet (Lamictal Tablet) (03/22/25 22:00) (Nf) Baclofen (03/22/25 22:00) (Nf) Colchicine (03/22/25 22:00) (Nf) Escitalopram Oxalate (03/23/25 10:00) (Nf) Pramipexole Dihydrochloride (Mirape (03/23/25 10:00) (Nf) Pregabalin (03/22/25 22:00) Vital Signs Date Time Temp Pulse Resp B/P (MAP) Pulse Ox O2 Delivery O2 Flow Rate FiO2 03/22/25 10:30 85 19 137/95 (109) 95 03/22/25 10:21 75 03/22/25 09:33 68 13 98 Nasal Cannula* 2 28 03/22/25 08:30 98.0 75 11 140/85 (103) 99 98.0 03/22/25 08:21 77 03/22/25 07:23 97.6 89 22 134/78 (96) 94 97.6 03/22/25 07:20 71 Laboratory Tests Test 03/22/25 08:10 White Blood Count 6.0 10^3/uL (4.4-10.8) Medications Medications Dose Ordered Sig/Cherise Route Start Time Stop Time Status Last Admin Dose Admin Ondansetron HCl 4 mg ONCE ONCE IV 03/22/25 12:00 03/22/25 12:01 03/22/25 11:55 4 MG Assessment/Plan Assessment/Plan Assessment Chest pain likely due to drug and tobacco use Acute hypoxic respiratory failure Morbid obesity Hypokalemia History of hyperlipidemia History of hypertension History of depression History of hysterectomy History of tonsillectomy History of left heart catheterization in February of 2025 with noted EF 60% Plan Admit to tele Supportive oxygen Replete lytes EKG Troponin noted BNP noted Chest x-ray noted Pain management Antiemetics Aspirin + statin Echo ordered TSH Lipid panel Free T4 UA UDS Hemoglobin A1c ordered Diet Home medications reconciled DVT prophylaxis-not indicated patient ambulating PUD prophylaxis-not indicated patient has no history of GERD or GI bleed Discussed plan of care with patient and nurse Counseled patient on lifestyle modifications, diet, and exercise Counseled patient on cessation of tobacco and marijuana use [id number] Behavior change smoking greater than 10 minutes about use of other options also gave option of nicotine patch [id number] Preventive counseling healthy eating habits, physical activity, and regular checkups Plan discussed with: Patient My Orders Orders - ABBEY CHOWDHURY PRACTICE SUPPORT SPECIALIST Procedure Category Date Status Time Ondansetron Hcl PHA 03/22/25 In Process (Zofran) 12:00 Admit ADMIT 03/22/25 Transmitted 11:51 Code Status CODE 03/22/25 Transmitted 11:51 Vital Signs ROCIO 03/22/25 In Process 11:51 Veterinary Assistant [facility] 03/22/25 In Process 11:51 Cardiac DIET 03/22/25 Transmitted Diet-2gna,Lofat,Lochol Lunch Aspirin Tablet PHA 03/23/25 Logged 10:00 Atorvastatin (Lipitor) PHA 03/22/25 Logged 22:00 Morphine Sulfate PHA 03/22/25 Logged Injection 12:00 Acetaminophen Tablet PHA 03/22/25 Logged (Tylenol Tablet) 12:00 Complete Blood Count LAB 03/23/25 Verified 04:00 Basic Metabolic Panel LAB 03/23/25 Verified 04:00 Magnesium LAB 03/23/25 Verified 04:00 Lipid Panel LAB 03/23/25 Verified 04:00 Echo 2d Mode Cardiac US 03/22/25 Logged DOP 11:51 Nitroglycerin [facility] 03/22/25 Logged Sublingual (Ntrostat 12:00 Ondansetron Hcl PHA 03/22/25 Logged (Zofran) 12:00 Electrocardigram EKG 03/23/25 Logged 04:00 Cardiac [facility] 03/22/25 In Process Rehabilitation - Outpa Nitroglycerin [facility] 03/22/25 Logged Sublingual (Ntrostat 12:00 Morphine Sulfate PHA 03/22/25 Logged Injection 12:00 Stat Ekg For Chest [facility] 03/22/25 In Process Pain 11:51 Notify Of Changes [facility] 03/22/25 In Process From Base 11:51 Mold Shifter For [facility] 03/22/25 In Process 24 Hours 11:51 Emergency Dysrhythmia [facility] 03/22/25 In Process Protocol 11:51 Rhythm Strips Once [facility] 03/22/25 In Process Every Shift 11:51 Oxygen By Nasal RT 03/22/25 Transmitted Cannula 11:51 Free T4 (Free LAB 03/22/25 Logged Thyroxine) 11:51 Thyroid Stimulating LAB 03/22/25 Logged Hormone 11:51 Urinalysis LAB 03/22/25 Logged 11:51 Drug Screen LAB 03/22/25 Logged 11:51 Potassium Er Tablet PHA 03/22/25 Logged (Klor-Con Tablet) 12:00 Buspirone Hcl Tablet PHA 03/23/25 Verified (Buspar Tablet) 10:00 Lamotrigine Tablet PHA 03/22/25 Verified (Lamictal Tablet) 22:00 (Nf) Baclofen PHA 03/22/25 Verified 22:00 (Nf) Colchicine PHA 03/22/25 Verified 22:00 (Nf) Escitalopram PHA 03/23/25 Verified Oxalate 10:00 (Nf) Pramipexole PHA 03/23/25 Verified Dihydrochloride 10:00 (Nf) Pregabalin PHA 03/22/25 Verified 22:00 Date of Service: Mar 22, 2025 Billing Provider: ABBEY CHOWDHURY Common Visit Codes: [id number] INP/OBS CARE (HIGH) Secondary Visit Codes: [id number] COUNSELING IND, [id number] CHNG SMOKING >10MIN ABBEY CHOWDHURY Mar 22, 2025 12:08
[2025-03-22] MEDS: POTASSIUM CHL 20 Meq TABLET PO ONE (14:03)
[2025-03-22 15:24] LABS: Urine Protein, UAD TRACE (Negative)
[2025-03-22 15:39] LABS: Amphetamine Screen, Urine Neg (NEGATIVE); Barbiturate Scree,Urine Neg (NEGATIVE); Benzodiazephine Screen, Urine Neg (NEGATIVE); Cannabinoid Screen, Urine Pos (NEGATIVE); Cocaine Screen, Urine Neg (NEGATIVE); Opiate Scree,Urine Neg (NEGATIVE); Phencyclidine Screen, Urine Neg (NEGATIVE)
[2025-03-22] MEDS: ONDANSETRON HCL 4 MG/2 ML VIAL IV PRN (17:06)
[2025-03-22] MEDS: MORPHINE SULFATE 4 MG/ML SYR/VIAL IV PRN (17:07)
--- NOTE | 2025-03-22 17:57 | DVHSR ---
APPROVED REPORT EXAM: Two-dimensional and M-mode echocardiogram with Doppler and color Doppler. Blood Pressure: 137/95 mmHg INDICATION Chest Pain RISK FACTORS Height: 66, Weight: 250 DIMENSIONS LVDd5.4 (3.8-5.7cm)LA (2D)4.6 (1.9-4.0cm)Aortic Root4.0 (2.0-3.7cm) LVDs3.2 (2.5-4.0cm)LA (MM) (1.9-4.0cm)Aortic Cusp Exc2.1 (1.5-2.0cm) EF (%) 70.0 (55-70%)Rt. Atrium5.0 (1.9-4.0cm)Asc. Aorta cm IVSd0.9 (0.7-1.1cm)RV (D) (1.8-2.4cm) PWd1.1 (0.7-1.1cm) Mitral Valve MitralMitral Stenosis E wave0.96m/sMV Mean GR.mmHg A wave1.23m/sMV Peak GR.162mmHg E/A ratio0.82D MVAcm2 DECEL [id number] 1/2 [place] Aortic Valve Aortic ValveAortic Stenosis V11.92m/Talha Mean GR.11mmHg V22.13m/Talha Peak GR.18mmHg LVOT Diameter1.8 (1.8-2.4cm)Doppler AVA2.29cm2 AI P 1/2 Imuu405.55ms Pulmonic Valve V21.19m/s Tricuspid Valve TR Velocity1.96m/s [id number] Conclusion Left ventricle: Left ventricle is normal-sized with normal systolic function. LVEF was around 70%. There was no gross wall motion abnormality. Diastolic function of left ventricle was normal. Right ventricle is mildly dilated with normal systolic function. Both atria were mildly dilated. Aortic valve: Aortic valve was trileaflet. There was mild aortic insufficiency. There was no aorti c stenosis. There was mild mitral regurgitation. There was trace tricuspid regurgitation. Pulmonar y valve was not well visualized. Right ventricular systolic pressure was normal at 19 mm Hg. There was no pericardial effusion. Aortic root was mildly dilated at 4.0 cm. There was no pericardial effusion.
[2025-03-22 19:45] VITALS: O2SAT 97
[2025-03-22] MEDS: MORPHINE SULFATE INJ 2 MG/ml SYRG IV PRN (21:05)
--- NOTE | 2025-03-22 21:12 | ECG ---
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
--- NOTE | 2025-03-22 21:13 | ECG ---
[facility] Test Date: 2025-03-22 Test Time: 10:21:36 Pat Name: LUIS DANIEL MIRELES Department: ED Room: 0212T Gender: F Extender: zan : 1970 Requested By: JOVANNA CISNEROS Order Number: [id number] Reading MD: Arash Bautista Measurements Intervals [place] Rate: 75 P: 75 VA: 243 QRS: 65 QRSD: 110 T: 46 QT: 434 QTc: 485 Interpretive Statements Sinus arrhythmia Prolonged VA interval Consider left atrial enlargement Electronically Signed On 03-25-2025 18:39:13 PDT by Arash Bautista Please click the below link to view image of tracing.
--- NOTE | 2025-03-22 21:13 | ECG ---
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
[2025-03-22] MEDS: COLCHICINE 0.6 MG CAP PO SCH (22:00)
[2025-03-22] MEDS: BACLOFEN 10 MG TAB PO SCH (22:00)
[2025-03-22] MEDS: lamoTRIgine 100 MG TAB PO SCH (22:00)
[2025-03-22] MEDS ORDERED: PATIENTS OWN MEDICATION (Baclofen 1 TAB) PO SCH (22:00)
[2025-03-22] MEDS: PREGABALIN CAPSULE 75 MG CAP PO SCH (22:00)
[2025-03-22] MEDS ORDERED: PATIENTS OWN MEDICATION (Pregabalin 1 CAP) PO SCH (22:00)
[2025-03-22] MEDS ORDERED: PATIENTS OWN MEDICATION (Colchicine 0.6 MG) PO SCH (22:00)
[2025-03-22] MEDS: ATORVASTATIN 20 MG TAB PO SCH (22:00)
[2025-03-22 23:32] VITALS: BP 136/96; PULSE 87; RESP 18; TEMP 98.7; O2SAT 95
[2025-03-23 05:00] VITALS: BP 147/89; PULSE 92; RESP 19; TEMP 97.8; O2SAT 100
[2025-03-23 07:39] LABS: Hematocrit 49.7 % (36.0-46.0); Hemoglobin 16.9 g/dL (12.2-16.2); Mean Corpuscular Hemoglobin 31.8 pg (28.0-32.0); Mean Corpuscular Volume 93.4 fL (80.0-100.0); Nucleated Red Blood Cells % 0.1 %
[2025-03-23 07:46] LABS: Anion Gap 8 (5-15); Calcium 10.2 mg/dL (8.7-10.4); Carbon Dioxide 26 mmol/L (20-31); Potassium 3.9 mmol/L (3.5-5.1); Sodium 141 mmol/L (136-145)
[2025-03-23 07:47] LABS: Chloride 107 mmol/L (98-107)
[2025-03-23 07:52] LABS: BUN/Creatinine Ratio 14.9 (10.0-20.0); Blood Urea Nitrogen 10 mg/dL (9-23); Glucose 95 mg/dL (74-106); Triglycerides 134 mg/dL (< 150)
[2025-03-23 07:53] LABS: Magnesium 2.2 mg/dL (1.6-2.6)
[2025-03-23 07:54] LABS: Cholesterol 216 mg/dL (< 200); HDL Cholesterol 55 mg/dL (40-59)
[2025-03-23 08:00] VITALS: PULSE 102; PULSE 122; RESP 16; O2SAT 98
[2025-03-23] MEDS: CITALOPRAM HYDROBR 20 MG TAB PO SCH (10:00)
[2025-03-23] MEDS ORDERED: PRAMIPEXOLE DIHYDROCHLORIDE PO SCH (10:00)
[2025-03-23] MEDS ORDERED: PATIENTS OWN MEDICATION (Escitalopram Oxalate 1 TAB) PO SCH (10:00)
[2025-03-23] MEDS: PRAMIPEXOLE DIHYDROCHLORIDE MO 0.25 MG TAB PO SCH (10:07)
[2025-03-23 13:00] VITALS: BP 118/74; PULSE 85; RESP 18; TEMP 98.5; O2SAT 94
--- NOTE | 2025-03-23 15:18 | DVHPN2 ---
Subjective The patient is seen and examined at bedside. Complain of chest pain. Reviewed: Care Plan, H&P, Labs, Medications, Previous Orders, Radiology Changes from previous H/P or p: No Changes Cardiovascular: Chest Pain Gastrointestinal: Nausea, Vomiting Objective Vitals Vital Signs Date Time Temp Pulse Resp B/P (MAP) Pulse Ox O2 Delivery O2 Flow Rate FiO2 03/23/25 13:00 98.5 85 18 118/74 (89) 94 98.5 03/23/25 08:00 Room Air* 0 21 Intake/Output Intake and Output 03/23/25 07:00 Intake Total 300 ml Balance 300 ml Intake Oral 300 ml # Voids 2 General Appearance: Alert, Cooperative, mild distress HEENT: Atraumatic, PERRLA, EOMI, Mucous membr. moist/pink Neck: Supple Lungs: Clear to auscultation, Normal air movement Cardiovascular: Regular rate, Normal S1, Normal S2, No murmurs, Gallops, Rubs Abdomen: Normal bowel sounds, Soft, No tenderness Neuro: Cranial nerves 3-12 NL Psych/Mental Status: Mental status NL Medications Current Medications Medications Dose Ordered Sig/Cherise Route Start Time Stop Time Status Last Admin Dose Admin Aspirin 81 mg DAILY PO 03/23/25 10:00 03/23/25 10:05 81 MG Atorvastatin Calcium 40 mg HS PO 03/22/25 22:00 Morphine Sulfate 2 mg Q30MP PRN IV 03/22/25 12:00 03/22/25 17:07 2 MG Acetaminophen 650 mg Q6HP PRN PO 03/22/25 12:00 Nitroglycerin 0.4 mg Q5MINP PRN SL 03/22/25 12:00 Ondansetron HCl 4 mg Q4HP PRN IV 03/22/25 12:00 03/23/25 13:13 4 MG Nitroglycerin 0.4 mg Q5MINP PRN SL 03/22/25 12:00 Morphine Sulfate 2 mg Q30M PRN IV 03/22/25 12:00 03/22/25 21:05 2 MG Buspirone HCl 10 mg DAILY PO 03/23/25 10:00 03/23/25 10:05 10 MG Lamotrigine 100 mg BID PO 03/22/25 22:00 03/23/25 10:06 100 MG Patient Own Medication 1 tab BID PO 03/22/25 22:00 UNV Patient Own Medication 0.6 mg BID PO 03/22/25 22:00 UNV Patient Own Medication 1 tab DAILY PO 03/23/25 10:00 UNV Patient Own Medication 1 mg DAILY PO 03/23/25 10:00 UNV Patient Own Medication 1 cap BID PO 03/22/25 22:00 UNV Baclofen 20 mg BID PO 03/22/25 22:00 03/23/25 10:06 20 MG Colchicine 0.6 mg BID PO 03/22/25 22:00 03/23/25 10:05 0.6 MG Citalopram Hydrobromide 40 mg DAILY PO 03/23/25 10:00 Pregabalin 150 mg BID PO 03/22/25 22:00 03/23/25 10:06 150 MG Pramipexole Dihydrochloride 1 mg DAILY PO 03/23/25 10:00 03/23/25 10:07 1 MG Laboratory Results Laboratory Tests 03/23/25 05:38 Chemistry Test 03/23/25 05:38 Calcium Level 10.2 mg/dL (8.7-10.4) Magnesium Level 2.2 mg/dL (1.6-2.6) Lipid panel Test 03/23/25 05:38 Cholesterol Level 216 mg/dL (< 200) H HDL Cholesterol 55 mg/dL (40-59) Triglycerides Level 134 mg/dL (< 150) Urinalysis Test 03/22/25 15:15 Urine Color Light-yellow (Yellow) Urine Clarity Clear (Clear) Urine pH 8.0 (5.0-9.0) Urine Specific [place] 1.014 (1.001-1.035) Urine Protein Trace (Negative) H Urine Ketones 2+ (Negative) H Urine Blood Trace /uL (Negative) H Urine Nitrite Negative (Negative) Urine Bilirubin Negative (Negative) Urine Urobilinogen Normal mg/dL (Negative) Urine Leukocyte Esterase Negative /uL (Negative) Urine RBC 16 /hpf (0 - 4) Urine Microscopic WBC 1 /HPF (0-5) Urine Squamous Epithelial Cells Few /hpf (<5) Urine Bacteria None seen /hpf (None Seen) Urine Hyaline Casts Few /lpf (0 - 2) Urine Glucose Normal mg/dL (Normal) Labs and/or images reviewed: Labs reviewed by me Assessment/Plan Assessment/Plan Chest pain likely due to drug and tobacco use Acute hypoxic respiratory failure Morbid obesity Hypokalemia Hyperlipidemia Hypertension Depression History of hysterectomy History of tonsillectomy History of left heart catheterization in February of 2025 with noted EF 60% Continuing current management. Continuing with the IV fluid. I am going to replace electrolytes. I will start the patient on [place] 01/3251 tablet every 4 hours prn for pain. I will put in a Cardiology consult. This medical document was created using an electronic medical record system with [employer] direct computerized dictation system. Although this document has been carefully reviewed, there may still be some phonetic and typographical errors. These areas are purely typographical due to imperfections of the software programs, and do not reflect any compromise in the patient's medical care. Plan discussed with: Patient Date of Service: Mar 23, 2025 Billing Provider: TRISTA BROOKS MD Common Visit Codes: [id number] INP/OBS CARE(HIGH) TRISTA BROOKS MD Mar 23, 2025 15:18
[2025-03-23 16:23] VITALS: BP 131/95; PULSE 94; RESP 16; TEMP 99.4; O2SAT 96
[2025-03-23] MEDS: HYDROcodone-ACET 5/325MG TAB PO PRN (17:47)
[2025-03-23 20:00] VITALS: PULSE 106; PULSE 89; RESP 17; O2SAT 97
[2025-03-23 21:00] VITALS: BP 149/100; PULSE 89; RESP 18; TEMP 98.2; O2SAT 98
[2025-03-24] VITALS (8 sets, daily range): BP systolic 100–131; BP diastolic 73–82; PULSE 79–126; RESP 16–19; TEMP 98.4–99.7; O2SAT 18–98
--- NOTE | 2025-03-24 14:50 | DVHPN2 ---
Subjective The patient is seen and examined at bedside. Complain of chest pain. Complain of shortness for breath. Patient had a list to ask me regarding to her heart condition. Per patient about a month ago she was hospitalized for pericarditis and chest pain. She requests to restart her home anxiety medication Klonopin and trazodone 300 mg at bedtime Reviewed: Care Plan, H&P, Labs, Medications, Previous Orders, Radiology Changes from previous H/P or p: No Changes Cardiovascular: Chest Pain Gastrointestinal: Nausea, Vomiting Objective Vitals Vital Signs Date Time Temp Pulse Resp B/P (MAP) Pulse Ox O2 Delivery O2 Flow Rate FiO2 03/24/25 09:00 98.6 110 19 109/80 (90) 94 98.6 03/23/25 20:00 Room Air* 0 21 Intake/Output Intake and Output 03/24/25 07:00 Intake Total 628 ml Output Total 400 ml Balance 228 ml Intake Oral 628 ml Output Urine Total 400 ml # Voids 2 General Appearance: Alert, Cooperative, mild distress HEENT: Atraumatic, PERRLA, EOMI, Mucous membr. moist/pink Neck: Supple Lungs: Clear to auscultation, Normal air movement Cardiovascular: Regular rate, Normal S1, Normal S2, No murmurs, Gallops, Rubs Abdomen: Normal bowel sounds, Soft, No tenderness Neuro: Cranial nerves 3-12 NL Psych/Mental Status: Mental status NL Medications Current Medications Medications Dose Ordered Sig/Cherise Route Start Time Stop Time Status Last Admin Dose Admin Aspirin 81 mg DAILY PO 03/23/25 10:00 03/24/25 10:29 81 MG Atorvastatin Calcium 40 mg HS PO 03/22/25 22:00 03/23/25 22:25 40 MG Morphine Sulfate 2 mg Q30MP PRN IV 03/22/25 12:00 03/22/25 17:07 2 MG Acetaminophen 650 mg Q6HP PRN PO 03/22/25 12:00 Nitroglycerin 0.4 mg Q5MINP PRN SL 03/22/25 12:00 Ondansetron HCl 4 mg Q4HP PRN IV 03/22/25 12:00 03/24/25 05:03 4 MG Buspirone HCl 10 mg DAILY PO 03/23/25 10:00 03/24/25 10:29 10 MG Lamotrigine 100 mg BID PO 03/22/25 22:00 03/24/25 10:30 100 MG Patient Own Medication 1 tab BID PO 03/22/25 22:00 UNV Patient Own Medication 0.6 mg BID PO 03/22/25 22:00 UNV Patient Own Medication 1 tab DAILY PO 03/23/25 10:00 UNV Patient Own Medication 1 mg DAILY PO 03/23/25 10:00 UNV Patient Own Medication 1 cap BID PO 03/22/25 22:00 UNV Baclofen 20 mg BID PO 03/22/25 22:00 03/24/25 10:30 20 MG Colchicine 0.6 mg BID PO 03/22/25 22:00 03/24/25 10:29 0.6 MG Citalopram Hydrobromide 40 mg DAILY PO 03/23/25 10:00 Pregabalin 150 mg BID PO 03/22/25 22:00 03/24/25 10:30 150 MG Pramipexole Dihydrochloride 1 mg DAILY PO 03/23/25 10:00 03/24/25 10:30 1 MG Acetaminophen/ Hydrocodone Bitart 1 tab Q4HPRN PRN PO 03/23/25 17:00 03/23/25 23:50 1 TAB Laboratory Results Laboratory Tests 03/23/25 05:38 Urinalysis Test 03/22/25 15:15 Urine Color Light-yellow (Yellow) Urine Clarity Clear (Clear) Urine pH 8.0 (5.0-9.0) Urine Specific [place] 1.014 (1.001-1.035) Urine Protein Trace (Negative) H Urine Ketones 2+ (Negative) H Urine Blood Trace /uL (Negative) H Urine Nitrite Negative (Negative) Urine Bilirubin Negative (Negative) Urine Urobilinogen Normal mg/dL (Negative) Urine Leukocyte Esterase Negative /uL (Negative) Urine RBC 16 /hpf (0 - 4) Urine Microscopic WBC 1 /HPF (0-5) Urine Squamous Epithelial Cells Few /hpf (<5) Urine Bacteria None seen /hpf (None Seen) Urine Hyaline Casts Few /lpf (0 - 2) Urine Glucose Normal mg/dL (Normal) Labs and/or images reviewed: Labs reviewed by me Assessment/Plan Assessment/Plan Chest pain likely due to drug and tobacco use Acute hypoxic respiratory failure Morbid obesity Hypokalemia Hyperlipidemia Hypertension Depression History of hysterectomy History of tonsillectomy History of left heart catheterization in February of 2025 with noted EF 60% Continuing current management. Continuing with the IV fluid. I am going to replace electrolytes. I will start the patient on [place] 01/3251 tablet every 4 hours prn for pain. Waiting for folding machine feeder to see the patient. We will restart her home medication.. This medical document was created using an electronic medical record system with [employer] direct computerized dictation system. Although this document has been carefully reviewed, there may still be some phonetic and typographical errors. These areas are purely typographical due to imperfections of the software programs, and do not reflect any compromise in the patient's medical care. Plan discussed with: Patient My Orders Orders - TRISTA BROOKS MD Procedure Category Date Status Time Hydrocodone-Acet PHA 03/23/25 In Process 5/325mg Tab ([place] 17:00 * Cardiology Consult CONS 03/24/25 Transmitted 09:51 Date of Service: Mar 24, 2025 Billing Provider: TRISTA BROOKS MD Common Visit Codes: [id number] INP/OBS CARE(HIGH) TRISTA BROOKS MD Mar 24, 2025 14:50
[2025-03-24] MEDS: clonazePAM 0.5 MG TAB PO PRN (20:19)
[2025-03-24] MEDS: MUPIROCIN 2% OINT 15gm or 22gm TOP SCH (22:05)
[2025-03-25 05:00] VITALS: BP 94/61; PULSE 84; RESP 17; TEMP 98.1; O2SAT 93
--- NOTE | 2025-03-25 07:23 | ECG ---
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
[2025-03-25 08:00] VITALS: PULSE 91
[2025-03-25 09:00] VITALS: BP 116/61; PULSE 97; RESP 19; TEMP 97.6; O2SAT 96
--- NOTE | 2025-03-25 10:55 | DVHPN2 ---
Subjective The patient is seen and examined at bedside. Complain of chest pain. Complain of shortness for breath. Patient had a list to ask me regarding to her heart condition. Per patient about a month ago she was hospitalized for pericarditis and chest pain. She requests to restart her home anxiety medication Klonopin and trazodone 300 mg at bedtime Reviewed: Care Plan, H&P, Labs, Medications, Previous Orders, Radiology Cardiovascular: Chest Pain Gastrointestinal: Nausea, Vomiting Objective Vitals Vital Signs Date Time Temp Pulse Resp B/P (MAP) Pulse Ox O2 Delivery O2 Flow Rate FiO2 03/25/25 09:00 97.6 97 19 116/61 (79) 96 97.6 03/25/25 08:00 Room Air* 0 21 Intake/Output Intake and Output 03/25/25 07:00 Intake Total 1740 ml Balance 1740 ml Intake Oral 1740 ml # Voids 3 General Appearance: Alert, Cooperative, mild distress HEENT: Atraumatic, PERRLA, EOMI, Mucous membr. moist/pink Neck: Supple Lungs: Clear to auscultation, Normal air movement Cardiovascular: Regular rate, Normal S1, Normal S2, No murmurs, Gallops, Rubs Abdomen: Normal bowel sounds, Soft, No tenderness Neuro: Cranial nerves 3-12 NL Psych/Mental Status: Mental status NL Medications Current Medications Medications Dose Ordered Sig/Cherise Route Start Time Stop Time Status Last Admin Dose Admin Aspirin 81 mg DAILY PO 03/23/25 10:00 03/24/25 10:29 81 MG Atorvastatin Calcium 40 mg HS PO 03/22/25 22:00 03/24/25 22:04 40 MG Morphine Sulfate 2 mg Q30MP PRN IV 03/22/25 12:00 03/22/25 17:07 2 MG Acetaminophen 650 mg Q6HP PRN PO 03/22/25 12:00 Nitroglycerin 0.4 mg Q5MINP PRN SL 03/22/25 12:00 Ondansetron HCl 4 mg Q4HP PRN IV 03/22/25 12:00 03/25/25 09:04 4 MG Buspirone HCl 10 mg DAILY PO 03/23/25 10:00 03/24/25 10:29 10 MG Lamotrigine 100 mg BID PO 03/22/25 22:00 03/24/25 22:05 100 MG Patient Own Medication 1 tab BID PO 03/22/25 22:00 UNV Patient Own Medication 0.6 mg BID PO 03/22/25 22:00 UNV Patient Own Medication 1 tab DAILY PO 03/23/25 10:00 UNV Patient Own Medication 1 mg DAILY PO 03/23/25 10:00 UNV Patient Own Medication 1 cap BID PO 03/22/25 22:00 UNV Baclofen 20 mg BID PO 03/22/25 22:00 03/24/25 22:04 20 MG Colchicine 0.6 mg BID PO 03/22/25 22:00 03/24/25 22:03 0.6 MG Citalopram Hydrobromide 40 mg DAILY PO 03/23/25 10:00 Pregabalin 150 mg BID PO 03/22/25 22:00 03/24/25 22:04 150 MG Pramipexole Dihydrochloride 1 mg DAILY PO 03/23/25 10:00 03/24/25 10:30 1 MG Acetaminophen/ Hydrocodone Bitart 1 tab Q4HPRN PRN PO 03/23/25 17:00 03/25/25 09:06 1 TAB Mupirocin 1 applic BID TOP 03/24/25 22:00 03/24/25 22:05 1 APPLIC Clonazepam 0.5 mg Q8HP PRN PO 03/24/25 15:15 03/25/25 09:04 0.5 MG Empaglifozin 10 mg DAILY PO 03/25/25 10:00 Furosemide 40 mg DAILY PO 03/25/25 10:00 Trazodone HCl 300 mg HS PO 03/24/25 22:00 03/24/25 22:02 300 MG Laboratory Results Laboratory Tests 03/23/25 05:38 Urinalysis Test 03/22/25 15:15 Urine Color Light-yellow (Yellow) Urine Clarity Clear (Clear) Urine pH 8.0 (5.0-9.0) Urine Specific [place] 1.014 (1.001-1.035) Urine Protein Trace (Negative) H Urine Ketones 2+ (Negative) H Urine Blood Trace /uL (Negative) H Urine Nitrite Negative (Negative) Urine Bilirubin Negative (Negative) Urine Urobilinogen Normal mg/dL (Negative) Urine Leukocyte Esterase Negative /uL (Negative) Urine RBC 16 /hpf (0 - 4) Urine Microscopic WBC 1 /HPF (0-5) Urine Squamous Epithelial Cells Few /hpf (<5) Urine Bacteria None seen /hpf (None Seen) Urine Hyaline Casts Few /lpf (0 - 2) Urine Glucose Normal mg/dL (Normal) Assessment/Plan Assessment/Plan Chest pain likely due to drug and tobacco use Acute hypoxic respiratory failure Morbid obesity Hypokalemia Hyperlipidemia Hypertension Depression History of hysterectomy History of tonsillectomy History of left heart catheterization in February of 2025 with noted EF 60% Continuing current management. Continuing with the IV fluid. I am going to replace electrolytes. I will start the patient on [place] 01/3251 tablet every 4 hours prn for pain. Waiting for hospital unit coordinator to see the patient. We will restart her home medication.. This medical document was created using an electronic medical record system with [employer] dictation system. Although this document has been carefully reviewed, there may still be some phonetic and typographical errors. These areas are purely typographical due to imperfections of the software programs, and do not reflect any compromise in the patient's medical care. My Orders Orders - TRISTA BROOKS MD Procedure Category Date Status Time Mupirocin 2% Ointment PHA 03/24/25 In Process (Bactroban 2% Oint 22:00 Clonazepam Tablet PHA 03/24/25 In Process (Klonopin Tablet) 15:15 Empagliflozin PHA 03/25/25 In Process (Jardiance) 10:00 Furosemide Tablet PHA 03/25/25 In Process (Lasix Tablet) 10:00 Trazodone Hcl PHA 03/24/25 In Process (Desyrel) 22:00 * Cardiology Consult CONS 03/25/25 Transmitted 03:42 TRISTA BROOKS MD Mar 25, 2025 10:55
[2025-03-25] MEDS: EMPAGLIFLOZIN 10 MG TAB PO SCH (11:02)
[2025-03-25] MEDS: FUROSEMIDE 40 MG TAB PO SCH (11:03)
--- NOTE | 2025-03-25 12:13 | DVHCONRES ---
Date Seen: Mar 25, 2025 Resident Creating Document: JESUS MANUEL MARIN RESDIENT History of Present Illness This is a 55-year-old female with past medical history of dyslipidemia, hypertension, depression, fibromyalgia and osteoporosis came to the hospital due to chest pain since 1 day. Pain is localized at substernal area, radiating to the back, 7/10, increasing with taking deep breaths. She also reports of nausea, vomiting, and sweating. She denies fever, cough, or any recent chest trauma/sick contact. Patient history of pericarditis 1 month back, has been taking colchicine twice daily. Previous hospitalization: Patient underwent coronary angiogram on February 24, 2025, showed no significant coronary artery disease with EF 60% PMHx:dyslipidemia, hypertension, depression, fibromyalgia and osteoporosis Social history: Ex-smoker with more than 50 pack year history, denies any other drug use Home medication: Buspirone, colchicine, Jardiance, escitalopram, lamotrigine, pramipexole, pregabalin, topiramate and Lasix, Allergic history: Sulfa antibiotic and varenicline Patient seen and examined at the bedside. Patient is feeling better since admission does not have any active complaint. Family History: Diabetes mellitus GRANDMA Allergies: Coded Allergies: Sulfa Antibiotics (Verified Allergy, Unknown, 01/22/21) Varenicline (Verified Allergy, Unknown, SUICIDAL, 02/23/25) Home Meds Active Scripts Colchicine (Colchicine) 0.6 Mg Cap, 0.6 MG PO BID for 60 Days, #120 CAP Prov:SHERIN CASTAÑEDA OPERATIONS TECH 02/25/25 Reported Medications Pramipexole Dihydrochloride (Mirapex Er) 3 Mg Tab, 1 MG PO DAILY for Cramps , TAB 02/25/25 Baclofen (Baclofen) 20 Mg Tab, 1 TAB PO BID 02/24/25 Topiramate (Topiramate) 25 Mg Tab, 1 TAB PO BID 02/24/25 Pregabalin (Pregabalin) 150 Mg Cap, 1 CAP PO BID 02/24/25 Lamotrigine (Lamotrigine) 100 Mg Tab, 1 TAB PO BID 02/24/25 Escitalopram Oxalate (ESCITALOPRAM OXALATE) 20 Mg Tab, 1 TAB PO DAILY 02/24/25 Buspirone HCl (Buspirone HCl) 10 Mg Tab, TAB PO 02/24/25 Empagliflozin (Jardiance) 10 Mg Tab, 1 TAB PO DAILY 02/24/25 Current Medications Current Medications Medications (Trade) Dose Ordered Sig/Cherise Route PRN Reason Start Time Stop Time Status Last Admin Mupirocin (Bactroban 2% Ointment) 1 applic BID TOP 03/24/25 22:00 03/25/25 11:03 Clonazepam (KlonoPIN TABLET) 0.5 mg Q8HP PRN PO ANXIETY 03/24/25 15:15 03/25/25 09:04 Empaglifozin (Jardiance) 10 mg DAILY PO 03/25/25 10:00 03/25/25 11:02 Furosemide (Lasix Tablet) 40 mg DAILY PO 03/25/25 10:00 03/25/25 11:03 Trazodone HCl (Desyrel) 300 mg HS PO 03/24/25 22:00 03/24/25 22:02 Vital Signs Vital Signs Date Time Temp Pulse Resp B/P (MAP) Pulse Ox O2 Delivery O2 Flow Rate FiO2 03/25/25 11:03 116/61 03/25/25 09:00 97.6 97 19 96 97.6 03/25/25 08:00 Room Air* 0 21 Physical Exam General Appearance: Alert, Oriented X3, Cooperative, No acute distress HEENT: Atraumatic, PERRLA, EOMI, Mucous membrane moist/pink Respiratory: Clear to auscultation, Normal air movement Cardiovascular: Regular rate, Normal S1, Normal S2, No murmurs, no chest wall tenderness Abdominal: Normal bowel sounds, Soft, No tenderness, No hepatospenomegaly, No masses Extremities: No clubbing, No cyanosis, No edema, Normal pulses, No tenderness/swelling Skin: No rashes, No breakdown, No significant lesion Neuro: Normal gait, Normal speech, Strength at 5/5 X4 ext, Normal tone, Sensation intact, Cranial nerves 3-12 NL, Reflexes 2+ Psych/Mental Status: Mental status NL, Mood NL Labs/Diagnostic Data Labs Test 03/24/25 18:56 03/23/25 05:38 03/22/25 15:15 03/22/25 09:07 Range/Units HIV (1&2) Antibody Negative Negative White Blood Count 12.2 #H 4.4-10.8 10^3/uL Red Blood Count 5.31 H 4.0-5.20 10^6/uL Hemoglobin 16.9 H 12.2-16.2 g/dL Hematocrit 49.7 H 36.0-46.0 % Mean Corpuscular Volume 93.4 80.0-100.0 fL Mean Corpuscular Hemoglobin 31.8 28.0-32.0 pg Mean Corpuscular Hemoglobin Concent 34.1 32.0-36.0 g/dL Red Cell Distribution Width 13.6 11.8-14.3 % Platelet Count 276 140-450 10^3/uL Mean Platelet Volume 9.0 6.9-10.8 fL Neutrophils (%) (Auto) 75.5 37.0-80.0 % Lymphocytes (%) (Auto) 15.2 10.0-50.0 % Monocytes (%) (Auto) 9.0 0.0-12.0 % Eosinophils (%) (Auto) 0.1 0.0-7.0 % Basophils (%) (Auto) 0.2 0.0-2.0 % Neutrophils # (Auto) 9.2 H 1.6-8.6 10 ^3/uL Lymphocytes # (Auto) 1.9 0.4-5.4 10 ^3/uL Monocytes # (Auto) 1.1 0-1.3 10 ^3/uL Eosinophils # (Auto) 0 0-0.8 10 ^3/uL Basophils # (Auto) 0 0-0.2 10 ^3/uL Nucleated Red Blood Cells 0.1 % Sodium Level 141 136-145 mmol/L Potassium Level 3.9 3.5-5.1 mmol/L Chloride Level 107 98-107 mmol/L Carbon Dioxide Level 26 20-31 mmol/L Anion Gap 8 5-15 Blood Urea Nitrogen 10 9-23 mg/dL Creatinine 0.67 0.550-1.02 mg/dL Glomerular Filtration Rate Calc 102 >90 mL/min BUN/Creatinine Ratio 14.9 10.0-20.0 Serum Glucose 95 74-106 mg/dL Calcium Level 10.2 8.7-10.4 mg/dL Magnesium Level 2.2 1.6-2.6 mg/dL Triglycerides Level 134 < 150 mg/dL Cholesterol Level 216 H < 200 mg/dL LDL Cholesterol 147 H < 100 mg/dL HDL Cholesterol 55 40-59 mg/dL Urine Color Light-yellow Yellow Urine Clarity Clear Clear Urine pH 8.0 5.0-9.0 Urine Specific [place] 1.014 1.001-1.035 Urine Protein Trace H Negative Urine Ketones 2+ H Negative Urine Blood Trace H Negative /uL Urine Nitrite Negative Negative Urine Bilirubin Negative Negative Urine Urobilinogen Normal Negative mg/dL Urine Leukocyte Esterase Negative Negative /uL Urine RBC 16 0 - 4 /hpf Urine Microscopic WBC 1 0-5 /HPF Urine Squamous Epithelial Cells Few <5 /hpf Urine Bacteria None seen None Seen /hpf Urine Hyaline Casts Few 0 - 2 /lpf Urine Glucose Normal Normal mg/dL Urine Opiates Screen Neg NEGATIVE Urine Fentanyl Screen Neg NEGATIVE Urine Barbiturates Screen Neg NEGATIVE Urine Phencyclidine Screen Neg NEGATIVE Urine Amphetamines Screen Neg NEGATIVE Urine Benzodiazepines Screen Neg NEGATIVE Urine Cocaine Screen Neg NEGATIVE Urine Cannabinoids Screen Pos NEGATIVE Troponin I High Sensitivity 3 L </=34 ng/L Thyroid Stimulating Hormone (TSH) 0.45 L 0.55-4.78 uIU/mL Free Thyroxine (T4) Calculated 1.25 0.89-1.76 ng/dL Test 03/22/25 08:10 Range/Units B-Type Natriuretic Peptide 9.57 0-100 pg/mL Assessment Chest pain, noncardiac Dyslipidemia Hypertension Depression Fibromyalgia Osteoporosis Obesity * EKGs shows normal sinus rhythm with no significant ST or T-wave changes * BNP and serial trop I is within normal limits * Coronary angiogram which was performed on February 24, 2025, showed no significant coronary artery disease with a EF 60% * Echo shows normal biventricular function with no significant valvular pathology Plan/recommendation * Rosuvastatin 20 mg daily and aspirin 81 mg daily * In context of normal EKG, trop I, echo, and normal angiogram of 1 month back, the patient does not need further cardiology workup at the moment, follow up with the Cardiology on outpatient basis * Rest of plan per primary team * We sign of the patient Thank you for giving us the opportunity to take care of your patient. Please call back if any question/concern. Plan discussed with: Patient, Other (RN) NYHA Physical activity limitations: JESUS MANUEL LEZAMA Mar 25, 2025 12:13
[2025-03-25] MEDS ORDERED: HYDR-4902 PO (12:17)
--- NOTE | 2025-03-25 12:19 | DVHDS2 ---
Discharge Summary Date of Admission Mar 22, 2025 at 11:51 Date of Discharge: Mar 25, 2025 Admitting Diagnosis Chest pain likely due to drug and tobacco use Acute hypoxic respiratory failure Morbid obesity Hypokalemia Hyperlipidemia Hypertension Depression History of hysterectomy History of tonsillectomy History of left heart catheterization in February of 2025 with noted EF 60% Labs/Diagnostic Data: Laboratory Results Test 03/24/25 18:56 03/23/25 05:38 03/22/25 15:15 03/22/25 09:07 HIV (1&2) Antibody Negative (Negative) White Blood Count 12.2 10^3/uL (4.4-10.8) Red Blood Count 5.31 10^6/uL (4.0-5.20) Hemoglobin 16.9 g/dL (12.2-16.2) Hematocrit 49.7 % (36.0-46.0) Mean Corpuscular Volume 93.4 fL (80.0-100.0) Mean Corpuscular Hemoglobin 31.8 pg (28.0-32.0) Mean Corpuscular Hemoglobin Concent 34.1 g/dL (32.0-36.0) Red Cell Distribution Width 13.6 % (11.8-14.3) Platelet Count 276 10^3/uL (140-450) Mean Platelet Volume 9.0 fL (6.9-10.8) Neutrophils (%) (Auto) 75.5 % (37.0-80.0) Lymphocytes (%) (Auto) 15.2 % (10.0-50.0) Monocytes (%) (Auto) 9.0 % (0.0-12.0) Eosinophils (%) (Auto) 0.1 % (0.0-7.0) Basophils (%) (Auto) 0.2 % (0.0-2.0) Neutrophils # (Auto) 9.2 10 ^3/uL (1.6-8.6) Lymphocytes # (Auto) 1.9 10 ^3/uL (0.4-5.4) Monocytes # (Auto) 1.1 10 ^3/uL (0-1.3) Eosinophils # (Auto) 0 10 ^3/uL (0-0.8) Basophils # (Auto) 0 10 ^3/uL (0-0.2) Nucleated Red Blood Cells 0.1 % Sodium Level 141 mmol/L (136-145) Potassium Level 3.9 mmol/L (3.5-5.1) Chloride Level 107 mmol/L (98-107) Carbon Dioxide Level 26 mmol/L (20-31) Anion Gap 8 (5-15) Blood Urea Nitrogen 10 mg/dL (9-23) Creatinine 0.67 mg/dL (0.550-1.02) Glomerular Filtration Rate Calc 102 mL/min (>90) BUN/Creatinine Ratio 14.9 (10.0-20.0) Serum Glucose 95 mg/dL (74-106) Calcium Level 10.2 mg/dL (8.7-10.4) Magnesium Level 2.2 mg/dL (1.6-2.6) Triglycerides Level 134 mg/dL (< 150) Cholesterol Level 216 mg/dL (< 200) LDL Cholesterol 147 mg/dL (< 100) HDL Cholesterol 55 mg/dL (40-59) Urine Color Light-yellow (Yellow) Urine Clarity Clear (Clear) Urine pH 8.0 (5.0-9.0) Urine Specific [place] 1.014 (1.001-1.035) Urine Protein Trace (Negative) Urine Ketones 2+ (Negative) Urine Blood Trace /uL (Negative) Urine Nitrite Negative (Negative) Urine Bilirubin Negative (Negative) Urine Urobilinogen Normal mg/dL (Negative) Urine Leukocyte Esterase Negative /uL (Negative) Urine RBC 16 /hpf (0 - 4) Urine Microscopic WBC 1 /HPF (0-5) Urine Squamous Epithelial Cells Few /hpf (<5) Urine Bacteria None seen /hpf (None Seen) Urine Hyaline Casts Few /lpf (0 - 2) Urine Glucose Normal mg/dL (Normal) Urine Opiates Screen Neg (NEGATIVE) Urine Fentanyl Screen Neg (NEGATIVE) Urine Barbiturates Screen Neg (NEGATIVE) Urine Phencyclidine Screen Neg (NEGATIVE) Urine Amphetamines Screen Neg (NEGATIVE) Urine Benzodiazepines Screen Neg (NEGATIVE) Urine Cocaine Screen Neg (NEGATIVE) Urine Cannabinoids Screen Pos (NEGATIVE) Troponin I High Sensitivity 3 ng/L (</=34) Thyroid Stimulating Hormone (TSH) 0.45 uIU/mL (0.55-4.78) Free Thyroxine (T4) Calculated 1.25 ng/dL (0.89-1.76) Test 03/22/25 08:10 B-Type Natriuretic Peptide 9.57 pg/mL (0-100) Other Laboratory Tests 03/23/25 05:38 Brief Hx & Hospital Course: A 55 years old female with past medical history hyperlipidemia, hypertension, depression, hysterectomy, left heart catheterization, questionable pericarditis per patient history, marijuana abuse came to emergency department because of chest pain which started on the day of admission. Chest pain is 5/10 intermittent in nature. The patient was admitted. The patient was very anxious and crying. She said somebody told her that she had HIV and she decided to come to hospital for that. HIV was checked in the hospital in his was negative. Patient was discuss about that and feel little bit better. Regarding to her chest pain, her troponin level was normal, EKG is normal. She just recently had cardiac catheterization with the result showed:RCA is a large vessel it is normal in its proximal mid and distal segments. PDA and posterolateral branches are normal. The left main is large and normal. The left anterior descending is a large vessel it is normal in its proximal mid and distal segments. PDA and posterolateral branches are normal. The circumflex is large vessel the two marginals free of significant disease. The vessel is normal as are the marginals. Ventriculography in the NEW projection shows an EF of 60%. Embedded Systems Software Developer see the patient this time and did not recommend any further workup. Echo was done showed normal EF and no pericardial fluid. Left ventricle: Left ventricle is normal-sized with normal systolic function. LVEF was around 70%. There was no gross wall motion abnormality. Diastolic function of left ventricle was normal. Right ventricle is mildly dilated with normal systolic function. Both atria were mildly dilated. Aortic valve: Aortic valve was trileaflet. There was mild aortic insufficiency. There was no aortic stenosis. There was mild mitral regurgitation. There was trace tricuspid regurgitation. Pulmonary valve was not well visualized. Right ventricular systolic pressure was normal at 19 mm Hg. There was no pericardial effusion. Aortic root was mildly dilated at 4.0 cm. Today she did not complain of chest pain. I am going to discharge her home. Advised her to follow up with primary care physician 1-2 weeks. Activity as tolerated. Diet low-salt low-cholesterol diet. Physical Exam today showed: HEENT: Normocephalic atraumatic pupils equal react to light and accommodation. Extraocular muscles intact, conjunctiva pink, oropharynx moist, no thrush, no exudate. Lymphatic: No lymphadenopathy Cardiovascular exam: S1, S2 was heard. No murmurs, rubs, gallops Lung: Clear on auscultation bilaterally, no wheeze, rale, rhonchi. GI: Abdominal soft, nondistended, nontenderness, positive bowel sounds. Extremity: No crepitus, cyanosis, edema. Pedal pulses present bilateral. Full range of motion. Skin: Normal turgor, no rash. Psych: Alert, oriented x3. Neurology: No focal deficits, cranial nerve II to XII grossly intact. This medical document was created using an electronic medical record system with [employer] computerized dictation system. Although this document has been carefully reviewed, there may still be some phonetic and typographical errors. These areas are purely typographical due to imperfections of the software programs, and do not reflect any compromise in the patient's medical care. Condition at Discharge: Stable Final Diagnosis/Problems List Chest pain likely due to drug and tobacco use Acute hypoxic respiratory failure Morbid obesity Hypokalemia Hyperlipidemia Hypertension Depression History of hysterectomy History of tonsillectomy History of left heart catheterization in February of 2025 with noted EF 60% Discharge Disposition: Home Discharge Instruct/Medications Diet: Consistent carbohydrate, Cardiac 2g Na,low cholest Activity: No Restrictions, As Tolerated Follow Up/Referral: pcp 1-2 weeks system designer per schedule Medications: resume home meds [place] 5/325 one tab q4hPNR Scheduled Baclofen (Baclofen), 1 TAB PO BID, (Reported) Colchicine (Colchicine), 0.6 MG PO BID Empagliflozin (Jardiance), 1 TAB PO DAILY, (Reported) Escitalopram Oxalate (Escitalopram Oxalate), 1 TAB PO DAILY, (Reported) Lamotrigine (Lamotrigine), 1 TAB PO BID, (Reported) Pramipexole Dihydrochloride (Mirapex Er), 1 MG PO DAILY, (Reported) Pregabalin (Pregabalin), 1 CAP PO BID, (Reported) Topiramate (Topiramate), 1 TAB PO BID, (Reported) Scheduled PRN Hydrocodone-Acetaminophen (Hydrocodone Bitartrate/AC 5-325 mg), 1 TAB PO Q4HPRN PRN Ondansetron Odt 4MG Tab (Zofran Po), 4 MG PO Q4HPRN PRN Miscellaneous Medications Buspirone HCl (Buspirone HCl), TAB PO, (Reported) Discharge Statement: "Patient was advised to return to the ER or call 911 if any headaches, dizziness, shortness of breath, chest pain, abdominal pain, bleeding, fevers, or worsening of medical condition. Patient was counseled about treatment plan, medications, possible side effects, patientverbalized understanding. All questions were answered to the best of my ability. This discharge took greater then 30 minutes in planning, reviewing documentation, counseling the patient, and discussing with other team members." ASSESSMENT ASSESSMENT Assessment chest pain Date of Service: Mar 25, 2025 Billing Provider: TRISTA BROOKS MD Common Visit Codes: 32558-NZX/OBS DISCH DAY >30min TRISTA BROOKS MD Mar 25, 2025 12:19
[2025-03-25 12:49] VITALS: BP 93/60; PULSE 95; RESP 18; TEMP 97.8; O2SAT 95
[2025-03-25 14:16] VITALS: BP 116/61; PULSE 97; RESP 19; TEMP 97.6; O2SAT 96
[2025-03-25] MEDS ORDERED: ZOFR4T PO (14:40)
--- NOTE | 2025-03-25 22:37 | DVHINCON2 ---
Date of service: Mar 25, 2025 Referring Physician Adalgisa Reason for Consultation Chest pain History of Present Illness This is a 55-year-old female with a past medical history of dyslipidemia, hypertension, depression, fibromyalgia and osteoporosis came to the hospital due to chest pain since 1 day. Pain is localized at substernal area, radiating to the back, 7/10, increasing with taking deep breaths. She also reports of nausea, vomiting, and sweating. She denies fever, cough, or any recent chest trauma/sick contact. Patient history of pericarditis 1 month back, has been taking colchicine twice daily. EKGs shows normal sinus rhythm with no significant ST or T-wave changes. BNP and serial trop I is within normal limits. Patient was admitted to the hospital. Coronary angiogram which was performed on February 24, 2025, showed no significant coronary artery disease with a EF 60%. Echo shows normal biventricular function with no significant valvular pathology. Past Medical History dyslipidemia, hypertension, depression, fibromyalgia and osteoporosis Family History: Diabetes mellitus GRANDMA Allergies: Coded Allergies: Sulfa Antibiotics (Verified Allergy, Unknown, 01/22/21) Varenicline (Verified Allergy, Unknown, SUICIDAL, 02/23/25) Home Meds Active Scripts Ondansetron Odt 4MG Tab (ZOFRAN PO) 4 Mg Tb, 4 MG PO Q4HPRN PRN, #30 TAB ODT TAB-DISSOLVE IN MOUTH, THEN SWALLOW Prov:TRISTA BROOKS MD 03/25/25 Hydrocodone-Acetaminophen (Hydrocodone Bitartrate/AC 5-325 mg) 1 Tab Tab, 1 TAB PO Q4HPRN PRN, #20 TAB Prov:TRISTA BROOKS MD 03/25/25 Colchicine (Colchicine) 0.6 Mg Cap, 0.6 MG PO BID for 60 Days, #120 CAP Prov:SHERIN CASTAÑEDA EDUCATIONAL GUIDANCE COUNSELOR 02/25/25 Reported Medications Pramipexole Dihydrochloride (Mirapex Er) 3 Mg Tab, 1 MG PO DAILY for Cramps , TAB 02/25/25 Baclofen (Baclofen) 20 Mg Tab, 1 TAB PO BID 02/24/25 Topiramate (Topiramate) 25 Mg Tab, 1 TAB PO BID 02/24/25 Pregabalin (Pregabalin) 150 Mg Cap, 1 CAP PO BID 02/24/25 Lamotrigine (Lamotrigine) 100 Mg Tab, 1 TAB PO BID 02/24/25 Escitalopram Oxalate (ESCITALOPRAM OXALATE) 20 Mg Tab, 1 TAB PO DAILY 02/24/25 Buspirone HCl (Buspirone HCl) 10 Mg Tab, TAB PO 02/24/25 Empagliflozin (Jardiance) 10 Mg Tab, 1 TAB PO DAILY 02/24/25 Current Medications Current Medications Medications (Trade) Dose Ordered Sig/Cherise Route PRN Reason Start Time Stop Time Status Last Admin Empaglifozin (Jardiance) 10 mg DAILY PO 03/25/25 10:00 03/25/25 15:33 DC 03/25/25 11:02 Furosemide (Lasix Tablet) 40 mg DAILY PO 03/25/25 10:00 03/25/25 15:33 DC 03/25/25 11:03 Review of Systems Constitutional: denies: chills, diaphoresis, fatigue, fever, malaise, sweats, weakness, others EENTM: denies: blurred vision, double vision, ear bleeding, ear discharge, ear drainage, ear pain, ear ringing, eye pain, eye redness, hearing loss, mouth pain, mouth swelling, nasal discharge, nose bleeding, nose congestion, nose pain, photophobia, tearing, throat pain, throat swelling, voice changes, others Respiratory: denies: cough, hemoptysis, orthopnea, SOB at rest, shortness of breath, SOB with excertion, stridor, wheezing, others Cardiovascular: reports: chest pain; denies: dizzy spells, diaphoresis, Dyspnea on exertion, edema, irregular heart beat, left arm pain, lightheadedness, palpitations, PND, syncope, others Gastrointestinal: reports: abdominal pain, diarrhea, nausea, vomiting; denies: abdomen distended, blood streaked bowels, constipated, dysphagia, difficulty swallowing, hematemesis, melena, poor appetite, poor fluid intake, rectal bleeding, rectal pain, others Genitourinary: denies: abnormal vagina bleeding, burning, dyspareunia, dysuria, flank pain, frequency, hematuria, incontinence, pain, , vagina discharge, urgency, others Neurological: denies: dizziness, fainting, headache, left sided numbness, left sided weakness, numbness, paresthesia, pre-existing deficit, right sided numbness, right sided weakness, seizure, speech problems, tingling, tremors, weakness, others Musculoskeletal: reports: back pain; denies: gout, joint pain, joint swelling, muscle pain, muscle stiffness, neck pain, others Integumetry: denies: bruises, change in color, change in hair/nails, dryness, laceration, lesions, lumps, rash, wounds, others Allergic/Immunocompromised: denies: Difficulty Healing, Frequent Infections, Hives, Itching, others Hematologic/Lymphatic: denies: anemia, blood clots, easy bleeding, easy bruising, swollen glands, others Endocrine: denies: excessive hunger, excessive sweating, excessive thirst, excessive urination, flushing, intolerance to cold, intolerance to heat, unexplained weight gain, unexplained weight loss, others Psychiatric: denies: anxiety, bipolar disorder, depression, hopeless, panic disorder, schizophrenia, sleepless, suicidal, others All Other Systems: Reviewed and Negative Vital Signs Vital Signs Date Time Temp Pulse Resp B/P (MAP) Pulse Ox O2 Delivery O2 Flow Rate FiO2 03/25/25 14:16 97.6 97 19 96 03/25/25 12:49 93/60 (71) 03/25/25 08:00 Room Air* 0 21 Physical Exam GENERAL: Alert and oriented x 3. No acute distress. EYES: PERRL, EOMI. Anicteric. HENT: Moist mucous membranes. LUNGS: Clear to auscultation bilaterally. CARDIOVASCULAR: Regular rate and rhythm. ABDOMEN: Soft, non-tender and non-distended. EXTREMITIES: No edema. NEUROLOGIC: No focal neurological deficits. SKIN: Warm, dry. Labs/Diagnostic Data Labs Test 03/24/25 18:56 03/23/25 05:38 03/22/25 15:15 03/22/25 09:07 Range/Units HIV (1&2) Antibody Negative Negative White Blood Count 12.2 #H 4.4-10.8 10^3/uL Red Blood Count 5.31 H 4.0-5.20 10^6/uL Hemoglobin 16.9 H 12.2-16.2 g/dL Hematocrit 49.7 H 36.0-46.0 % Mean Corpuscular Volume 93.4 80.0-100.0 fL Mean Corpuscular Hemoglobin 31.8 28.0-32.0 pg Mean Corpuscular Hemoglobin Concent 34.1 32.0-36.0 g/dL Red Cell Distribution Width 13.6 11.8-14.3 % Platelet Count 276 140-450 10^3/uL Mean Platelet Volume 9.0 6.9-10.8 fL Neutrophils (%) (Auto) 75.5 37.0-80.0 % Lymphocytes (%) (Auto) 15.2 10.0-50.0 % Monocytes (%) (Auto) 9.0 0.0-12.0 % Eosinophils (%) (Auto) 0.1 0.0-7.0 % Basophils (%) (Auto) 0.2 0.0-2.0 % Neutrophils # (Auto) 9.2 H 1.6-8.6 10 ^3/uL Lymphocytes # (Auto) 1.9 0.4-5.4 10 ^3/uL Monocytes # (Auto) 1.1 0-1.3 10 ^3/uL Eosinophils # (Auto) 0 0-0.8 10 ^3/uL Basophils # (Auto) 0 0-0.2 10 ^3/uL Nucleated Red Blood Cells 0.1 % Sodium Level 141 136-145 mmol/L Potassium Level 3.9 3.5-5.1 mmol/L Chloride Level 107 98-107 mmol/L Carbon Dioxide Level 26 20-31 mmol/L Anion Gap 8 5-15 Blood Urea Nitrogen 10 9-23 mg/dL Creatinine 0.67 0.550-1.02 mg/dL Glomerular Filtration Rate Calc 102 >90 mL/min BUN/Creatinine Ratio 14.9 10.0-20.0 Serum Glucose 95 74-106 mg/dL Calcium Level 10.2 8.7-10.4 mg/dL Magnesium Level 2.2 1.6-2.6 mg/dL Triglycerides Level 134 < 150 mg/dL Cholesterol Level 216 H < 200 mg/dL LDL Cholesterol 147 H < 100 mg/dL HDL Cholesterol 55 40-59 mg/dL Urine Color Light-yellow Yellow Urine Clarity Clear Clear Urine pH 8.0 5.0-9.0 Urine Specific [place] 1.014 1.001-1.035 Urine Protein Trace H Negative Urine Ketones 2+ H Negative Urine Blood Trace H Negative /uL Urine Nitrite Negative Negative Urine Bilirubin Negative Negative Urine Urobilinogen Normal Negative mg/dL Urine Leukocyte Esterase Negative Negative /uL Urine RBC 16 0 - 4 /hpf Urine Microscopic WBC 1 0-5 /HPF Urine Squamous Epithelial Cells Few <5 /hpf Urine Bacteria None seen None Seen /hpf Urine Hyaline Casts Few 0 - 2 /lpf Urine Glucose Normal Normal mg/dL Urine Opiates Screen Neg NEGATIVE Urine Fentanyl Screen Neg NEGATIVE Urine Barbiturates Screen Neg NEGATIVE Urine Phencyclidine Screen Neg NEGATIVE Urine Amphetamines Screen Neg NEGATIVE Urine Benzodiazepines Screen Neg NEGATIVE Urine Cocaine Screen Neg NEGATIVE Urine Cannabinoids Screen Pos NEGATIVE Troponin I High Sensitivity 3 L </=34 ng/L Thyroid Stimulating Hormone (TSH) 0.45 L 0.55-4.78 uIU/mL Free Thyroxine (T4) Calculated 1.25 0.89-1.76 ng/dL Test 03/22/25 08:10 Range/Units B-Type Natriuretic Peptide 9.57 0-100 pg/mL Assessment Chest pain, noncardiac. Dyslipidemia. Hypertension. Depression. Fibromyalgia. Osteoporosis. Obesity. Plan/Recommendation I agree with your ongoing assessment and care of plan. Patient has been seen by He was Maximo, resident on my behalf. We have discussed the plan with the patient. Rosuvastatin 20 mg daily and aspirin 81 mg daily. In context of normal EKG, trop I, echo, and normal angiogram of 1 month back, the patient does not need further cardiology workup at the moment, follow up with the Cardiology on outpatient basis. Rest of plan per primary team. We sign of the patient. Additional plan as per the hospital course. Plan discussed with: Patient JUDSON TORRES MD Mar 25, 2025 22:37
== END 2025-03-25 15:10 | disposition home or self-care (01) | DRG 313 ==
LOC: EDBD 07:19 → ER 07:19 → OVERFLOW 11:51 → TELE-CENTR 22:48
PROVIDERS: ADMIT Internal Medicine; ATTEND Internal Medicine
DX: R07.89 Other chest pain (principal); J96.01 Acute respiratory failure with hypoxia; E87.6 Hypokalemia; E66.01 Morbid (severe) obesity due to excess calories; I10 Essential (primary) hypertension; F32.A Depression, unspecified; E78.5 Hyperlipidemia, unspecified; M81.0 Age-related osteoporosis without current pathological fracture; M79.7 Fibromyalgia; Z83.3 Family history of diabetes mellitus; Z90.710 Acquired absence of both cervix and uterus; Z79.899 Other long term (current) drug therapy; Z88.8 Allergy status to other drugs, medicaments and biological substances; Z88.1 Allergy status to other antibiotic agents; Z79.84 Long term (current) use of oral hypoglycemic drugs; Z68.31 Body mass index [BMI] 31.0-31.9, adult; Z72.0 Tobacco use; F12.10 Cannabis abuse, uncomplicated
CPT/HCPCS: 36415; 71045; 80048; 80061; 80307; 81001; 83735; 83880; 84439; 84443; 84484; 85025; 86703; 93005; 93306; 96374; 96375; 99291; G0378; J2405

== ENCOUNTER 2025-06-15 00:11 | Inpatient (IN) | payer OTHER, BC ==
[2025-06-15] VITALS (7 sets, daily range): BP systolic 118–131; BP diastolic 80–105; PULSE 76–91; RESP 18–21; TEMP 97.9–98.4; O2SAT 94–96
[~2025-06-15] VITALS: Ht 167.6 cm; Wt 86.0 kg
[~2025-06-15 00:11] MED LIST changes: +HYDR-4902 PO; +ZOFR4T PO
--- NOTE | 2025-06-15 00:38 | ED.PDOC ---
History of Present Illness HPI Comments 55 y/o obese F presents wtih c/c of left sided chest pain, with associated nausea and vomiting for the past 2-3 hours. Signifcant history of HLD, HIV, HTN, and left heart catheterization. Pain radiates to her left jaw and shoulder. No endorsed provoking or modifying factors. Denial of any shortness of breath, bloody or bilious vomitus, or further associated symptoms. Chief Complaint: Chest Pain Time Seen by MD: 00:20 Primary Care Provider: UNKNOWN Reviewed Notes: Nurses Notes, Salvage Grinder Notes, Medications, Allergies Allergies: Coded Allergies: Sulfa Antibiotics (Verified Allergy, Unknown, 01/22/21) Varenicline (Verified Allergy, Unknown, SUICIDAL, 02/23/25) Home Meds Active Scripts Ondansetron Odt 4MG Tab (ZOFRAN PO) 4 Mg Tb, 4 MG PO Q4HPRN PRN, #30 TAB ODT TAB-DISSOLVE IN MOUTH, THEN SWALLOW Prov:TRISTA BROOKS MD 03/25/25 Hydrocodone-Acetaminophen (Hydrocodone Bitartrate/AC 5-325 mg) 1 Tab Tab, 1 TAB PO Q4HPRN PRN, #20 TAB Prov:TRISTA BROOKS MD 03/25/25 Colchicine (Colchicine) 0.6 Mg Cap, 0.6 MG PO BID for 60 Days, #120 CAP Prov:SHERIN CASTAÑEDA NP 02/25/25 Reported Medications Pramipexole Dihydrochloride (Mirapex Er) 3 Mg Tab, 1 MG PO DAILY for Cramps , TAB 02/25/25 Baclofen (Baclofen) 20 Mg Tab, 1 TAB PO BID 02/24/25 Topiramate (Topiramate) 25 Mg Tab, 1 TAB PO BID 02/24/25 Pregabalin (Pregabalin) 150 Mg Cap, 1 CAP PO BID 02/24/25 Lamotrigine (Lamotrigine) 100 Mg Tab, 1 TAB PO BID 02/24/25 Escitalopram Oxalate (ESCITALOPRAM OXALATE) 20 Mg Tab, 1 TAB PO DAILY 02/24/25 Buspirone HCl (Buspirone HCl) 10 Mg Tab, TAB PO 02/24/25 Empagliflozin (Jardiance) 10 Mg Tab, 1 TAB PO DAILY 02/24/25 Information Source: Patient, Emergency Med Personnel Mode of Arrival: EMS Severity: Moderate Timing: Hours Duration: Since onset Prehospital treatment: 12 Lead EKG, Accucheck, Phototypesetter Operator Past Medical History PAST MEDICAL HISTORY: Depression, High Lipids, HIV, HTN Surgical History: Hysterectomy, Tonsillectomy Surgical History (Other): left heart catheterization TELEVISION PRODUCTION CLERK History: Denies all TELEVISION PRODUCTION CLERK Hx Family History Family History: Reviewed,noncontributory to illness, Unknown, Family hx of heart leta Social History Smoker: Non-Smoker Alcohol: Denies ETOH Use Drugs: Marijuana Lives In: Home All Other Systems: Reviewed and Negative (Comprehensive review of systems are negative unless stated in HPI) Physical Exam General Appearance: Moderate Distress HEENT: Normal ENT Inspection, Pharynx Normal, TMs Normal Neck: Full Range of Motion, Non-Tender, Normal, Normal Inspection Respiratory: Chest Non-Tender, Lungs Clear, No Accessory Muscle Use, No Respiratory Distress, Normal Breath Sounds Cardiovascular: Irregular Breast Exam: Deferred Gastrointestinal: No Organomegaly, Non Tender, No Pulsatile Mass, Normal Bowel Sounds, Soft Genitalia: Deferred Pelvic: Deferred Rectal: Deferred Extremities: No calf tenderness, Normal capillary refill, Normal inspection, Normal range of motion, Non-tender, No pedal edema Musculoskeletal : Apperance: Normal Neurologic: Alert, customs opener verifier packer II-XII nml as Tested, No Motor Deficits, Normal Affect, Normal Mood, No Sensory Deficits Cerebellar Function: NOT DONE Reflexes: NOT DONE Skin: Dry, Normal Color, Warm Peripheral Pulses: 3+ Radial (R), 3+ Radial (L) Lymphatic: No Adenopathy Was a procedure done? Was a procedure done?: No EKG EKG : [place]: Normal Block: None Hypertrophy: None ST: Normal Comments sinus arrhythmia Differential Dx Considerations may include: GA, PE, ACS, URI, PNA, angina, anxiety, viral syndrome, among others X-Ray, Labs, Meds, VS Vital Signs Date Time Temp Pulse Resp B/P (MAP) Pulse Ox O2 Delivery O2 Flow Rate FiO2 06/15/25 00:11 97.6 72 24 133/96 95 97.6 Lab Test 06/15/25 00:20 Range/Units White Blood Count Pending Red Blood Count Pending Hemoglobin Pending Hematocrit Pending Mean Corpuscular Volume Pending Mean Corpuscular Hemoglobin Pending Mean Corpuscular Hemoglobin Concent Pending Red Cell Distribution Width Pending Platelet Count Pending Mean Platelet Volume Pending Neutrophils (%) (Auto) Pending Lymphocytes (%) (Auto) Pending Monocytes (%) (Auto) Pending Basophils (%) (Auto) Pending Neutrophils # (Auto) Pending Lymphocytes # (Auto) Pending Monocytes # (Auto) Pending Sodium Level Pending Potassium Level Pending Chloride Level Pending Carbon Dioxide Level Pending Anion Gap Pending Blood Urea Nitrogen Pending Creatinine Pending Glomerular Filtration Rate Calc Pending BUN/Creatinine Ratio Pending Serum Glucose Pending Calcium Level Pending Troponin I High Sensitivity Pending Patient alert. Complaining of chest pain. EKG reviewed does show sinus arrhythmia. Saturation pristine on room air. She was given aspirin. Was given morphine. Was given Zofran. She continues to have pain. Explained to the patient. Continue to monitor. Time of 1ST Reevaluation: 00:50 Reevaluation 1ST: Unchanged Patient Education/Counseling: Diagnosis, Treatment Family Education/Counseling: No Family Present SEPSIS Sepsis Screen Date sepsis recognized/suspect: Jun 15, 2025 Time Sepsis recognized/suspect: 001 Recent Procedure: No On Antibiotic Therapy: No Respiratory Rate >20: No Heart Rate >90: No Temp<36 C (96.8 F) or >38.3 C: No SBP <90 or MAP <65 mmHG: No New Acute Mental Status Change: No Is the patient on CPAP, BIPAP,: No Physician Orders Complete Blood Count (06/15/25 00:21) Sodium Chloride 0.9% (06/15/25 00:30) Sodium Chloride 0.9% (06/15/25 00:30) Urinalysis (06/15/25 00:21) Basic Metabolic Panel (06/15/25 00:21) Troponin-I Hs (06/15/25 00:23) Troponin-I Hs (06/15/25 01:23) Troponin-I Hs (06/15/25 03:23) Vital Signs Date Time Temp Pulse Resp B/P (MAP) Pulse Ox O2 Delivery O2 Flow Rate FiO2 06/15/25 00:11 97.6 72 24 133/96 95 97.6 Laboratory Tests Test 06/15/25 00:20 White Blood Count Pending Departure 1 Departure Time of Disposition: 00:50 Impression: Primary Impression: Chest pain of unknown etiology Disposition: ADMITTED INPATIENT Admit to: Med Surg Condition: Guarded Critical Care Note Critical Care Time?: Yes (90 min-critical care time only) Stability Stability form required: No Heart Score Heart Score: Heart Score Response (Comments) Value History Moderate Suspicious 1 EKG Normal 0 Age 45-64 1 Risk Factors >3 or Hx ASHD 2 Troponin Normal limit 0 Total 4 I personally scribed for SONDRA BARRY MD ([email or web address]) on 06/15/25 at 00:38. Electronically submitted by Jadon Angeles ([email or web address]). SONDRA BARRY MD Jun 15, 2025 00:38
[2025-06-15 00:56] LABS: Potassium 4.0 mmol/L (3.5-5.1)
[2025-06-15 00:57] LABS: Anion Gap 6 (5-15); Carbon Dioxide 29 mmol/L (20-31); Chloride 111 mmol/L (98-107); Sodium 146 mmol/L (136-145)
[2025-06-15 00:58] LABS: Calcium 9.2 mg/dL (8.7-10.4)
[2025-06-15 01:02] LABS: BUN/Creatinine Ratio 16.2 (10.0-20.0); Blood Urea Nitrogen 12 mg/dL (9-23)
[2025-06-15 01:03] LABS: Hematocrit 46.1 % (36.0-46.0); Hemoglobin 15.5 g/dL (12.2-16.2); Mean Corpuscular Hemoglobin 31.5 pg (28.0-32.0); Mean Corpuscular Volume 94.0 fL (80.0-100.0); Nucleated Red Blood Cells % 0.0 %
[2025-06-15] MEDS: LIDOCAINE VISCOUS 2% 15ML UD PO ONE (01:03)
[2025-06-15] MEDS: MAALOX PLUS or MAALOX 30 ML PO ONE (01:03)
[2025-06-15] MEDS: ONDANSETRON HCL 4 MG/2 ML VIAL IV ONE (01:03)
[2025-06-15] MEDS: SODIUM CHLORIDE 0.9% 1,000 ML IVB ONE (01:04)
[2025-06-15] MEDS: LORazepam 2MG/ML-1ML VIAL IV ONE (01:06)
[2025-06-15] MEDS: MORPHINE SULFATE 4 MG/ML SYR/VIAL IV ONE (01:07)
[2025-06-15 01:09] LABS: Glucose 122 mg/dL (74-106)
[2025-06-15] MEDS: DONNATAL 5ml ORAL Elix (BELLADONNA ALK-PHENOBARB) PO ONE (01:14)
[2025-06-15] MEDS: SODIUM CHLORIDE 0.9% 1,000 ML IV ONE (01:19)
[2025-06-15 01:58] LABS: Urine Budding Yeast MANY /hpf (None Seen); Urine Protein, UAD Negative (Negative); Urine WBC Clumps PRESENT /hpf (None Seen)
--- NOTE | 2025-06-15 04:57 | DVHHPRES ---
History of Present Illness Resident Creating Document: ROSALIE AGUILAR History of Present Illness Ms. Saunders is a 55-year-old female with prior medical history of pericarditis, hypertension, hyperlipidemia, and GERD, who presents today with chief complaint of chest pain. Patient states she woke up this evening with retrosternal chest pain described as achy, non-radiating, 8/10 intensity, associated with multiple emetic episodes, diaphoresis, shortness of breath at rest, without aggravating or relieving factors, associated with epigastric pain. Denies fever, palpitat ions, loss of consciousness, and other symptoms. The patient states she had run out of her colchicine, and recently restarted said medication. Due to persistence of symptoms, the patient sought medical care in the emergency department. On evaluation in the ED, the patient was in moderate distress and slightly hypertensive. Lead EKG shows sinus rhythm with prolongation of ID int erval. Initial labs show CBC within normal range, mild hypernatremia, and negative troponins. Chest x-ray shows possible mild pulmonary vascular congestion. She was started on IV fluids, IV pain medication, IV emetic regimen and admitted for further workup and monitoring. 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 HEENT: Denies changes in vision and hearing. Respiratory: Refers shortness of breath Denies cough Cardiovascular: Refers chest pain, denies palpitations GI: Refers epigastric pain, nausea and vomiting, Denies abdominal distention, diarrhea : Denies dysuria and urinary frequency. Musculoskeletal: Denies symptoms Skin: Denies rash and pruritus. Neurological: denies dizziness headache vision or hearing problems Allergies: Coded Allergies: Sulfa Antibiotics (Verified Allergy, Unknown, 01/22/21) Varenicline (Verified Allergy, Unknown, SUICIDAL, 02/23/25) Exam Vital Signs Vital Signs Date Time Temp Pulse Resp B/P (MAP) Pulse Ox O2 Delivery O2 Flow Rate FiO2 06/15/25 04:00 80 22 136/81 (99) 93 06/15/25 00:30 Room Air* 0 21 06/15/25 00:30 97.9 97.9 Exam General: The patient alert and oriented in person place and time. Patient following commands HEENT: Normocephalic, atraumatic, normal reactive pupils, EOM intact, pink conjunctiva, pink dry mucous membrane Respiratory/pulmonary: Bilateral chest expansion, no pain on palpation of chest wall, clear lungs bilaterally, vesicular murmurs present in almost all lung muñiz, no associated crackles or wheezes. Cardiovascular: Normal RRR, normal S1 and S2, no murmurs, EKG was prolongation of ID interval Abdomen: Abdomen nondistended, normal bowel sounds, soft, pain to palpation of epigastrium, no palpable masses. Extremities: No deformities, there is no peripheral edema present at the lower extremities, normal pulses Skin: No rashes or pruritus, there is no sacral edema present at this time. Neurological: Intact cranial nerves with no focal neurologic deficits Labs/Xrays Labs Test 06/15/25 02:28 06/15/25 01:36 06/15/25 01:11 06/15/25 00:20 Range/Units Troponin I High Sensitivity 4 </=34 ng/L Urine Color Light-brown Yellow Urine Clarity Ex.turbid Clear Urine pH 7.5 5.0-9.0 Urine Specific [place] 1.017 1.001-1.035 Urine Protein Negative Negative Urine Ketones Negative Negative Urine Blood Negative Negative /uL Urine Nitrite Negative Negative Urine Bilirubin Negative Negative Urine Urobilinogen Normal Negative mg/dL Urine Leukocyte Esterase Negative Negative /uL Urine RBC 1 0 - 4 /hpf Urine WBC Clumps Present None Seen /hpf Urine Microscopic WBC 10 H 0-5 /HPF Urine Squamous Epithelial Cells None seen <5 /hpf Urine Bacteria None seen None Seen /hpf Urine Yeast (Budding) Many None Seen /hpf Urine Glucose 4+ H Normal mg/dL White Blood Count 10.0 4.4-10.8 10^3/uL Red Blood Count 4.90 4.0-5.20 10^6/uL Hemoglobin 15.5 12.2-16.2 g/dL Hematocrit 46.1 H 36.0-46.0 % Mean Corpuscular Volume 94.0 80.0-100.0 fL Mean Corpuscular Hemoglobin 31.5 28.0-32.0 pg Mean Corpuscular Hemoglobin Concent 33.5 32.0-36.0 g/dL Red Cell Distribution Width 15.2 H 11.8-14.3 % Platelet Count 247 140-450 10^3/uL Mean Platelet Volume 9.3 6.9-10.8 fL Neutrophils (%) (Auto) 63.7 37.0-80.0 % Lymphocytes (%) (Auto) 28.6 10.0-50.0 % Monocytes (%) (Auto) 5.3 0.0-12.0 % Eosinophils (%) (Auto) 2.0 0.0-7.0 % Basophils (%) (Auto) 0.4 0.0-2.0 % Neutrophils # (Auto) 6.4 1.6-8.6 10 ^3/uL Lymphocytes # (Auto) 2.9 0.4-5.4 10 ^3/uL Monocytes # (Auto) 0.5 0-1.3 10 ^3/uL Eosinophils # (Auto) 0.2 0-0.8 10 ^3/uL Basophils # (Auto) 0 0-0.2 10 ^3/uL Nucleated Red Blood Cells 0.0 % Sodium Level 146 H 136-145 mmol/L Potassium Level 4.0 3.5-5.1 mmol/L Chloride Level 111 H 98-107 mmol/L Carbon Dioxide Level 29 20-31 mmol/L Anion Gap 6 5-15 Blood Urea Nitrogen 12 9-23 mg/dL Creatinine 0.74 0.550-1.02 mg/dL Glomerular Filtration Rate Calc 94 >90 mL/min BUN/Creatinine Ratio 16.2 10.0-20.0 Serum Glucose 122 H 74-106 mg/dL Hemoglobin A1c 5.4 <5.7 % A1C Calcium Level 9.2 8.7-10.4 mg/dL SEPSIS Sepsis Screen Date sepsis recognized/suspect: Jun 15, 2025 Time Sepsis recognized/suspect: 001 Recent Procedure: No On Antibiotic Therapy: No Respiratory Rate >20: No Heart Rate >90: No Temp<36 C (96.8 F) or >38.3 C: No SBP <90 or MAP <65 mmHG: No New Acute Mental Status Change: No Is the patient on CPAP, BIPAP,: No Physician Orders Sodium Chloride 0.9% (06/15/25 00:30) Electrocardigram (06/15/25 04:23) Drug Screen (06/15/25 04:23) Complete Blood Count (06/15/25 04:23) Comprehensive Metabolic Panel (06/15/25 04:23) Magnesium (06/15/25 04:23) Phosphorus (06/15/25 04:23) Thyroid Stimulating Hormone (06/15/25 04:23) Vitamin B12 (06/15/25 04:23) Vitamin D, 25-Hydroxy (06/15/25 04:23) Chest Xray 1 View (06/15/25 04:23) Admit (06/15/25 04:48) Allergies (06/15/25 04:48) Code Status (06/15/25 04:48) Enoxaparin Sodium (Lovenox) (06/15/25 10:00) Cardiac Diet-2gna,Lofat,Lochol (06/15/25 Breakfast) Condition: Stable (06/15/25 04:48) Stat Ekg For Chest Pain (06/15/25 04:48) Notify Md Of Changes From Base (06/15/25 04:48) Ios Programmer For 24 Hours (06/15/25 04:48) Emergency Dysrhythmia Protocol (06/15/25 04:48) Rhythm Strips Once Every Shift (06/15/25 04:48) Pantoprazole (Protonix) (06/15/25 05:00) Ondansetron Hcl (Zofran) (06/15/25 05:00) Alum & Mag Hydrox-Simethicone (Maalox Pl (06/15/25 05:00) Sucralfate Susp (Carafate Susp) (06/15/25 05:00) Empagliflozin (Jardiance) (06/15/25 10:00) Lamotrigine Tablet (Lamictal Tablet) (06/15/25 10:00) Topiramate (Topamax) (06/15/25 10:00) (Nf) Pregabalin (06/15/25 10:00) Buspirone Hcl Tablet (Buspar Tablet) (06/15/25 10:00) Vital Signs Date Time Temp Pulse Resp B/P (MAP) Pulse Ox O2 Delivery O2 Flow Rate FiO2 06/15/25 04:00 80 22 136/81 (99) 93 06/15/25 02:00 78 21 148/89 (108) 92 06/15/25 01:37 70 17 141/93 06/15/25 01:07 76 14 140/90 06/15/25 00:30 Room Air* 0 21 06/15/25 00:30 97.9 60 17 125/74 (91) 98 97.9 06/15/25 00:11 97.6 72 24 133/96 95 97.6 Laboratory Tests Test 06/15/25 00:20 White Blood Count 10.0 10^3/uL (4.4-10.8) Medications Medications Dose Ordered Sig/Cherise Route Start Time Stop Time Status Last Admin Dose Admin Al Hydrox/Mg Hydrox/Simethicone 30 ml ONCE ONCE PO 06/15/25 00:30 06/15/25 00:31 DC 06/15/25 01:03 30 ML Belladonna Alkaloids/ Phenobarbital 10 ml ONCE ONCE PO 06/15/25 00:30 06/15/25 00:31 DC 06/15/25 01:14 10 ML Lidocaine HCl 15 ml ONCE ONCE PO 06/15/25 00:30 06/15/25 00:31 DC 06/15/25 01:03 15 ML Lorazepam 1 mg ONCE ONCE IV 06/15/25 00:30 06/15/25 00:31 DC 06/15/25 01:06 1 MG Morphine Sulfate 4 mg ONCE ONCE IV 06/15/25 00:30 06/15/25 00:31 DC 06/15/25 01:07 4 MG Ondansetron HCl 4 mg ONCE ONCE IV 06/15/25 00:30 06/15/25 00:31 DC 06/15/25 01:03 4 MG Sodium Chloride 1,000 ml @ 150 mls/hr Q6H40M ONCE IV 06/15/25 00:30 06/15/25 07:09 06/15/25 01:19 150 MLS/HR Sodium Chloride 1,000 ml @ 1,000 mls/hr Q1H ONCE IVB 06/15/25 00:30 06/15/25 01:29 DC 06/15/25 01:04 1,000 MLS/HR Assessment/Plan Assessment/Plan Assessment and Plan: Acute respiratory failure Acute Chest Pain, Possibly due to pericarditis ACS ruled out Questionable CHF vs atypical pneumonia - Morphine 4 mg IV once - Sodium chloride 1000 cc bolus - Colchicine 0.6 mg p.o. b.i.d. - Ibuprofen 600 mg p.o. t.i.d. - Indicated one dose of furosemide 40 mg IV due to pulmonary edema and chest x- ray. - Ordered COVID and influenza GERD - Maalox 30 mL p.o. q.6 hours PRN - Sucralfate 1 g p.o. b.i.d. - Protonix 40 mg IV b.i.d. Mild Hypernatremia, likely hypovolemic - Monitor sodium levels Hypertension - Monitor BP Hyperlipidemia Marijuana use - I have counseled the patient on the importance of complete marijuana cessation for 13 minutes. Obesity, BMI 30.6 kg/m2 Diet: Cardiac DVT prophylaxis: Enoxaparin 40 mg SC daily GI prophylaxis: Protonix 40 mg IV b.i.d. Case discussed with Dr. Reaves Goals of care discussed with the patient and her girlfriend at bedside for over 30 minutes. Full code Plan discussed with: Patient, Other (Girlfriend, nurses) My Orders Orders - ROSALIE AGUILAR RESIDENT Procedure Category Date Status Time Electrocardigram EKG 06/15/25 Logged 04:23 Drug Screen LAB 06/15/25 In Process 04:23 Complete Blood Count LAB 06/15/25 Logged 04:23 Comprehensive LAB 06/15/25 Logged Metabolic Panel 04:23 Magnesium LAB 06/15/25 In Process 04:23 Phosphorus LAB 06/15/25 In Process 04:23 Thyroid Stimulating LAB 06/15/25 In Process Hormone 04:23 Vitamin B12 LAB 06/15/25 In Process 04:23 Vitamin D, 25-Hydroxy LAB 06/15/25 In Process 04:23 Chest Xray 1 View XY 06/15/25 Taken 04:23 Admit ADMIT 06/15/25 Transmitted 04:48 Allergies [facility] 06/15/25 Transmitted 04:48 Code Status CODE 06/15/25 Transmitted 04:48 Enoxaparin Sodium PHA 06/15/25 Transmitted (Lovenox) 10:00 Cardiac DIET 06/15/25 Transmitted Diet-2gna,Lofat,Lochol Breakfast Condition: Stable [facility] 06/15/25 Transmitted 04:48 Stat Ekg For Chest [facility] 06/15/25 Transmitted Pain 04:48 Notify Md Of Changes [facility] 06/15/25 Transmitted From Base 04:48 Ios [address]mer [address] [facility] 06/15/25 Transmitted 24 Hours 04:[address] [facility] 06/15/25 Transmitted Protocol 04:48 Rhythm Strips Once [facility] 06/15/25 Transmitted Every Shift 04:[address] [facility] 06/15/25 Transmitted (Protonix) 05:00 Ondansetron Hcl PHA 06/15/25 Transmitted (Zofran) 05:00 Alum & Mag PHA 06/15/25 Transmitted Hydrox-Simethicone 05:00 Sucralfate Susp PHA 06/15/25 Transmitted (Carafate Susp) 05:00 Empagliflozin PHA 06/15/25 Transmitted (Jardiance) 10:[address] [facility] 06/15/25 Transmitted (Lamictal Tablet) 10:00 Topiramate (Topamax) PH[facility] 06/15/25 Transmitted 10:00 (Nf) Pregabalin [facility] 06/15/25 Transmitted 10:[address] [facility] 06/15/25 Transmitted (Buspar Tablet) 10:00 Date of Service: Jun 15, 2025 Billing Provider: EMILY VELEZ MD Common Visit Codes: 47685-TGICSOM INP/OBS CARE (HIGH) Secondary Visit Codes: 17731-[id number] CARE PLAN 30 MINUTES ROSALIE AGUILAR RESIDENT Jun 15, 2025 04:57 WILD GUEVARA RESIDENT Jun 15, 2025 07:08
--- NOTE | 2025-06-15 05:11 | DVH ---
CHEST RADIOGRAPH Indication: Chest pain Technique: Single frontal view of the chest was obtained COMPARISON: XY CHEST PORTABLE on DOS: 03/22/25, XY CHEST XRAY 1 VIEW on DOS: 02/23/25, CHEST TWO VIEWS ROUTINE on DOS: 01/22/21 FINDINGS: Lines and Tubes: None Lungs: Increased interstitial prominence Pleura: No effusion.No pneumothorax. Cardiomediastinal contours: Unremarkable Bones: Unremarkable IMPRESSION: Possible mild pulmonary vascular congestion or viral pneumonia
[2025-06-15] MEDS: PANTOPRAZOLE 40 MG/10 ML VIAL INJ IV SCH ×2 (05:21→09:00)
[2025-06-15] MEDS: SUCRALFATE 1 GM/10 ML ORAL SUSP PO SCH (05:21)
[2025-06-15 05:23] LABS: Benzodiazephine Screen, Urine Pos (NEGATIVE)
[2025-06-15 05:28] LABS: Amphetamine Screen, Urine Neg (NEGATIVE); Barbiturate Scree,Urine Neg (NEGATIVE); Cannabinoid Screen, Urine Pos (NEGATIVE); Cocaine Screen, Urine Neg (NEGATIVE); Opiate Scree,Urine Neg (NEGATIVE); Phencyclidine Screen, Urine Neg (NEGATIVE)
[2025-06-15 05:33] LABS: Magnesium 2.2 mg/dL (1.6-2.6)
[2025-06-15] MEDS: IBUPROFEN 600 MG TAB PO SCH (05:54)
--- NOTE | 2025-06-15 07:03 | ECG ---
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
[2025-06-15] MEDS: FUROSEMIDE 40 MG/4 ML VIAL IV ONE (08:33)
[2025-06-15] MEDS: ONDANSETRON HCL 4 MG/2 ML VIAL IV PRN (08:59)
[2025-06-15] MEDS: ENOXAPARIN SOD 40 MG/0.4 ML SYRINGE SC SCH (09:00)
[2025-06-15] MEDS: TOPIRAMATE 25 MG TAB PO SCH (09:04)
[2025-06-15] MEDS: COLCHICINE 0.6 MG CAP PO SCH (09:04)
[2025-06-15] MEDS: PREGABALIN CAPSULE 75 MG CAP PO SCH (09:04)
[2025-06-15] MEDS: EMPAGLIFLOZIN 10 MG TAB PO SCH (09:05)
[2025-06-15] MEDS: lamoTRIgine 100 MG TAB PO SCH (09:05)
[2025-06-15 09:40] LABS: Hematocrit 48.2 % (36.0-46.0); Hemoglobin 16.1 g/dL (12.2-16.2); Mean Corpuscular Hemoglobin 31.4 pg (28.0-32.0); Mean Corpuscular Volume 93.8 fL (80.0-100.0)
[2025-06-15 09:50] LABS: Alanine Aminotransferase 14 U/L (7-40); Albumin 4.6 g/dL (3.2-4.8); Alkaline Phosphatase 50 U/L (46-116); Anion Gap 9 (5-15); BUN/Creatinine Ratio 11.9 (10.0-20.0); Bilirubin, Total 0.4 mg/dL (0.2-1.0); Calcium 8.8 mg/dL (8.7-10.4); Carbon Dioxide 27 mmol/L (20-31); Chloride 107 mmol/L (98-107); Potassium 3.7 mmol/L (3.5-5.1); Sodium 143 mmol/L (136-145); Total Protein 7.1 g/dL (5.7-8.2)
[2025-06-15 09:53] LABS: Blood Urea Nitrogen 8 mg/dL (9-23); Glucose 157 mg/dL (74-106)
[2025-06-15] MEDS ORDERED: PATIENTS OWN MEDICATION (Colchicine 0.6 MG) PO SCH ×2 (10:00)
[2025-06-15 10:04] LABS: Anisocytosis Slight; Total Cells Counted 100.0 (100)
[2025-06-15 10:07] LABS: Alanine Aminotransferase 16.0 U/L (7-40); Alkaline Phosphatase 53.0 U/L (46-116)
[2025-06-15 10:08] LABS: Albumin 4.7 g/dL (3.2-4.8); Bilirubin, Direct 0.1 mg/dL (<0.3); Bilirubin, Total 0.4 mg/dL (0.2-1.0); Total Protein 7.1 g/dL (5.7-8.2)
[2025-06-15] MEDS: HYDROcodone-ACET 5/325MG TAB PO ONE (12:29)
[2025-06-15] MEDS: PROMETHAZINE HCL 6.25 MG/5 ML ORAL SYRUP PO PRN (16:37)
[2025-06-15 17:46] LABS: COVID19 ANTIGEN SOFIA FIA NEGATIVE (NEGATIVE)
[2025-06-15] MEDS ORDERED: clonazePAM 0.5 MG TAB PO SCH ×2 (18:00→22:00)
[2025-06-15] MEDS: clonazePAM 0.5 MG TAB PO SCH (21:04)
--- NOTE | 2025-06-15 23:11 | DVHINCON2 ---
Date of service: Jun 15, 2025 Referring Physician Miriam Reason for Consultation Chest pain, history of pericarditis History of Present Illness This is a 55 year old female with a past medical history of HLD, HIV, HTN, and left heart catheterization who presents to the ED with complaints of left sided chest pain with associated nausea and vomiting for the past 2-3 hours. Patient reports her chest pain radiates to her left jaw and shoulder. Troponin is negative. Chest x-ray showed possible mild pulmonary vascular congestion or viral pneumonia. EKG is NSR. Patient was admitted to the hospital. I am asked to consult on this patient. Family History: Diabetes mellitus GRANDMA Allergies: Coded Allergies: Sulfa Antibiotics (Verified Allergy, Unknown, 01/22/21) Varenicline (Verified Allergy, Unknown, SUICIDAL, 02/23/25) Home Meds Active Scripts Ondansetron Odt 4MG Tab (ZOFRAN PO) 4 Mg Tb, 4 MG PO Q4HPRN PRN, #30 TAB ODT TAB-DISSOLVE IN MOUTH, THEN SWALLOW Prov:TRISTA BROOKS MD 03/25/25 Hydrocodone-Acetaminophen (Hydrocodone Bitartrate/AC 5-325 mg) 1 Tab Tab, 1 TAB PO Q4HPRN PRN, #20 TAB Prov:TRISTA BROOKS MD 03/25/25 Colchicine (Colchicine) 0.6 Mg Cap, 0.6 MG PO BID for 60 Days, #120 CAP Prov:SHERIN CASTAÑEDA NP 02/25/25 Reported Medications Pramipexole Dihydrochloride (Mirapex Er) 3 Mg Tab, 1 MG PO DAILY for Cramps , TAB 02/25/25 Baclofen (Baclofen) 20 Mg Tab, 1 TAB PO BID 02/24/25 Topiramate (Topiramate) 25 Mg Tab, 1 TAB PO BID 02/24/25 Pregabalin (Pregabalin) 150 Mg Cap, 1 CAP PO BID 02/24/25 Lamotrigine (Lamotrigine) 100 Mg Tab, 1 TAB PO BID 02/24/25 Escitalopram Oxalate (ESCITALOPRAM OXALATE) 20 Mg Tab, 1 TAB PO DAILY 02/24/25 Buspirone HCl (Buspirone HCl) 10 Mg Tab, TAB PO 02/24/25 Empagliflozin (Jardiance) 10 Mg Tab, 1 TAB PO DAILY 02/24/25 Current Medications Current Medications Medications (Trade) Dose Ordered Sig/Cherise Route PRN Reason Start Time Stop Time Status Last Admin Enoxaparin Sodium (Lovenox) 40 mg DAILY SC 06/15/25 10:00 06/15/25 09:00 Pantoprazole Sodium (Protonix) 40 mg DAILY IV 06/15/25 05:00 06/15/25 05:29 DC 06/15/25 05:21 Ondansetron HCl (Zofran) 4 mg Q4HPRN PRN IV NAUSEA / VOMITING 06/15/25 05:00 06/15/25 08:59 Al Hydrox/Mg Hydrox/Simethicone (Maalox Plus) 30 ml Q6HP PRN PO FOR STOMACH DISTRESS 06/15/25 05:00 Sucralfate (Carafate Susp) 1 gm BID@0600,2200 PO 06/15/25 05:00 06/15/25 05:21 Empaglifozin (Jardiance) 10 mg DAILY PO 06/15/25 10:00 06/15/25 09:05 Lamotrigine (LaMICtal TABLET) 100 mg BID PO 06/15/25 10:00 06/15/25 09:05 Topiramate (Topamax) 25 mg BID PO 06/15/25 10:00 06/15/25 09:04 Pregabalin (Lyrica Capsule) 150 mg BID PO 06/15/25 10:00 06/15/25 09:04 Buspirone HCl (Buspar Tablet) 10 mg DAILY PO 06/15/25 10:00 06/15/25 09:05 Patient Own Medication 0.6 mg BID PO 06/15/25 10:00 06/15/25 05:23 DC Ibuprofen (Motrin Tablet) 600 mg TID PO 06/15/25 06:00 06/15/25 15:01 Patient Own Medication 0.6 mg BID PO 06/15/25 10:00 06/15/25 05:26 DC Colchicine (Colcrys) 0.6 mg BID PO 06/15/25 10:00 06/15/25 09:04 Pantoprazole Sodium (Protonix) 40 mg BID IV 06/15/25 10:00 06/15/25 09:00 Promethazine HCl (Phenergan Plain Syrup) 12.5 mg Q6HP PRN PO NAUSEA / VOMITING 06/15/25 15:30 06/15/25 16:37 Clonazepam (KlonoPIN TABLET) 0.5 mg BID PO 06/15/25 22:00 06/15/25 17:28 DC Clonazepam (KlonoPIN TABLET) 0.5 mg Q12HR PO 06/15/25 18:00 06/15/25 17:40 DC Clonazepam (KlonoPIN TABLET) 0.5 mg BID PO 06/15/25 22:00 Review of Systems All Other Systems: Reviewed and Negative (Comprehensive review of systems are negative unless stated in HPI) Vital Signs Vital Signs Date Time Temp Pulse Resp B/P (MAP) Pulse Ox O2 Delivery O2 Flow Rate FiO2 06/15/25 17:00 98.4 87 20 131/105 (114) 94 98.4 06/15/25 08:00 Room Air* 0 21 Physical Exam GENERAL: Alert and oriented x 3. No acute distress. EYES: PERRL, EOMI. Anicteric. HENT: Moist mucous membranes. LUNGS: Clear to auscultation bilaterally. CARDIOVASCULAR: Irregular rate and rhythm. ABDOMEN: Soft, nontender and nondistended. EXTREMITIES: No edema. NEUROLOGIC: No focal neurological deficits. SKIN: Warm, dry. Labs/Diagnostic Data Labs Test 06/15/25 17:03 06/15/25 09:15 06/15/25 02:28 06/15/25 01:36 Range/Units Influenza Type A Antigen Negative Negative Influenza Type B Antigen Negative Negative SARS-CoV-2 Antigen (Rapid) Negative NEGATIVE White Blood Count 8.4 4.4-10.8 10^3/uL Red Blood Count 5.13 4.0-5.20 10^6/uL Hemoglobin 16.1 12.2-16.2 g/dL Hematocrit 48.2 H 36.0-46.0 % Mean Corpuscular Volume 93.8 80.0-100.0 fL Mean Corpuscular Hemoglobin 31.4 28.0-32.0 pg Mean Corpuscular Hemoglobin Concent 33.4 32.0-36.0 g/dL Red Cell Distribution Width 15.0 H 11.8-14.3 % Platelet Count 261 140-450 10^3/uL Mean Platelet Volume 9.1 6.9-10.8 fL Neutrophils (%) (Auto) 37.0-80.0 % Lymphocytes (%) (Auto) 10.0-50.0 % Monocytes (%) (Auto) 0.0-12.0 % Basophils (%) (Auto) 0.0-2.0 % Neutrophils # (Auto) 1.6-8.6 10 ^3/uL Lymphocytes # (Auto) 0.4-5.4 10 ^3/uL Monocytes # (Auto) 0-1.3 10 ^3/uL Differential Total Cells Counted 100.0 100 Neutrophils % (Manual) 79 37.0-80.0 Band Neutrophils % (Manual) 4 Lymphocytes % (Manual) 12 10.0-50.0 Monocytes % (Manual) 4 0-12 Eosinophils % (Manual) 1 0-7 Basophils % (Manual) 0 0.0-2.0 Metamyelocytes % (manual) 0 Myelocytes % (Manual) 0 Promyelocytes % (Manual) 0 Blast Cells % (Manual) 0 Reactive Lymphocytes 0 Platelet Estimate Adequate Anisocytosis (manual) Slight Erythrocyte Sedimentation Rate 2 0-20 mm/hr Sodium Level 143 136-145 mmol/L Potassium Level 3.7 3.5-5.1 mmol/L Chloride Level 107 98-107 mmol/L Carbon Dioxide Level 27 20-31 mmol/L Anion Gap 9 5-15 Blood Urea Nitrogen 8 L 9-23 mg/dL Creatinine 0.67 0.550-1.02 mg/dL Glomerular Filtration Rate Calc 102 >90 mL/min BUN/Creatinine Ratio 11.9 10.0-20.0 Serum Glucose 157 H 74-106 mg/dL Calcium Level 8.8 8.7-10.4 mg/dL Total Bilirubin 0.4 0.2-1.0 mg/dL Direct Bilirubin 0.1 <0.3 mg/dL Aspartate Amino Transferase (AST) 17 13-40 U/L Alanine Aminotransferase (ALT) 16 7-40 U/L Alkaline Phosphatase 53 46-116 U/L C-Reactive Protein High Sensitivity 0.03 <1.0 mg/dL B-Type Natriuretic Peptide 157.20 0-100 pg/mL Total Protein 7.1 5.7-8.2 g/dL Albumin 4.7 3.2-4.8 g/dL Lipase 25 12-53 U/L Troponin I High Sensitivity 4 </=34 ng/L Vitamin B12 Level 434 211-911 pg/mL Vitamin D 25-Hydroxy 88.2 30.0-100 ng/mL Urine Color Light-brown Yellow Urine Clarity Ex.turbid Clear Urine pH 7.5 5.0-9.0 Urine Specific [place] 1.017 1.001-1.035 Urine Protein Negative Negative Urine Ketones Negative Negative Urine Blood Negative Negative /uL Urine Nitrite Negative Negative Urine Bilirubin Negative Negative Urine Urobilinogen Normal Negative mg/dL Urine Leukocyte Esterase Negative Negative /uL Urine RBC 1 0 - 4 /hpf Urine WBC Clumps Present None Seen /hpf Urine Microscopic WBC 10 H 0-5 /HPF Urine Squamous Epithelial Cells None seen <5 /hpf Urine Bacteria None seen None Seen /hpf Urine Yeast (Budding) Many None Seen /hpf Urine Glucose 4+ H Normal mg/dL Urine Opiates Screen Neg NEGATIVE Urine Fentanyl Screen Neg NEGATIVE Urine Barbiturates Screen Neg NEGATIVE Urine Phencyclidine Screen Neg NEGATIVE Urine Amphetamines Screen Neg NEGATIVE Urine Benzodiazepines Screen Pos NEGATIVE Urine Cocaine Screen Neg NEGATIVE Urine Cannabinoids Screen Pos NEGATIVE Test 06/15/25 01:11 06/15/25 00:20 Range/Units Phosphorus Level 2.9 2.4-5.1 mg/dL Magnesium Level 2.2 1.6-2.6 mg/dL Thyroid Stimulating Hormone (TSH) 1.08 0.55-4.78 uIU/mL Eosinophils (%) (Auto) 2.0 0.0-7.0 % Eosinophils # (Auto) 0.2 0-0.8 10 ^3/uL Basophils # (Auto) 0 0-0.2 10 ^3/uL Nucleated Red Blood Cells 0.0 % Hemoglobin A1c 5.4 <5.7 % A1C Assessment Acute respiratory failure. CHest pain. GERD. Hypernatremia. Hypertension. Hyperlipidemia. Marijuana use. Plan/Recommendation I agree with your ongoing assessment and care of plan. Colchicine. DVT and GI prophylactics. Additional plan as per the hospital course. A total of 45 minutes was spent reviewing the patient record, examining the patient, making a diagnostic and therapeutic plan, discussing this plan with [facility] personnel, following up on diagnostic studies and following the patient for clinical stability excluding any and all procedures. At least 50% of this time was spent in direct, [id number] contact. Plan discussed with: Patient JUDSON TORRES MD Jun 15, 2025 20:07
[2025-06-16] VITALS (7 sets, daily range): BP systolic 128–155; BP diastolic 81–95; PULSE 72–85; RESP 18–20; TEMP 36.7; O2SAT 94–98
[2025-06-16] MEDS: MAALOX PLUS or MAALOX 30 ML PO PRN (00:07)
[2025-06-16] MEDS: HYDROcodone-ACET 5/325MG TAB PO ONE (03:15)
--- NOTE | 2025-06-16 16:05 | DVHDS2 ---
Discharge Summary Date of Admission Jun 15, 2025 at 04:48 Date of Discharge: Jun 16, 2025 Labs/Diagnostic Data: Laboratory Results Test 06/15/25 17:03 06/15/25 09:15 06/15/25 02:28 06/15/25 01:36 Influenza Type A Antigen Negative (Negative) Influenza Type B Antigen Negative (Negative) SARS-CoV-2 Antigen (Rapid) Negative (NEGATIVE) White Blood Count 8.4 10^3/uL (4.4-10.8) Red Blood Count 5.13 10^6/uL (4.0-5.20) Hemoglobin 16.1 g/dL (12.2-16.2) Hematocrit 48.2 % (36.0-46.0) Mean Corpuscular Volume 93.8 fL (80.0-100.0) Mean Corpuscular Hemoglobin 31.4 pg (28.0-32.0) Mean Corpuscular Hemoglobin Concent 33.4 g/dL (32.0-36.0) Red Cell Distribution Width 15.0 % (11.8-14.3) Platelet Count 261 10^3/uL (140-450) Mean Platelet Volume 9.1 fL (6.9-10.8) Neutrophils (%) (Auto) % (37.0-80.0) Lymphocytes (%) (Auto) % (10.0-50.0) Monocytes (%) (Auto) % (0.0-12.0) Basophils (%) (Auto) % (0.0-2.0) Neutrophils # (Auto) 10 ^3/uL (1.6-8.6) Lymphocytes # (Auto) 10 ^3/uL (0.4-5.4) Monocytes # (Auto) 10 ^3/uL (0-1.3) Differential Total Cells Counted 100.0 (100) Neutrophils % (Manual) 79 (37.0-80.0) Band Neutrophils % (Manual) 4 Lymphocytes % (Manual) 12 (10.0-50.0) Monocytes % (Manual) 4 (0-12) Eosinophils % (Manual) 1 (0-7) Basophils % (Manual) 0 (0.0-2.0) Metamyelocytes % (manual) 0 Myelocytes % (Manual) 0 Promyelocytes % (Manual) 0 Blast Cells % (Manual) 0 Reactive Lymphocytes 0 Platelet Estimate Adequate Anisocytosis (manual) Slight Erythrocyte Sedimentation Rate 2 mm/hr (0-20) Sodium Level 143 mmol/L (136-145) Potassium Level 3.7 mmol/L (3.5-5.1) Chloride Level 107 mmol/L (98-107) Carbon Dioxide Level 27 mmol/L (20-31) Anion Gap 9 (5-15) Blood Urea Nitrogen 8 mg/dL (9-23) Creatinine 0.67 mg/dL (0.550-1.02) Glomerular Filtration Rate Calc 102 mL/min (>90) BUN/Creatinine Ratio 11.9 (10.0-20.0) Serum Glucose 157 mg/dL (74-106) Calcium Level 8.8 mg/dL (8.7-10.4) Total Bilirubin 0.4 mg/dL (0.2-1.0) Direct Bilirubin 0.1 mg/dL (<0.3) Aspartate Amino Transferase (AST) 17 U/L (13-40) Alanine Aminotransferase (ALT) 16 U/L (7-40) Alkaline Phosphatase 53 U/L (46-116) C-Reactive Protein High Sensitivity 0.03 mg/dL (<1.0) B-Type Natriuretic Peptide 157.20 pg/mL (0-100) Total Protein 7.1 g/dL (5.7-8.2) Albumin 4.7 g/dL (3.2-4.8) Lipase 25 U/L (12-53) Troponin I High Sensitivity 4 ng/L (</=34) Vitamin B12 Level 434 pg/mL (211-911) Vitamin D 25-Hydroxy 88.2 ng/mL (30.0-100) Urine Color Light-brown (Yellow) Urine Clarity Ex.turbid (Clear) Urine pH 7.5 (5.0-9.0) Urine Specific [place] 1.017 (1.001-1.035) Urine Protein Negative (Negative) Urine Ketones Negative (Negative) Urine Blood Negative /uL (Negative) Urine Nitrite Negative (Negative) Urine Bilirubin Negative (Negative) Urine Urobilinogen Normal mg/dL (Negative) Urine Leukocyte Esterase Negative /uL (Negative) Urine RBC 1 /hpf (0 - 4) Urine WBC Clumps Present /hpf (None Seen) Urine Microscopic WBC 10 /HPF (0-5) Urine Squamous Epithelial Cells None seen /hpf (<5) Urine Bacteria None seen /hpf (None Seen) Urine Yeast (Budding) Many /hpf (None Seen) Urine Glucose 4+ mg/dL (Normal) Urine Opiates Screen Neg (NEGATIVE) Urine Fentanyl Screen Neg (NEGATIVE) Urine Barbiturates Screen Neg (NEGATIVE) Urine Phencyclidine Screen Neg (NEGATIVE) Urine Amphetamines Screen Neg (NEGATIVE) Urine Benzodiazepines Screen Pos (NEGATIVE) Urine Cocaine Screen Neg (NEGATIVE) Urine Cannabinoids Screen Pos (NEGATIVE) Test 06/15/25 01:11 06/15/25 00:20 Phosphorus Level 2.9 mg/dL (2.4-5.1) Magnesium Level 2.2 mg/dL (1.6-2.6) Thyroid Stimulating Hormone (TSH) 1.08 uIU/mL (0.55-4.78) Eosinophils (%) (Auto) 2.0 % (0.0-7.0) Eosinophils # (Auto) 0.2 10 ^3/uL (0-0.8) Basophils # (Auto) 0 10 ^3/uL (0-0.2) Nucleated Red Blood Cells 0.0 % Hemoglobin A1c 5.4 % A1C (<5.7) Other Laboratory Tests 06/15/25 09:15 Brief Hx & Hospital Course: 55-year-old female who has a known history of anxiety disorder, hypertension, dyslipidemia, GERD, chronic marijuana use initially presented to hospital with the chest pain eventually patient's was found to have negative troponin. Cardiology was evaluated with the patient patient does have known history of pericarditis currently on colchicine. Patient is currently chest pain free requesting to go home patient can be discharged. Condition at Discharge: Stable Final Diagnosis/Problems List 1. Chest pain CT ruled out 2. History of pericarditis currently on colchicine 3. GERD 4. Chronic marijuana use 5. Nausea and vomiting secondary to cyclic vomiting syndrome currently resolved 6. Hypertension 7. Dyslipidemia Discharge Disposition: Home SNF Discharge Will this Physician continue t: No Discharge Instruct/Medications Diet: Cardiac 2g Na,low cholest Activity: No Restrictions, As Tolerated Follow Up/Referral: Please follow up with the PCP in one week Follow up Medications: Resume home medications. Continued Medications: Baclofen (Baclofen) 20 Mg Tab 1 TAB PO BID Buspirone HCl (Buspirone HCl) 10 Mg Tab TAB PO Colchicine (Colchicine) 0.6 Mg Cap 0.6 MG PO BID for 60 Days, #120 CAP Empagliflozin (Jardiance) 10 Mg Tab 1 TAB PO DAILY Escitalopram Oxalate (Escitalopram Oxalate) 20 Mg Tab 1 TAB PO DAILY Hydrocodone-Acetaminophen (Hydrocodone Bitartrate/AC 5-325 mg) 1 Tab Tab 1 TAB PO Q4HPRN PRN, #20 TAB Lamotrigine (Lamotrigine) 100 Mg Tab 1 TAB PO BID Ondansetron Odt 4MG Tab (Zofran Po) 4 Mg Tb 4 MG PO Q4HPRN PRN, #30 TAB ODT TAB-DISSOLVE IN MOUTH, THEN SWALLOW Pramipexole Dihydrochloride (Mirapex Er) 3 Mg Tab 1 MG PO DAILY for Cramps , TAB Pregabalin (Pregabalin) 150 Mg Cap 1 CAP PO BID Topiramate (Topiramate) 25 Mg Tab 1 TAB PO BID Scheduled Baclofen (Baclofen), 1 TAB PO BID, (Reported) Colchicine (Colchicine), 0.6 MG PO BID Empagliflozin (Jardiance), 1 TAB PO DAILY, (Reported) Escitalopram Oxalate (Escitalopram Oxalate), 1 TAB PO DAILY, (Reported) Lamotrigine (Lamotrigine), 1 TAB PO BID, (Reported) Pramipexole Dihydrochloride (Mirapex Er), 1 MG PO DAILY, (Reported) Pregabalin (Pregabalin), 1 CAP PO BID, (Reported) Topiramate (Topiramate), 1 TAB PO BID, (Reported) Scheduled PRN Hydrocodone-Acetaminophen (Hydrocodone Bitartrate/AC 5-325 mg), 1 TAB PO Q4HPRN PRN Ondansetron Odt 4MG Tab (Zofran Po), 4 MG PO Q4HPRN PRN Miscellaneous Medications Buspirone HCl (Buspirone HCl), TAB PO, (Reported) Discharge Statement: "Patient was advised to return to the ER or call 911 if any headaches, dizziness, shortness of breath, chest pain, abdominal pain, bleeding, fevers, or worsening of medical condition. Patient was counseled about treatment plan, medications, possible side effects, patientverbalized understanding. All questions were answered to the best of my ability. This discharge took greater then 30 minutes in planning, reviewing documentation, counseling the patient, and discussing with other team members." ASSESSMENT ASSESSMENT Assessment 1. Chest pain CT ruled out 2. History of pericarditis currently on colchicine 3. GERD 4. Chronic marijuana use 5. Nausea and vomiting secondary to cyclic vomiting syndrome currently resolved 6. Hypertension 7. Dyslipidemia Date of Service: Jun 16, 2025 Billing Provider: MONCHO BRAXTON MD Common Visit Codes: 76087-UPR/OBS DISCH DAY >30min MONCHO BRAXTON MD Jun 16, 2025 16:05
--- NOTE | 2025-06-16 23:43 | DVHPN2 ---
Progress Note - Dictate Date Seen: Jun 16, 2025 Medical Necessity Reason Pt with a Central, PICC or Fol: No Subjective Patient was seen and evaluated in follow up. No overnight events. Patient reports anxiety with N/V. Patient is stable on room air. Telemetry reviewed. vital signs Vital Sign Date Time Temp Pulse Resp B/P (MAP) Pulse Ox O2 Delivery O2 Flow Rate FiO2 06/16/25 13:00 98.1 85 20 155/81 (105) 98 98.1 06/16/25 11:24 Room Air* 0 21 Total Intake and Output 06/15/25 06/15/25 06/16/25 15:00 23:00 07:00 Intake Total 0 ml 400 ml 300 ml Balance 0 ml 400 ml 300 ml medications Current Medications Medications Dose Ordered Sig/Cherise Route Start Time Stop Time Status Last Admin Dose Admin Enoxaparin Sodium 40 mg DAILY SC 06/15/25 10:00 06/16/25 10:17 40 MG Ondansetron HCl 4 mg Q4HPRN PRN IV 06/15/25 05:00 06/16/25 10:10 4 MG Al Hydrox/Mg Hydrox/Simethicone 30 ml Q6HP PRN PO 06/15/25 05:00 06/16/25 00:07 30 ML Sucralfate 1 gm BID@0600,2200 PO 06/15/25 05:00 06/16/25 05:06 1 GM Empaglifozin 10 mg DAILY PO 06/15/25 10:00 06/16/25 10:12 10 MG Lamotrigine 100 mg BID PO 06/15/25 10:00 06/16/25 10:11 100 MG Topiramate 25 mg BID PO 06/15/25 10:00 06/16/25 10:13 25 MG Pregabalin 150 mg BID PO 06/15/25 10:00 06/16/25 10:11 150 MG Buspirone HCl 10 mg DAILY PO 06/15/25 10:00 06/16/25 10:29 10 MG Ibuprofen 600 mg TID PO 06/15/25 06:00 06/16/25 10:09 600 MG Colchicine 0.6 mg BID PO 06/15/25 10:00 06/16/25 10:13 0.6 MG Pantoprazole Sodium 40 mg BID IV 06/15/25 10:00 06/16/25 10:13 40 MG Promethazine HCl 12.5 mg Q6HP PRN PO 06/15/25 15:30 06/15/25 16:37 12.5 MG Clonazepam 0.5 mg BID PO 06/15/25 22:00 06/16/25 10:29 0.5 MG objective GENERAL: Alert and oriented x 3. No acute distress. EYES: PERRL, EOMI. Anicteric. HENT: Moist mucous membranes. LUNGS: Clear to auscultation bilaterally. CARDIOVASCULAR: Irregular rate and rhythm. ABDOMEN: Soft, nontender and nondistended. EXTREMITIES: No edema. NEUROLOGIC: No focal neurological deficits. SKIN: Warm, dry. laboratory and microbiology Laboratory Tests 06/15/25 09:15 Test 06/15/25 09:15 Range/Units Serum Glucose 157 H 74-106 mg/dL Problem List Acute respiratory failure. Chest pain. GERD. Hypernatremia. Hypertension. Hyperlipidemia. Marijuana use. Assessment/Plan Continued all current supportive medical care. Colchicine. DVT and GI prophylactics. Additional plan as per the hospital course. Plan discussed with: Patient JUDSON TORRES MD Jun 16, 2025 14:16
== END 2025-06-16 17:01 | disposition home or self-care (01) | DRG 391 ==
LOC: EDUNIT# 00:11 → ER 00:11 → EDBD 00:11 → OVERFLOW 04:48 → TELE-WESTW 06:01
PROVIDERS: ADMIT Internal Medicine; ATTEND Internal Medicine
DX: K21.9 Gastro-esophageal reflux disease without esophagitis (principal); J96.00 Acute respiratory failure, unspecified whether with hypoxia or hypercapnia; E87.0 Hyperosmolality and hypernatremia; R07.89 Other chest pain; E66.9 Obesity, unspecified; Z68.30 Body mass index [BMI] 30.0-30.9, adult; I10 Essential (primary) hypertension; E78.5 Hyperlipidemia, unspecified; F41.9 Anxiety disorder, unspecified; F12.90 Cannabis use, unspecified, uncomplicated; R11.15 Cyclical vomiting syndrome unrelated to migraine; Z88.2 Allergy status to sulfonamides; Z90.710 Acquired absence of both cervix and uterus; Z83.3 Family history of diabetes mellitus
CPT/HCPCS: 36415; 71045; 80048; 80053; 80076; 80307; 81001; 82306; 82607; 83036; 83690; 83735; 83880; 84100; 84443; 84484; 85007; 85025; 85027; 85652; 86141; 87426; 87804; 93005; 96374; 96375; 99291; 99292; G0378; J2405; J2470